=== PATIENT | male | born 1980 | race African-American/Black ===

== ENCOUNTER 2018-05-15 15:54 | Emergency (ER) | payer SELFPAY ==
--- NOTE | 2018-05-15 17:07 | ED ---
Psychiatric Complaint - HPI Summary HPI Summary: This pt is a 37 y/o male presenting to [facility] c/o depression and SI thoughts. Pt reports he just recently moved from [place] to [place] 4 days ago. He states he is in dialysis for end stage renal disease and this makes him depressed. Today he had dialysis. Pt notes he called a cab to go back home but was charged $11 and became angry. He notes he slammed the door. Pt reports SI thoughts. Denies SI plan, HI thoughts/plan. Denies SOB, chest pain, dizziness. Pt has hx of suicide attempt 20 years ago. PMHx: ESRD, depression. Denies drug, alcohol, tobacco use. - History Of Current Complaint Chief Complaint: EDMentalHealth Hx Obtained From: Patient Onset/Duration: Lasting Days, Still Present Timing: Days Severity Currently: Moderate Character: Depressed, Angry, Frustrated Aggravating Factor(s): Recent Stress Alleviating Factor(s): Nothing Related History: Positive For: Prior Psychiatric Issues Has Suicidal: Reports: Thoughts. Denies: With A Plan Has Homicidal: Denies: Thoughts, With A Plan Recent Stressor(s): today with cab - Allergies/Home Medications Allergies/Adverse Reactions: Allergies Allergy/AdvReac Type Severity Reaction Status Date / Time morphine Allergy Hallucinati Verified 05/15/18 16:21 ons PMH/Surg Hx/FS Hx/Imm Hx Endocrine/Hematology History: Denies: Hx Diabetes Cardiovascular History: Denies: Hx Hypertension History: Reports: Hx Chronic Renal Failure, Hx Dialysis, Other Problems/ Disorders - ESRD Psychiatric History: Reports: Hx Depression - Surgical History Surgery Procedure, Year, and Place: none Infectious Disease History: No Infectious Disease History: Denies: Traveled Outside the [place] in Last 30 Days - Family History Known Family History: Positive: Diabetes - brother - Social History Alcohol Use: None Substance Use Type: Reports: None Smoking Status (MU): Never Smoked Tobacco Review of Systems Negative: Fever, Chills ENT: Negative Negative: Chest Pain Negative: Shortness Of Breath Gastrointestinal: Negative Neurological: Other - NEG: dizziness Psychological: Other - SI thoughts, angry Positive: Depressed. Negative: Other - SI plan, HI thoughts/plan All Other Systems Reviewed And Are Negative: Yes Physical Exam - Summary Physical Exam Summary: VITAL SIGNS: Reviewed. GENERAL: Patient is a well-developed and nourished male. Patient is not in any acute respiratory distress. HEAD AND FACE: No signs of trauma. No ecchymosis, hematomas or skull depressions. No sinus tenderness. EYES: PERRLA, EOMI x 2, No injected conjunctiva, no nystagmus. EARS: Hearing grossly intact. Ear canals and tympanic membranes are within normal limits. MOUTH: Oropharynx within normal limits. NECK: Supple, trachea is midline, no adenopathy, no JVD, no carotid bruit, no c- spine tenderness, neck with full ROM. CHEST: Symmetric, no tenderness at palpation LUNGS: Clear to auscultation bilaterally. No wheezing or crackles. CVS: Regular rate and rhythm, S1 and S2 present, no murmurs or gallops appreciated. ABDOMEN: Soft, non-tender. No signs of distention. No rebound, no guarding, and no masses palpated. Bowel sounds are normal. EXTREMITIES: FROM in all major joints, no edema, no cyanosis or clubbing. NEURO: Alert and oriented x 3. No acute neurological deficits. Speech is normal and follows commands. SKIN: Dry and warm Triage Information Reviewed: Yes Vital Signs On Initial Exam: Initial Vitals Temp Pulse Resp BP Pulse Ox 98.2 F 85 16 146/72 98 05/15/18 16:17 05/15/18 16:17 05/15/18 16:17 05/15/18 16:17 05/15/18 16:17 Vital Signs Reviewed: Yes Diagnostics - Vital Signs Vital Signs Temp Pulse Resp BP Pulse Ox 05/15/18 16:17 98.2 F 85 16 146/72 98 - Laboratory Result Diagrams: 05/15/18 17:21 05/15/18 17:21 Lab Statement: Any lab studies that have been ordered have been reviewed, and results considered in the medical decision making process. Course/Dx - Course Assessment/Plan: Patient is a 37 y/o male with hx of ESRD and on dialysis, who had dialysis today, presents with depression and SI thoughts. Test results show hemoglobin of 8.2 and hematocrit of 25, creatinine of 10.6. Patient's creatinine is usually about 10. Patient does not have any SOB, chest pain or dizziness. Pt is medically cleared at 18:41. He is hemodynamically stable, alert and oriented x3. Pt will be signed out to Dr. Duran pending mental health evaluation. - Differential Dx/Clinical Impression Provider Diagnosis: Depression Discharge - Sign-Out/Discharge Documenting (check all that apply): Sign-Out Patient Signing out patient TO: Barney Duran - pending dispo, awaiting MHE - Discharge Plan Condition: Stable Referrals: [facility] [Outside] - Attestation Statements Document Initiated by Scribe: Yes Documenting Scribe: Sherie Renee Provider For Whom Scribe is Documenting (Include Credential): Zhou Gao MD Scribe Attestation: Sherie Mcgregor, scribed for Zhou Gao MD on 05/15/18 at 1904.
[2018-05-15 18:35] LABS: ABS Basophils 0.1 10^3/ul (0-0.2); ABS Eosinophils 0.3 10^3/ul (0-0.6); ABS Lymphocytes 1.2 10^3/ul (1.0-4.8); ABS Monocytes 0.4 10^3/ul (0-0.8); ABS Neutrophils 3.6 10^3/ul (1.5-7.7); ABS Nucleated RBC 0.1 10^3/ul; Eosinophil % 6.3 % (0-6); Hematocrit 25 % (42-52); Hemoglobin 8.2 g/dl (14.0-18.0); Lymphocyte % 21.3 % (25-47); Mean Corpuscular HGB Conc 33 g/dl (31-36); Mean Corpuscular Hemoglobin 30 pg (27-31); Mean Corpuscular Volume 92 fL (80-94); Mean Platelet Volume 9.2 um3 (7.4-10.4); Nucleated Red Blood Cells % 0.9; Platelet Count 231 10^3/ul (150-450); Red Blood Count 2.73 10^6/ul (4.00-5.40); Red Cell Distribution Width 18 % (10.5-15); White Blood Count 5.5 10^3/ul (3.5-10.8)
[2018-05-15 18:52] LABS: EGFR Non-African American 5.7 (>60)
--- NOTE | 2018-05-15 19:38 | ED ---
Progress - Progress Note Progress Note: The patient is a sign-out from Dr. Zhou Gao MD to Dr. Barney Duran MD at change of shift at 19:00 pending mental health evaluation. He is diagnosed with depression. Patient will be discharged home. He is agreeable with this plan. Course/Dx - Diagnoses Provider Diagnoses: Depression Discharge - Sign-Out/Discharge Documenting (check all that apply): Patient Departure - Patient will be discharged home., Receiving Sign-Out Receiving patient FROM: Zhou Gao - Patient is a sign-out from Dr. Gao at shift change pending MHE. - Discharge Plan Condition: Stable Disposition: HOME Patient Education Materials: Depression (ED) Referrals: [facility] [Outside] Additional Instructions: Per completion of a mental health evaluation, you are cleared for release and do not require inpatient psychiatric hospitalization at this time. Please go to nearest emergency room or call 911 if safety concerns arise or condition worsens. Important Phone Numbers: [facility] ph:[phone] Su[facility] Prevention [facility] Crisis Services ph:[phone] National Suicide Prevention Lifeline ph:[phone] ([phone]) [facility] ph:[phone] Alcoholics Anonymous ph: [facility] ph:[phone] [facility] ph:[phone] Follow up with [facility] on Friday . Return if symptoms worsen or necessary. - Billing Disposition and Condition Condition: STABLE Disposition: Home - Attestation Statements Document Initiated by Harshilibe: Yes Documenting Scribe: Justyna Salgado Provider For Whom Vidhi is Documenting (Include Credential): Dr. Barney Duran MD Scribe Attestation: Justyna Mcgregor scribed for Dr. Barney Duran MD on 05/16/18 at 0614. Scribe Documentation Reviewed: Yes Provider Attestation: The documentation as recorded by the Justyna yoder accurately reflects the service I personally performed and the decisions made by me, Dr. Barney Duran MD
[2018-05-15 22:48] VITALS: BP 140/46
== END 2018-05-15 23:13 | disposition home or self-care (01) ==
LOC: ED 15:54
DX: F32.9 Major depressive disorder, single episode, unspecified (principal); N18.6 End stage renal disease; Z87.891 Personal history of nicotine dependence
CPT/HCPCS: 36415; 80053; 80320; 80329; 84443; 85025; 99284; G0480

== ENCOUNTER 2018-06-15 12:36 | Observation (INO) | payer MEDICAID, OTHER ==
[2018-06-15 15:09] LABS: ABS Basophils 0 10^3/ul (0-0.2); ABS Eosinophils 0.4 10^3/ul (0-0.6); ABS Lymphocytes 1.1 10^3/ul (1.0-4.8); ABS Monocytes 0.3 10^3/ul (0-0.8); ABS Neutrophils 3.4 10^3/ul (1.5-7.7); ABS Nucleated RBC 0 10^3/ul; Eosinophil % 7.3 % (0-6); Hematocrit 27 % (42-52); Hemoglobin 8.6 g/dl (14.0-18.0); Lymphocyte % 20.8 % (25-47); Mean Corpuscular HGB Conc 33 g/dl (31-36); Mean Corpuscular Hemoglobin 30 pg (27-31); Mean Corpuscular Volume 93 fL (80-94); Mean Platelet Volume 8.5 fL (7.4-10.4); Nucleated Red Blood Cells % 0.2; Platelet Count 204 10^3/ul (150-450); Red Blood Count 2.86 10^6/ul (4.00-5.40); Red Cell Distribution Width 18 % (10.5-15); White Blood Count 5.2 10^3/ul (3.5-10.8)
[2018-06-15 15:40] LABS: Albumin 3.3 g/dL (3.2-5.2); Albumin/Globulin Ratio 1.2 (1-3); C Reactive Protein 14.48 mg/L (<8.01); Calcium 7.6 mg/dL (8.6-10.3); EGFR African American 5.4 (>60); EGFR Non-African American 4.5 (>60); Globulin 2.7 g/dL (2-4); Potassium 4.3 mmol/L (3.5-5.0); Total Bilirubin 0.3 mg/dL (0.2-1.0)
[2018-06-15] MEDS: NS 0.9% 1000 ML** 1,000 ML IV ONE ×2 (17:21→17:25)
--- NOTE | 2018-06-15 19:28 | ED ---
Abdominal Pain/Male - HPI Summary HPI Summary: Patient on dialysis complains of generalized upper abdominal pain 1 week, exertional SOB 2 days. Abdominal pain described as intermittent, worse with eating. Denies fever, sore throat, KRISHNA, neck stiffness, CP, N/V/D, change in urine, change in BM. Medical history is dialysis. Abdominal surgical history is none. - History of Current Complaint Chief Complaint: EDAbdPain Stated Complaint: ABD PAIN Time Seen by Provider: 06/15/18 14:59 Hx Obtained From: Patient Onset/Duration: Gradual Onset Timing: Intermittent, Lasting Days Severity Initially: Moderate Severity Currently: Severe Pain Intensity: 10 Pain Scale Used: 0-10 Numeric Location: Discrete At: RUQ, Discrete At: LUQ, Epigastric Radiates: No Character: Sharp, Cramping Aggravating Factor(s): Food Alleviating Factor(s): Nothing Associated Signs And Symptoms: Positive: Negative - Allergies/Home Medications Allergies/Adverse Reactions: Allergies Allergy/AdvReac Type Severity Reaction Status Date / Time morphine Allergy Hallucinati Verified 06/15/18 12:45 ons PMH/Surg Hx/FS Hx/Imm Hx Endocrine/Hematology History: Denies: Hx Diabetes Cardiovascular History: Denies: Hx Hypertension History: Reports: Hx Chronic Renal Failure, Hx Dialysis, Other Problems/ Disorders - ESRD Psychiatric History: Reports: Hx Depression Denies: Hx Eating Disorder, Hx of Violent Episodes Against Others - Surgical History Surgery Procedure, Year, and Place: none Infectious Disease History: No Infectious Disease History: Denies: Traveled Outside the US in Last 30 Days - Family History Known Family History: Positive: Diabetes - brother - Social History Alcohol Use: None Substance Use Type: Reports: None Smoking Status (MU): Never Smoked Tobacco Review of Systems Constitutional: Negative Eyes: Negative ENT: Negative Cardiovascular: Negative Positive: Shortness Of Breath Positive: Abdominal Pain Genitourinary: Negative Musculoskeletal: Negative Skin: Negative Neurological: Negative Psychological: Normal All Other Systems Reviewed And Are Negative: Yes Physical Exam - Summary Physical Exam Summary: Pain with palpation of right upper quadrant and epigastrium. Positive Kohler' s. Abdominal exam otherwise mild. Triage Information Reviewed: Yes Vital Signs On Initial Exam: Initial Vitals Temp Pulse Resp BP Pulse Ox 97.4 F 84 16 138/54 98 06/15/18 12:40 06/15/18 12:40 06/15/18 12:40 06/15/18 12:40 06/15/18 12:40 Vital Signs Reviewed: Yes Appearance: Positive: Well-Appearing Skin: Positive: Warm Head/Face: Positive: Normal Head/Face Inspection Eyes: Positive: Normal Neck: Positive: Supple Respiratory/Lung Sounds: Positive: Clear to Auscultation Cardiovascular: Positive: Normal Abdomen Description: Positive: Other: Musculoskeletal: Positive: Normal Neurological: Positive: Normal Psychiatric: Positive: Normal AVPU Assessment: Alert - [place] Coma Scale Best Eye Response: 4 - Spontaneous Best Motor Response: 6 - Obeys Commands Best Verbal Response: 5 - Oriented Coma Scale Total: 15 Diagnostics - Vital Signs Vital Signs Temp Pulse Resp BP Pulse Ox 06/15/18 12:40 97.4 F 84 16 138/54 98 - Laboratory Lab Results: Lab Results 06/15/18 06/15/18 06/15/18 Range/Units 14:56 14:56 14:56 WBC 5.2 (3.5-10.8) 10^3/ul RBC 2.86 L (4.00-5.40) 10^6/ul Hgb 8.6 L (14.0-18.0) g/dl Hct 27 L (42-52) % MCV 93 (80-94) fL MCH 30 (27-31) pg MCHC 33 (31-36) g/dl RDW 18 H (10.5-15) % Plt Count 204 (150-450) 10^3/ul MPV 8.5 (7.4-10.4) fL Neut % (Auto) 65.1 (38-83) % Lymph % (Auto) 20.8 L (25-47) % [place] % (Auto) 6.6 (0-7) % Eos % (Auto) 7.3 H (0-6) % Baso % (Auto) 0.2 (0-2) % Absolute Neuts (auto) 3.4 (1.5-7.7) 10^3/ul Absolute Lymphs (auto) 1.1 (1.0-4.8) 10^3/ul Absolute Monos (auto) 0.3 (0-0.8) 10^3/ul Absolute Eos (auto) 0.4 (0-0.6) 10^3/ul Absolute Basos (auto) 0 (0-0.2) 10^3/ul Absolute Nucleated RBC 0 10^3/ul Nucleated RBC % 0.2 Sodium 142 (135-145) mmol/L Potassium 4.3 (3.5-5.0) mmol/L Chloride 101 (101-111) mmol/L Carbon Dioxide 27 (22-32) mmol/L Anion Gap 14 H (2-11) mmol/L BUN 50 H (6-24) mg/dL Creatinine 12.58 H (0.67-1.17) mg/dL Est GFR ( Amer) 5.4 (>60) Est GFR (Non-Af Amer) 4.5 (>60) BUN/Creatinine Ratio 4.0 L (8-20) Glucose 148 H (70-100) mg/dL Lactic Acid 1.1 (0.5-2.0) mmol/L Calcium 7.6 L (8.6-10.3) mg/dL Total Bilirubin 0.30 (0.2-1.0) mg/dL AST 12 L (13-39) U/L ALT 21 (7-52) U/L Alkaline Phosphatase 59 (34-104) U/L Troponin I 0.00 (<0.04) ng/mL C-Reactive Protein 14.48 H (<8.01) mg/L B-Natriuretic Peptide (<=100) pg/mL Total Protein 6.0 L (6.4-8.9) g/dL Albumin 3.3 (3.2-5.2) g/dL Globulin 2.7 (2-4) g/dL Albumin/Globulin Ratio 1.2 (1-3) Lipase 15 (11.0-82.0) U/L 06/15/18 Range/Units 14:56 WBC (3.5-10.8) 10^3/ul RBC (4.00-5.40) 10^6/ul Hgb (14.0-18.0) g/dl Hct (42-52) % MCV (80-94) fL MCH (27-31) pg MCHC (31-36) g/dl RDW (10.5-15) % Plt Count (150-450) 10^3/ul MPV (7.4-10.4) fL Neut % (Auto) (38-83) % Lymph % (Auto) (25-47) % [place] % (Auto) (0-7) % Eos % (Auto) (0-6) % Baso % (Auto) (0-2) % Absolute Neuts (auto) (1.5-7.7) 10^3/ul Absolute Lymphs (auto) (1.0-4.8) 10^3/ul Absolute Monos (auto) (0-0.8) 10^3/ul Absolute Eos (auto) (0-0.6) 10^3/ul Absolute Basos (auto) (0-0.2) 10^3/ul Absolute Nucleated RBC 10^3/ul Nucleated RBC % Sodium (135-145) mmol/L Potassium (3.5-5.0) mmol/L Chloride (101-111) mmol/L Carbon Dioxide (22-32) mmol/L Anion Gap (2-11) mmol/L BUN (6-24) mg/dL Creatinine (0.67-1.17) mg/dL Est GFR ( Amer) (>60) Est GFR (Non-Af Amer) (>60) BUN/Creatinine Ratio (8-20) Glucose (70-100) mg/dL Lactic Acid (0.5-2.0) mmol/L Calcium (8.6-10.3) mg/dL Total Bilirubin (0.2-1.0) mg/dL AST (13-39) U/L ALT (7-52) U/L Alkaline Phosphatase (34-104) U/L Troponin I (<0.04) ng/mL C-Reactive Protein (<8.01) mg/L B-Natriuretic Peptide 3318 H (<=100) pg/mL Total Protein (6.4-8.9) g/dL Albumin (3.2-5.2) g/dL Globulin (2-4) g/dL Albumin/Globulin Ratio (1-3) Lipase (11.0-82.0) U/L Result Diagrams: 06/15/18 14:56 06/15/18 14:56 Lab Statement: Any lab studies that have been ordered have been reviewed, and results considered in the medical decision making process. Abdominal Pain Fem Course/Dx - Course Course Of Treatment: Patient on dialysis complains of generalized upper abdominal pain 1 week, exertional SOB 2 days. Abdominal pain described as intermittent, worse with eating. Denies fever, sore throat, KRISHNA, neck stiffness , CP, N/V/D, change in urine, change in BM. Medical history is dialysis. Abdominal surgical history is none. Physical exam:Pain with palpation of right upper quadrant and epigastrium. Positive Kohler's. Abdominal exam otherwise mild. Ultrasound took 4 hours to get read. Ultrasound tetanus cholecystitis cannot be ruled out. Gallbladder wall thickening to 5 mm. Normal white count. Elevated LFTs normal. Discussed patient with Dr. Brooke recommends admission to hospitalist, started on Zosyn. We will consult. Admission to hospital - Diagnoses Provider Diagnoses: Acute acalculous cholecystitis Discharge - Sign-Out/Discharge Documenting (check all that apply): Patient Departure - Discharge Plan Condition: Stable Disposition: ADMITTED TO [facility] - Billing Disposition and Condition Condition: STABLE Disposition: Admitted to [facility]
[2018-06-15] MEDS ORDERED: Piperacillin/Tazobac ADVAN(*) 3.375 GM in NS 0.9% 100 ML* 100 ML IVPB ONE ×2 (19:55→20:00)
[2018-06-15] MEDS ORDERED: Morphine VIAL* 4 MG/ML VIAL (1 ml vial) IV PRN (20:04)
[2018-06-15] MEDS ORDERED: Thiamine IV* 100 MG/ML 2 ML VIAL IM ONE (20:06)
[2018-06-15] MEDS ORDERED: Albuterol/Ipratropium NEB.SOL* Albuterol 2.5 MG/Ipratropium 0.5 MG 3 ML INH PRN (20:43)
[2018-06-15] MEDS ORDERED: Famotidine TAB* 20 MG PO ONE (20:52)
[2018-06-15] MEDS ORDERED: LORazepam INJ* 2 MG/ML 1 ML VIAL IV PUSH SCH (21:00)
[2018-06-15] MEDS ORDERED: Piperacillin/Tazobactam VIAL*) 3.375 GM/15 ML VIAL IVPB SCH (21:00)
[2018-06-15] MEDS ORDERED: NS 0.9% 1000 ML** 1,000 ML IV SCH (21:45)
[2018-06-15] MEDS ORDERED: cefTRIAXone VIAL(*) 1,000 MG in NS 0.9% 50 ML* 50 ML IVPB SCH (22:00)
[2018-06-15] MEDS: Benzonatate CAP* 100 MG PO SCH (22:16)
[2018-06-15] MEDS: Aspirin EC TAB* 81 MG TAB.EC PO SCH (22:17)
--- NOTE | 2018-06-15 22:21 | ADMNOTE ---
Subjective Date of Service: 06/15/18 Interval History: code status this is an admission h/p pt is a poor historian not even sure why he is on hd hpi this is a 37 yr old aa male with hx of esrd for the 5 yrs on presented to er with stomach pain for one week. pain described sharp type intermittant each episode would last 10-20 min intensity has been around 6-8/10. now his abd pain has progressed to chest pain with some sob. going to have bm makes the pain better but does not notice anything makes it worse. last meal was 10 am today. abd sono + acalculous cholycystitis but wbc was neg ---> surgery Dr Moya was called from er and suggested first started with abx will see pt in am phx esrd on hd with left arm av fistula on for the past 5 yrs ---> pt himself was not sure why he has been on hd ( reluctant to reveal his illicit drug/st drug use hx ) htn morbid obesity ? 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 fhx brother + dm Family History: Findings - brother + dm Social History: Findings - quit cig 3 yrs quit etoh 5 yrs ago still uses marijuana Past Medical History: Findings - as above Review of Systems - Measurements Intake and Output: Intake and Output Last 24 Hours 06/13/18 06/14/18 06/15/18 06/16/18 07:59 06:59 06:59 06:59 Weight 244 lb 0.827 oz - Review of Systems General Comments: pertinent as per hpi Objective Active Medications: Albuterol/Ipratropium (Duoneb (Albuterol 2.5 Mg/Ipratropium 0.5 Mg)) 1 neb INH Q6H PRN PRN Reason: SOB/WHEEZING Aspirin (Aspirin Ec Tab*) 81 mg PO DAILY [place] Benzonatate (Tessalon Cap*) 100 mg PO TID [place] Metronidazole/Sodium Chloride (Flagyl 500 Mg Ivpb*) 500 mg in 100 mls @ 100 mls /hr IVPB Q8H [place] Morphine Sulfate (Morphine Vial*) 1 mg IV Q4H PRN PRN Reason: PAIN Ondansetron HCl (Zofran Inj*) 4 mg IV Q6H PRN PRN Reason: NAUSEA Piperacillin Sod/Tazobactam Sod (Zosyn(*)) 2.25 gm IVPB Q12H [facility] Vital Signs - 8 hr 06/15/18 06/15/18 06/15/18 17:50 21:24 22:08 Temperature 98.5 F 98.3 F 98.2 F Pulse Rate 76 89 88 Respiratory 20 16 18 Rate Blood Pressure 140/60 125/83 135/66 (mmHg) O2 Sat by Pulse 98 99 98 Oximetry Oxygen Devices in Use Now: Nasal Cannula Appearance: nad Eyes: No Scleral Icterus, PERRLA Ears/Nose/Mouth/Throat: NL Teeth, Lips, Gums, Clear Oropharnyx, Mucous Membranes Moist Neck: NL Appearance and Movements; NL JVP, Trachea Midline, No Thyroid Enlargement, Masses Respiratory: Symmetrical Chest Expansion and Respiratory Effort, Clear to Auscultation Cardiovascular: NL Sounds; No Murmurs; No JVD, RRR Abdominal: - - + bs + ruq tenderness > luq tenderness Extremities: No Edema, - - able to raise ue and le against gravity Skin: No Rash or Ulcers Neurological: Alert and Oriented x 3, NL Sensation, NL Muscle Strength and Tone Result Diagrams: 06/16/18 03:13 06/16/18 03:13 Additional Lab and Data: Lab Results 06/15/18 06/15/18 06/15/18 Range/Units 14:56 14:56 14:56 WBC 5.2 (3.5-10.8) 10^3/ul RBC 2.86 L (4.00-5.40) 10^6/ul Hgb 8.6 L (14.0-18.0) g/dl Hct 27 L (42-52) % MCV 93 (80-94) fL MCH 30 (27-31) pg MCHC 33 (31-36) g/dl RDW 18 H (10.5-15) % Plt Count 204 (150-450) 10^3/ul MPV 8.5 (7.4-10.4) fL Neut % (Auto) 65.1 (38-83) % Lymph % (Auto) 20.8 L (25-47) % [place] % (Auto) 6.6 (0-7) % Eos % (Auto) 7.3 H (0-6) % Baso % (Auto) 0.2 (0-2) % Absolute Neuts (auto) 3.4 (1.5-7.7) 10^3/ul Absolute Lymphs (auto) 1.1 (1.0-4.8) 10^3/ul Absolute Monos (auto) 0.3 (0-0.8) 10^3/ul Absolute Eos (auto) 0.4 (0-0.6) 10^3/ul Absolute Basos (auto) 0 (0-0.2) 10^3/ul Absolute Nucleated RBC 0 10^3/ul Nucleated RBC % 0.2 Sodium 142 (135-145) mmol/L Potassium 4.3 (3.5-5.0) mmol/L Chloride 101 (101-111) mmol/L Carbon Dioxide 27 (22-32) mmol/L Anion Gap 14 H (2-11) mmol/L BUN 50 H (6-24) mg/dL Creatinine 12.58 H (0.67-1.17) mg/dL Est GFR ( Amer) 5.4 (>60) Est GFR (Non-Af Amer) 4.5 (>60) BUN/Creatinine Ratio 4.0 L (8-20) Glucose 148 H (70-100) mg/dL Lactic Acid 1.1 (0.5-2.0) mmol/L Calcium 7.6 L (8.6-10.3) mg/dL Total Bilirubin 0.30 (0.2-1.0) mg/dL AST 12 L (13-39) U/L ALT 21 (7-52) U/L Alkaline Phosphatase 59 (34-104) U/L Troponin I 0.00 (<0.04) ng/mL C-Reactive Protein 14.48 H (<8.01) mg/L B-Natriuretic Peptide (<=100) pg/mL Total Protein 6.0 L (6.4-8.9) g/dL Albumin 3.3 (3.2-5.2) g/dL Globulin 2.7 (2-4) g/dL Albumin/Globulin Ratio 1.2 (1-3) Lipase 15 (11.0-82.0) U/L 11/05/18 Range/Units 14:56 WBC (3.5-10.8) 10^3/ul RBC (4.00-5.40) 10^6/ul Hgb (14.0-18.0) g/dl Hct (42-52) % MCV (80-94) fL MCH (27-31) pg MCHC (31-36) g/dl RDW (10.5-15) % Plt Count (150-450) 10^3/ul MPV (7.4-10.4) fL Neut % (Auto) (38-83) % Lymph % (Auto) (25-47) % [place] % (Auto) (0-7) % Eos % (Auto) (0-6) % Baso % (Auto) (0-2) % Absolute Neuts (auto) (1.5-7.7) 10^3/ul Absolute Lymphs (auto) (1.0-4.8) 10^3/ul Absolute Monos (auto) (0-0.8) 10^3/ul Absolute Eos (auto) (0-0.6) 10^3/ul Absolute Basos (auto) (0-0.2) 10^3/ul Absolute Nucleated RBC 10^3/ul Nucleated RBC % Sodium (135-145) mmol/L Potassium (3.5-5.0) mmol/L Chloride (101-111) mmol/L Carbon Dioxide (22-32) mmol/L Anion Gap (2-11) mmol/L BUN (6-24) mg/dL Creatinine (0.67-1.17) mg/dL Est GFR ( Amer) (>60) Est GFR (Non-Af Amer) (>60) BUN/Creatinine Ratio (8-20) Glucose (70-100) mg/dL Lactic Acid (0.5-2.0) mmol/L Calcium (8.6-10.3) mg/dL Total Bilirubin (0.2-1.0) mg/dL AST (13-39) U/L ALT (7-52) U/L Alkaline Phosphatase (34-104) U/L Troponin I (<0.04) ng/mL C-Reactive Protein (<8.01) mg/L B-Natriuretic Peptide 3318 H (<=100) pg/mL Total Protein (6.4-8.9) g/dL Albumin (3.2-5.2) g/dL Globulin (2-4) g/dL Albumin/Globulin Ratio (1-3) Lipase (11.0-82.0) U/L EKG Data: ns no acute st t changes Assess/Plan/Problems-Billing Assessment: this is a 37 yr old aa male with hx of esrd on hd for 5 yrs presented to er first with abd pain later mixed with chest pain. abd sono showed achaculous cholycystitis intial wbc was neg got zosyn and flagyl while waiting for surgery eval intial trop and ekg were neg stress ordered for am due to the fact he is high risk with esrd - Patient Problems (1) ESRD (end stage renal disease) Current Visit: Yes Status: Acute Code(s): N18.6 - END STAGE RENAL DISEASE SNOMED Code(s): 69170662 Comment: will call renal for hd today (2) HTN (hypertension) Current Visit: Yes Status: Acute Code(s): I10 - ESSENTIAL (PRIMARY) HYPERTENSION SNOMED Code(s): 59752494 Comment: sbp wnl continue outpt meds (3) Morbid obesity Current Visit: Yes Status: Acute Code(s): E66.01 - MORBID (SEVERE) OBESITY DUE TO EXCESS CALORIES SNOMED Code(s): 151007188 Comment: supportive care (4) Marijuana dependence Current Visit: Yes Status: Acute Code(s): F12.20 - CANNABIS DEPENDENCE, UNCOMPLICATED SNOMED Code(s): 67994928 Comment: supportive care (5) Abdominal pain Current Visit: Yes Status: Acute Code(s): R10.9 - UNSPECIFIED ABDOMINAL PAIN SNOMED Code(s): 10577453 Comment: ultram prn for pain 25 mg bid prn based upon his esrd status surgery will see him in am acachulous cholycystitis due to generalized gall bladder wall thickening despite no wbc/fever on abx zosyn and flaygl while waiting for surgery eval strict npo (6) Chest pain Current Visit: Yes Status: Acute Code(s): R07.9 - CHEST PAIN, UNSPECIFIED SNOMED Code(s): 82977487 Comment: tele with rodger stress test (7) Leaky heart valve Current Visit: Yes Status: Acute Code(s): I38 - ENDOCARDITIS, VALVE UNSPECIFIED SNOMED Code(s): 28500538 Comment: echo in am
[2018-06-15] MEDS ORDERED: Zosyn per Pharmacy* NOTE FOLLOW UP PRN (22:47)
[2018-06-15] MEDS ORDERED: Zosyn 3.375 gm X 1 dose, then dose per Pharmacy IVPB ONE ×2 (23:00)
[2018-06-15] MEDS: metroNIDAZOLE IV 500 MG/100ML* 500 MG/100 ML BAG IVPB SCH (23:17)
[2018-06-16] MEDS ORDERED: traMADol TAB* 50 MG PO ONE ×2 (01:00→10:25)
[2018-06-16] MEDS: Ondansetron INJ* 2 MG/ML VIAL IV PRN ×2 (01:07→07:30)
[2018-06-16] MEDS: ZOSYN 3.375 GM Q12H per EXTENDED INFUSION IVPB SCH ×4 (03:12→16:03)
[2018-06-16 03:32] LABS: ABS Basophils 0.1 10^3/ul (0-0.2); ABS Eosinophils 0.4 10^3/ul (0-0.6); ABS Lymphocytes 1.2 10^3/ul (1.0-4.8); ABS Monocytes 0.3 10^3/ul (0-0.8); ABS Neutrophils 2.4 10^3/ul (1.5-7.7); ABS Nucleated RBC 0 10^3/ul; Eosinophil % 9.7 % (0-6); Hematocrit 25 % (42-52); Hemoglobin 8.1 g/dl (14.0-18.0); Lymphocyte % 26.4 % (25-47); Mean Corpuscular HGB Conc 32 g/dl (31-36); Mean Corpuscular Hemoglobin 30 pg (27-31); Mean Corpuscular Volume 93 fL (80-94); Mean Platelet Volume 8.7 fL (7.4-10.4); Nucleated Red Blood Cells % 0.1; Platelet Count 208 10^3/ul (150-450); Red Blood Count 2.72 10^6/ul (4.00-5.40); Red Cell Distribution Width 19 % (10.5-15); White Blood Count 4.4 10^3/ul (3.5-10.8)
[2018-06-16 03:48] LABS: Albumin 3.2 g/dL (3.2-5.2); Albumin/Globulin Ratio 1.3 (1-3); BUN/Creatinine Ratio 3.9 (8-20); Calcium 7.8 mg/dL (8.6-10.3); EGFR African American 4.9 (>60); Globulin 2.5 g/dL (2-4); HDL Cholesterol 24.6 mg/dL; Potassium 4.5 mmol/L (3.5-5.0); Total Bilirubin 0.5 mg/dL (0.2-1.0); Total Protein 5.7 g/dL (6.4-8.9)
[2018-06-16 04:21] LABS: TSH (Thyroid Stimulating Horm) 2.07 mcIU/mL (0.34-5.60)
[2018-06-16] MEDS: Benzonatate CAP* 100 MG PO SCH ×3 (07:30→20:31)
[2018-06-16] MEDS: Aspirin EC TAB* 81 MG TAB.EC PO SCH (07:30)
[2018-06-16] MEDS: metroNIDAZOLE IV 500 MG/100ML* 500 MG/100 ML BAG IVPB SCH ×2 (08:29→14:23)
[2018-06-16] MEDS ORDERED: traMADol TAB* 50 MG PO PRN ×3 (12:40→16:57)
--- NOTE | 2018-06-16 15:21 | PN ---
Subjective Date of Service: 06/16/18 Interval History: . Pt reports he continues to have pain in his right upper abdomen stating its the same as yesterday. He reports that it started approx 1 week ago but he didn't think much about it but has become increasing worse over the last week. worse after eating. Denies fever or chills. No N/V/D. Pt is upset that he is NPO and states he feels hungry. He denies CP/SOB Family History: Findings - brother + dm Social History: Findings - quit cig 3 yrs quit etoh 5 yrs ago still uses marijuana Past Medical History: Findings - as above Objective Active Medications: Albuterol/Ipratropium (Duoneb (Albuterol 2.5 Mg/Ipratropium 0.5 Mg)) 1 neb INH Q6H PRN PRN Reason: SOB/WHEEZING Aspirin (Aspirin Ec Tab*) 81 mg PO DAILY [facility] Last Admin: 06/16/18 07:30 Dose: 81 mg Benzonatate (Tessalon Cap*) 100 mg PO TID [facility] Last Admin: 06/16/18 14:22 Dose: 100 mg Metronidazole/Sodium Chloride (Flagyl 500 Mg Ivpb*) 500 mg in 100 mls @ 100 mls /hr IVPB Q8H [facility] Last Admin: 06/16/18 14:23 Dose: 100 mls/hr Piperacillin Sod/Tazobactam (Sod 3.375 gm/ Sodium Chloride) 100 mls @ 25 mls/ hr IVPB Q12H [facility] Last Admin: 06/16/18 03:12 Dose: 25 mls/hr Ondansetron HCl (Zofran Inj*) 4 mg IV Q6H PRN PRN Reason: NAUSEA Last Admin: 06/16/18 07:30 Dose: 4 mg Pharmacy Consult (Zosyn Per Pharmacy*) 1 note FOLLOW UP . PRN PRN Reason: PER PROTOCOL Tramadol HCl (Ultram*) 25 mg PO Q6H PRN PRN Reason: PAIN Vital Signs - 8 hr 06/16/18 06/16/18 06/16/18 07:43 08:12 11:14 Temperature 97.8 F Pulse Rate 78 Respiratory 18 16 22 Rate Blood Pressure 102/40 (mmHg) O2 Sat by Pulse 98 Oximetry Oxygen Devices in Use Now: Nasal Cannula Appearance: A+O x3 37 yo chronically ill appearing male in NAD Eyes: No Scleral Icterus, PERRLA Ears/Nose/Mouth/Throat: Mucous Membranes Moist Respiratory: Symmetrical Chest Expansion and Respiratory Effort, Clear to Auscultation Cardiovascular: NL Sounds; No Murmurs; No JVD, RRR, - Abdominal: - - obese, distended, soft - tender with mild guarding to RUQ. NL BS. Extremities: No Clubbing, Cyanosis Neurological: Alert and Oriented x 3, NL Sensation, NL Gait, NL Muscle Strength and Tone Lines/Tubes/Other Access: Clean, Dry and Intact Peripheral IV Nutrition: - - NPO Result Diagrams: 06/16/18 03:13 06/16/18 03:13 Additional Lab and Data: Lab Results 06/15/18 06/15/18 06/15/18 Range/Units 14:56 14:56 14:56 WBC 5.2 (3.5-10.8) 10^3/ul RBC 2.86 L (4.00-5.40) 10^6/ul Hgb 8.6 L (14.0-18.0) g/dl Hct 27 L (42-52) % MCV 93 (80-94) fL MCH 30 (27-31) pg MCHC 33 (31-36) g/dl RDW 18 H (10.5-15) % Plt Count 204 (150-450) 10^3/ul MPV 8.5 (7.4-10.4) fL Neut % (Auto) 65.1 (38-83) % Lymph % (Auto) 20.8 L (25-47) % [place] % (Auto) 6.6 (0-7) % Eos % (Auto) 7.3 H (0-6) % Baso % (Auto) 0.2 (0-2) % Absolute Neuts (auto) 3.4 (1.5-7.7) 10^3/ul Absolute Lymphs (auto) 1.1 (1.0-4.8) 10^3/ul Absolute Monos (auto) 0.3 (0-0.8) 10^3/ul Absolute Eos (auto) 0.4 (0-0.6) 10^3/ul Absolute Basos (auto) 0 (0-0.2) 10^3/ul Absolute Nucleated RBC 0 10^3/ul Nucleated RBC % 0.2 Sodium 142 (135-145) mmol/L Potassium 4.3 (3.5-5.0) mmol/L Chloride 101 (101-111) mmol/L Carbon Dioxide 27 (22-32) mmol/L Anion Gap 14 H (2-11) mmol/L BUN 50 H (6-24) mg/dL Creatinine 12.58 H (0.67-1.17) mg/dL Est GFR ( Amer) 5.4 (>60) Est GFR (Non-Af Amer) 4.5 (>60) BUN/Creatinine Ratio 4.0 L (8-20) Glucose 148 H (70-100) mg/dL Lactic Acid 1.1 (0.5-2.0) mmol/L Calcium 7.6 L (8.6-10.3) mg/dL Total Bilirubin 0.30 (0.2-1.0) mg/dL AST 12 L (13-39) U/L ALT 21 (7-52) U/L Alkaline Phosphatase 59 (34-104) U/L Troponin I 0.00 (<0.04) ng/mL C-Reactive Protein 14.48 H (<8.01) mg/L B-Natriuretic Peptide (<=100) pg/mL Total Protein 6.0 L (6.4-8.9) g/dL Albumin 3.3 (3.2-5.2) g/dL Globulin 2.7 (2-4) g/dL Albumin/Globulin Ratio 1.2 (1-3) Lipase 15 (11.0-82.0) U/L 06/15/18 Range/Units 14:56 WBC (3.5-10.8) 10^3/ul RBC (4.00-5.40) 10^6/ul Hgb (14.0-18.0) g/dl Hct (42-52) % MCV (80-94) fL MCH (27-31) pg MCHC (31-36) g/dl RDW (10.5-15) % Plt Count (150-450) 10^3/ul MPV (7.4-10.4) fL Neut % (Auto) (38-83) % Lymph % (Auto) (25-47) % [place] % (Auto) (0-7) % Eos % (Auto) (0-6) % Baso % (Auto) (0-2) % Absolute Neuts (auto) (1.5-7.7) 10^3/ul Absolute Lymphs (auto) (1.0-4.8) 10^3/ul Absolute Monos (auto) (0-0.8) 10^3/ul Absolute Eos (auto) (0-0.6) 10^3/ul Absolute Basos (auto) (0-0.2) 10^3/ul Absolute Nucleated RBC 10^3/ul Nucleated RBC % Sodium (135-145) mmol/L Potassium (3.5-5.0) mmol/L Chloride (101-111) mmol/L Carbon Dioxide (22-32) mmol/L Anion Gap (2-11) mmol/L BUN (6-24) mg/dL Creatinine (0.67-1.17) mg/dL Est GFR ( Amer) (>60) Est GFR (Non-Af Amer) (>60) BUN/Creatinine Ratio (8-20) Glucose (70-100) mg/dL Lactic Acid (0.5-2.0) mmol/L Calcium (8.6-10.3) mg/dL Total Bilirubin (0.2-1.0) mg/dL AST (13-39) U/L ALT (7-52) U/L Alkaline Phosphatase (34-104) U/L Troponin I (<0.04) ng/mL C-Reactive Protein (<8.01) mg/L B-Natriuretic Peptide 3318 H (<=100) pg/mL Total Protein (6.4-8.9) g/dL Albumin (3.2-5.2) g/dL Globulin (2-4) g/dL Albumin/Globulin Ratio (1-3) Lipase (11.0-82.0) U/L EKG Data: ns no acute st t changes Assess/Plan/Problems-Billing Assessment: 37 yr old male with hx of esrd on hd for 5 yrs, anemia, hyperparathyroid s/p parathyroidectomy presented to ER first with abd pain later mixed with chest pain. abd sono showed achaculous cholycystitis - intial wbc was neg, waiting for surgery eval, intial trop and ekg were neg stress ordered due to the fact he is high risk with esrd - Patient Problems (1) Abdominal pain Comment: Possible acalculous cholycystitis due to generalized gall bladder wall thickening despite no wbc/fever on abx zosyn and flaygl - DC flagyl Surgery consult pending - discussed over the phone plan for HIDA scan in am. Consider CT abdomen if negative. NPO (2) Chest pain Comment: Resolved Pt reports chest discomfort frequently when he is more fluid overloaded troponins negative stress test report pending (3) V-tach Comment: - 14 beat run of VT overnight - asymptomatic - no further runs - K+ wnl - add on magnesium level (4) ESRD (end stage renal disease) Comment: Plan for HD tomorrow (5) HTN (hypertension) Comment: sbp wnl continue outpt meds (6) Leaky heart valve Comment: echo pending obtain previous echo from [facility] (7) Marijuana dependence Comment: supportive care (8) Depression Comment: - pt presented to the ER initially with depression and SI and was going to be DC'd to home with f/u [facility] - Pt recently moved from [place] to [place] and is unhappy with living arrangements. - social work consult (9) DVT prophylaxis Comment: patient ambulating frequently (10) Patient is full code Status and Disposition: inpatient with abdominal pain. surgery to consult
[2018-06-16 16:17] LABS: Magnesium 2.5 mg/dL (1.9-2.7)
--- NOTE | 2018-06-16 19:54 | CONS ---
CC: Primary Care Doctor; [facility]; Dr. Mariano Saeed. * SURGICAL CONSULTATION REPORT: DATE OF CONSULT: 06/16/18 HISTORY OF PRESENT ILLNESS: Mr. Govea is a 37-year-old gentleman, who presented to the emergency room yesterday with complaints of upper abdominal pain, mostly on the right side. Workup in the emergency room including ultrasound of the gallbladder showed a suggestion of acalculous cholecystitis. Our service was called and inquired about the abdominal pain and recommended additional workup if need be and possible antibiotics and admission to the hospitalist service. This was performed and I come to see the patient at this time. The patient describes an on and off abdominal pain for the past week. Denies any nausea or vomiting along with this. Did have some shortness of breath. The patient does have end-stage renal disease, on dialysis. The patient denied any previous similar symptoms as bad as this, but also describes that the pain has somewhat improved after a bowel movement earlier today. The patient is hungry and has been maintained on n.p.o. status pending surgical evaluation. PAST MEDICAL HISTORY: End-stage renal disease, hypertension. PAST SURGICAL HISTORY: Total thyroidectomy and AV fistula. No abdominal surgeries. SOCIAL HISTORY: Former smoker. Former alcohol use. The patient lives independently. He came from [place] in the beginning of May, transferred to this location where he is closer to his brother. REVIEW OF SYSTEMS: He does complain of shortness of breath, especially prior to dialysis. No appetite. He has had 1 episode of nausea today. He describes rare elements of constipation and feels that this may have been constipation type pain. He has a history of valvular disease, it is unclear. He describes abdominal pain. He describes the constipation as described. He does not urinate. PHYSICAL EXAM: He is afebrile. Vital signs stable. Blood pressure 124/55. Alert and oriented x3. He is sitting in the chair. He is comfortable. Head, Ears, Eyes, Nose and Throat: Normocephalic, atraumatic. Sclerae are anicteric. Some proptosis. Lungs: Clear to auscultation. Good inspiratory effort. Abdomen is soft, obese, tender on deep palpation in the epigastrium, in the umbilicus and at the right upper quadrant. No masses or hernias noted. No rebound tenderness. No guarding. Rectal Exam: Not performed. Extremities with a fistula functioning in the left upper extremity. DIAGNOSTIC STUDIES/LAB DATA: Labs reviewed. Normal white count. LFTs reviewed and for the most part normal. Normal lipase as well. Ultrasound report reviewed as well as the images, shows mild thickening of the gallbladder of 2.3 mm with a question of fluid around this site, atrophic kidneys, common bile duct normal caliber. IMPRESSION AND PLAN: A 37-year-old gentleman with end-stage renal disease with abdominal pain intermittent that has improved with a large bowel movement. I do not believe the patient is suffering with acalculous cholecystitis given the imaging and the physical exam and labs. Generally, we would look towards elevated white blood count and more significant exam along with more severe findings on ultrasound. CAT scan sometimes could help delineate this; however, I have recommended to the hospitalist service a HIDA scan since the patient has been started on antibiotics and I do not wish to pull off the antibiotics without a more definitive study. For this reason, we will look towards a HIDA scan. If it rules out acalculous cholecystitis by having the finding of an unobstructed cystic duct, I think the patient should have his antibiotics discontinued and look towards discharge home. The patient may consider strongly a bowel regimen. He will get dialyzed tomorrow and hopefully this will help some of his symptoms as well. We will continue to follow throughout waiting for the HIDA scan to be completed. [id number]/CPS #: [id number] CHRISS
[2018-06-16] MEDS ORDERED: guaiFENesin/CODIEN 100MG-10MG* 5 ML UDC PO ONE (23:45)
[2018-06-17] MEDS: ZOSYN 3.375 GM Q12H per EXTENDED INFUSION IVPB SCH ×4 (03:14→15:28)
[2018-06-17] MEDS: Benzonatate CAP* 100 MG PO SCH ×3 (08:41→20:49)
[2018-06-17] MEDS: Aspirin EC TAB* 81 MG TAB.EC PO SCH (08:41)
--- NOTE | 2018-06-17 12:35 | PN ---
Progress Note - Progress Note Date of Service: 06/17/18 SOAP: Subjective: Pt seen and examined. Feels well and wants to go home after HD today. Objective: Temp Pulse Resp BP Pulse Ox 97.9 F 76 16 121/43 100 06/17/18 11:09 06/17/18 11:09 06/17/18 11:09 06/17/18 11:09 06/17/18 11:09 a and o x3, nad abdo:" soft/ obese/ NT HIDA: normal filling of cystic duct Assessment: abdominal pain -resolved , unclear etiology but not related to acalc cholecystitis Plan: d/c abx advance diet HD d/c as per hosp service
--- NOTE | 2018-06-17 17:41 | PN ---
Subjective Date of Service: 06/17/18 Interval History: Patient seen and examined, states his abdominal pain has improved with regular bowel movements, denies fever or chills, denies n/v. frustrated with NPO status this AM, explained that he needs to have HIDA scan first and be clear by surgery. Patient agreeable. Family History: Findings - brother + dm Social History: Findings - quit cig 3 yrs quit etoh 5 yrs ago still uses marijuana Past Medical History: Findings - as above Objective Active Medications: Albuterol/Ipratropium (Duoneb (Albuterol 2.5 Mg/Ipratropium 0.5 Mg)) 1 neb INH Q6H PRN PRN Reason: SOB/WHEEZING Aspirin (Aspirin Ec Tab*) 81 mg PO DAILY [facility] Last Admin: 06/17/18 08:41 Dose: Not Given Benzonatate (Tessalon Cap*) 100 mg PO TID [facility] Last Admin: 06/17/18 12:29 Dose: 100 mg Epoetin Gustavo (Epogen*) 10,000 units IV ONCE ONE Stop: 06/17/18 18:01 Heparin Sodium (Porcine) (Heparin Dialysis Only(*)) 5,000 units DIALYSIS ONCE ONE Stop: 06/17/18 18:01 Ondansetron HCl (Zofran Inj*) 4 mg IV Q6H PRN PRN Reason: NAUSEA Last Admin: 06/16/18 07:30 Dose: 4 mg Tramadol HCl (Ultram*) 25 mg PO Q8H PRN PRN Reason: PAIN Vital Signs - 8 hr 06/17/18 06/17/18 11:09 16:09 Temperature 97.9 F 98.1 F Pulse Rate 76 85 Respiratory 16 16 Rate Blood Pressure 121/43 130/46 (mmHg) O2 Sat by Pulse 100 97 Oximetry Oxygen Devices in Use Now: None Appearance: Alert, NAD Ears/Nose/Mouth/Throat: Clear Oropharnyx, Mucous Membranes Moist Neck: NL Appearance and Movements; NL JVP, Trachea Midline Respiratory: Symmetrical Chest Expansion and Respiratory Effort, - - crackles bibasilar Cardiovascular: NL Sounds; No Murmurs; No JVD, RRR Extremities: No Clubbing, Cyanosis, - - mild generalized edema Skin: No Rash or Ulcers Neurological: Alert and Oriented x 3 Nutrition: - - NPO Result Diagrams: 06/16/18 03:13 06/16/18 03:13 Additional Lab and Data: Lab Results 06/15/18 06/15/18 06/15/18 Range/Units 14:56 14:56 14:56 WBC 5.2 (3.5-10.8) 10^3/ul RBC 2.86 L (4.00-5.40) 10^6/ul Hgb 8.6 L (14.0-18.0) g/dl Hct 27 L (42-52) % MCV 93 (80-94) fL MCH 30 (27-31) pg MCHC 33 (31-36) g/dl RDW 18 H (10.5-15) % Plt Count 204 (150-450) 10^3/ul MPV 8.5 (7.4-10.4) fL Neut % (Auto) 65.1 (38-83) % Lymph % (Auto) 20.8 L (25-47) % [place] % (Auto) 6.6 (0-7) % Eos % (Auto) 7.3 H (0-6) % Baso % (Auto) 0.2 (0-2) % Absolute Neuts (auto) 3.4 (1.5-7.7) 10^3/ul Absolute Lymphs (auto) 1.1 (1.0-4.8) 10^3/ul Absolute Monos (auto) 0.3 (0-0.8) 10^3/ul Absolute Eos (auto) 0.4 (0-0.6) 10^3/ul Absolute Basos (auto) 0 (0-0.2) 10^3/ul Absolute Nucleated RBC 0 10^3/ul Nucleated RBC % 0.2 Sodium 142 (135-145) mmol/L Potassium 4.3 (3.5-5.0) mmol/L Chloride 101 (101-111) mmol/L Carbon Dioxide 27 (22-32) mmol/L Anion Gap 14 H (2-11) mmol/L BUN 50 H (6-24) mg/dL Creatinine 12.58 H (0.67-1.17) mg/dL Est GFR ( Amer) 5.4 (>60) Est GFR (Non-Af Amer) 4.5 (>60) BUN/Creatinine Ratio 4.0 L (8-20) Glucose 148 H (70-100) mg/dL Lactic Acid 1.1 (0.5-2.0) mmol/L Calcium 7.6 L (8.6-10.3) mg/dL Total Bilirubin 0.30 (0.2-1.0) mg/dL AST 12 L (13-39) U/L ALT 21 (7-52) U/L Alkaline Phosphatase 59 (34-104) U/L Troponin I 0.00 (<0.04) ng/mL C-Reactive Protein 14.48 H (<8.01) mg/L B-Natriuretic Peptide (<=100) pg/mL Total Protein 6.0 L (6.4-8.9) g/dL Albumin 3.3 (3.2-5.2) g/dL Globulin 2.7 (2-4) g/dL Albumin/Globulin Ratio 1.2 (1-3) Lipase 15 (11.0-82.0) U/L 06/15/18 Range/Units 14:56 WBC (3.5-10.8) 10^3/ul RBC (4.00-5.40) 10^6/ul Hgb (14.0-18.0) g/dl Hct (42-52) % MCV (80-94) fL MCH (27-31) pg MCHC (31-36) g/dl RDW (10.5-15) % Plt Count (150-450) 10^3/ul MPV (7.4-10.4) fL Neut % (Auto) (38-83) % Lymph % (Auto) (25-47) % [place] % (Auto) (0-7) % Eos % (Auto) (0-6) % Baso % (Auto) (0-2) % Absolute Neuts (auto) (1.5-7.7) 10^3/ul Absolute Lymphs (auto) (1.0-4.8) 10^3/ul Absolute Monos (auto) (0-0.8) 10^3/ul Absolute Eos (auto) (0-0.6) 10^3/ul Absolute Basos (auto) (0-0.2) 10^3/ul Absolute Nucleated RBC 10^3/ul Nucleated RBC % Sodium (135-145) mmol/L Potassium (3.5-5.0) mmol/L Chloride (101-111) mmol/L Carbon Dioxide (22-32) mmol/L Anion Gap (2-11) mmol/L BUN (6-24) mg/dL Creatinine (0.67-1.17) mg/dL Est GFR ( Amer) (>60) Est GFR (Non-Af Amer) (>60) BUN/Creatinine Ratio (8-20) Glucose (70-100) mg/dL Lactic Acid (0.5-2.0) mmol/L Calcium (8.6-10.3) mg/dL Total Bilirubin (0.2-1.0) mg/dL AST (13-39) U/L ALT (7-52) U/L Alkaline Phosphatase (34-104) U/L Troponin I (<0.04) ng/mL C-Reactive Protein (<8.01) mg/L B-Natriuretic Peptide 3318 H (<=100) pg/mL Total Protein (6.4-8.9) g/dL Albumin (3.2-5.2) g/dL Globulin (2-4) g/dL Albumin/Globulin Ratio (1-3) Lipase (11.0-82.0) U/L Diagnostic Imaging: Patient Name: MARQUIS FINNEGAN Medical Record#: [id number] Ordering Physician: Karina GAONA-Karma Acct.#: [id number] : 1980 Age: 37 Sex: M Location: [address] [place] [address]/TELEMETRY Exam Date: 06/17/18 0700 ADM Status: ADM IN Order Information: NM HEPATOBIL VISUAL SCAN-HIDA Accession Number: [id number] CPT: 03337 INDICATION: Right upper quadrant pain. Comparison: Comparison is made with a prior right upper quadrant ultrasound from June 15, 2018. Technique: The patient was given an intravenous injection of 6.4 mCi of technetium 99m Choletec intravenously and multiple images of the right upper quadrant were obtained. FINDINGS: There is also prompt visualization of the extrahepatic bile ducts and gallbladder. There is normal visualization of the small bowel. IMPRESSION: NEGATIVE EXAM NORMAL VISUALIZATION OF THE GALLBLADDER. <Electronically signed by Kei Quinteros MD in [place]> 06/17/18 113 Dictated By: Kei Quinteros MD Dictated Date/Time: 06/17/18 1139 Transcribed Date/Time: 06/17/18 1136 Copy to: EKG Data: ns no acute st t changes Assess/Plan/Problems-Billing Assessment: 37 yr old male with hx of esrd on hd for 5 yrs, anemia, hyperparathyroid s/p parathyroidectomy presented to ER first with abd pain later mixed with chest pain. abd US showed acaculous cholycystitis - intial wbc was neg. - Patient Problems (1) Abdominal pain Code(s): R10.9 - UNSPECIFIED ABDOMINAL PAIN SNOMED Code(s): 48631815 Comment: - surgical consult appreciated, HIDA scan recommended and completed today, see above - Per surgery, DC antibiotics today for negative HIDA, abdomen is not acute - Advance diet today (2) Chest pain Code(s): R07.9 - CHEST PAIN, UNSPECIFIED SNOMED Code(s): 57125384 Comment: - Likely 2/2 to ESRD/fluid overload - Atypical, trops negative - ECHO with "? vegetation" on report, and self reported history of "leaky valve " however, patient has no WBC count, no fever and pain has resolved? - Will discuss with cardiology in AM and see if this warrants ANABEL given arrhythmia yesterday (3) ESRD (end stage renal disease) Code(s): N18.6 - END STAGE RENAL DISEASE SNOMED Code(s): 16912448 Comment: - HD today (4) HTN (hypertension) Code(s): I10 - ESSENTIAL (PRIMARY) HYPERTENSION SNOMED Code(s): 38524052 Comment: - Stable on home meds (5) Marijuana dependence Code(s): F12.20 - CANNABIS DEPENDENCE, UNCOMPLICATED SNOMED Code(s): 78879450 Comment: - Stable, supportive care Status and Disposition: Inpatient, dispo pending
[2018-06-17] MEDS ORDERED: Heparin DIALYSIS ONLY(*) 1,000 UNITS/ML VIAL DIALYSIS ONE (18:00)
[2018-06-17] MEDS ORDERED: Epoetin Alfa (NF) 10,000 UNITS/ML VIAL - ten thousand IV ONE (18:00)
[2018-06-18 06:50] LABS: ABS Basophils 0.1 10^3/ul (0-0.2); ABS Eosinophils 0.4 10^3/ul (0-0.6); ABS Lymphocytes 1.1 10^3/ul (1.0-4.8); ABS Monocytes 0.5 10^3/ul (0-0.8); ABS Neutrophils 2.9 10^3/ul (1.5-7.7); ABS Nucleated RBC 0 10^3/ul; Hematocrit 26 % (42-52); Hemoglobin 8.7 g/dl (14.0-18.0); Lymphocyte % 21.8 % (25-47); Mean Corpuscular HGB Conc 34 g/dl (31-36); Mean Corpuscular Hemoglobin 30 pg (27-31); Mean Corpuscular Volume 91 fL (80-94); Mean Platelet Volume 8.5 fL (7.4-10.4); Nucleated Red Blood Cells % 0.6; Platelet Count 173 10^3/ul (150-450); Red Blood Count 2.87 10^6/ul (4.00-5.40); Red Cell Distribution Width 18 % (10.5-15); White Blood Count 4.9 10^3/ul (3.5-10.8)
[2018-06-18 07:01] LABS: Calcium 8.1 mg/dL (8.6-10.3); EGFR Non-African American 4.1 (>60); Potassium 4.5 mmol/L (3.5-5.0)
[2018-06-18] MEDS: Benzonatate CAP* 100 MG PO SCH ×3 (08:15→20:47)
[2018-06-18] MEDS: Aspirin EC TAB* 81 MG TAB.EC PO SCH (08:15)
--- NOTE | 2018-06-18 14:21 | PN ---
Subjective Date of Service: 06/18/18 Interval History: Pt seen and examined. Meds and labs reviewed. CC: Pt complained of CP this AM 5/10. ROS: Denied KRISHNA/dizziness, F/C, N/V, CP, SOB, increased cough, sputum production , abd pain, diarrhea, constipation, dysuria, myalgias, arthralgias, throat pain , and new skin lesions. The rest of the 14 point ROS are unremarkable. PHYSICAL EXAM: GEN APPEARANCE: Awake, not in acute distress, obese HEENT: NC/AT, PERRLA, moist oral mucosa, (-) throat erythema NECK: Soft, supple, (-) cervical LAD, (-)JVD HEART: S1S2 WNL, RRR, No MRG CHEST: CTA, BL, GAE, No W/R/R ABD: Soft, ND/NT, NABS 4x Q EXT: No C/C/E SKIN: Warm to touch PSYCH: No active psychosis, hallucinations, depression, SI/HI Family History: Findings - brother + dm Social History: Findings - quit cig 3 yrs quit etoh 5 yrs ago still uses marijuana Past Medical History: Findings - as above Objective Active Medications: Albuterol/Ipratropium (Duoneb (Albuterol 2.5 Mg/Ipratropium 0.5 Mg)) 1 neb INH Q6H PRN PRN Reason: SOB/WHEEZING Aspirin (Aspirin Ec Tab*) 81 mg PO DAILY [facility] Last Admin: 06/18/18 08:15 Dose: 81 mg Benzonatate (Tessalon Cap*) 100 mg PO TID [facility] Last Admin: 06/18/18 13:40 Dose: 100 mg Ondansetron HCl (Zofran Inj*) 4 mg IV Q6H PRN PRN Reason: NAUSEA Last Admin: 06/16/18 07:30 Dose: 4 mg Tramadol HCl (Ultram*) 25 mg PO Q8H PRN PRN Reason: PAIN Vital Signs - 8 hr 06/18/18 06/18/18 06/18/18 07:29 08:05 08:49 Temperature 97.9 F 97.9 F Pulse Rate 79 77 Respiratory 19 16 16 Rate Blood Pressure 129/51 122/52 (mmHg) O2 Sat by Pulse 99 100 Oximetry 06/18/18 11:18 Temperature 99.0 F Pulse Rate 78 Respiratory 18 Rate Blood Pressure 115/41 (mmHg) O2 Sat by Pulse 100 Oximetry Oxygen Devices in Use Now: None Result Diagrams: 06/18/18 06:28 06/18/18 06:28 Additional Lab and Data: Lab Results 06/15/18 06/15/18 06/15/18 Range/Units 14:56 14:56 14:56 WBC 5.2 (3.5-10.8) 10^3/ul RBC 2.86 L (4.00-5.40) 10^6/ul Hgb 8.6 L (14.0-18.0) g/dl Hct 27 L (42-52) % MCV 93 (80-94) fL MCH 30 (27-31) pg MCHC 33 (31-36) g/dl RDW 18 H (10.5-15) % Plt Count 204 (150-450) 10^3/ul MPV 8.5 (7.4-10.4) fL Neut % (Auto) 65.1 (38-83) % Lymph % (Auto) 20.8 L (25-47) % Mccreary % (Auto) 6.6 (0-7) % Eos % (Auto) 7.3 H (0-6) % Baso % (Auto) 0.2 (0-2) % Absolute Neuts (auto) 3.4 (1.5-7.7) 10^3/ul Absolute Lymphs (auto) 1.1 (1.0-4.8) 10^3/ul Absolute Monos (auto) 0.3 (0-0.8) 10^3/ul Absolute Eos (auto) 0.4 (0-0.6) 10^3/ul Absolute Basos (auto) 0 (0-0.2) 10^3/ul Absolute Nucleated RBC 0 10^3/ul Nucleated RBC % 0.2 Sodium 142 (135-145) mmol/L Potassium 4.3 (3.5-5.0) mmol/L Chloride 101 (101-111) mmol/L Carbon Dioxide 27 (22-32) mmol/L Anion Gap 14 H (2-11) mmol/L BUN 50 H (6-24) mg/dL Creatinine 12.58 H (0.67-1.17) mg/dL Est GFR ( Amer) 5.4 (>60) Est GFR (Non-Af Amer) 4.5 (>60) BUN/Creatinine Ratio 4.0 L (8-20) Glucose 148 H (70-100) mg/dL Lactic Acid 1.1 (0.5-2.0) mmol/L Calcium 7.6 L (8.6-10.3) mg/dL Total Bilirubin 0.30 (0.2-1.0) mg/dL AST 12 L (13-39) U/L ALT 21 (7-52) U/L Alkaline Phosphatase 59 (34-104) U/L Troponin I 0.00 (<0.04) ng/mL C-Reactive Protein 14.48 H (<8.01) mg/L B-Natriuretic Peptide (<=100) pg/mL Total Protein 6.0 L (6.4-8.9) g/dL Albumin 3.3 (3.2-5.2) g/dL Globulin 2.7 (2-4) g/dL Albumin/Globulin Ratio 1.2 (1-3) Lipase 15 (11.0-82.0) U/L 06/15/18 Range/Units 14:56 WBC (3.5-10.8) 10^3/ul RBC (4.00-5.40) 10^6/ul Hgb (14.0-18.0) g/dl Hct (42-52) % MCV (80-94) fL MCH (27-31) pg MCHC (31-36) g/dl RDW (10.5-15) % Plt Count (150-450) 10^3/ul MPV (7.4-10.4) fL Neut % (Auto) (38-83) % Lymph % (Auto) (25-47) % Mccreary % (Auto) (0-7) % Eos % (Auto) (0-6) % Baso % (Auto) (0-2) % Absolute Neuts (auto) (1.5-7.7) 10^3/ul Absolute Lymphs (auto) (1.0-4.8) 10^3/ul Absolute Monos (auto) (0-0.8) 10^3/ul Absolute Eos (auto) (0-0.6) 10^3/ul Absolute Basos (auto) (0-0.2) 10^3/ul Absolute Nucleated RBC 10^3/ul Nucleated RBC % Sodium (135-145) mmol/L Potassium (3.5-5.0) mmol/L Chloride (101-111) mmol/L Carbon Dioxide (22-32) mmol/L Anion Gap (2-11) mmol/L BUN (6-24) mg/dL Creatinine (0.67-1.17) mg/dL Est GFR ( Amer) (>60) Est GFR (Non-Af Amer) (>60) BUN/Creatinine Ratio (8-20) Glucose (70-100) mg/dL Lactic Acid (0.5-2.0) mmol/L Calcium (8.6-10.3) mg/dL Total Bilirubin (0.2-1.0) mg/dL AST (13-39) U/L ALT (7-52) U/L Alkaline Phosphatase (34-104) U/L Troponin I (<0.04) ng/mL C-Reactive Protein (<8.01) mg/L B-Natriuretic Peptide 3318 H (<=100) pg/mL Total Protein (6.4-8.9) g/dL Albumin (3.2-5.2) g/dL Globulin (2-4) g/dL Albumin/Globulin Ratio (1-3) Lipase (11.0-82.0) U/L Diagnostic Imaging: Patient Name: MARQUIS FINNEGAN Medical Record#: [id number] [facility]ing Phys[facility] [id number] : 1980 Age: 37 Sex: M Location: [address] [place] [address]/[place]LEMET[place] Exam Date: 06/17/18 0700 ADM Status: ADM IN Order Information: NM HEPATOBIL VISUAL SCAN-HIDA Accession Number: [id number] CPT: 12125 INDICATION: Right upper quadrant pain. Comparison: Comparison is made with a prior right upper quadrant ultrasound from June 15, 2018. Technique: The patient was given an intravenous injection of 6.4 mCi of technetium 99m Choletec intravenously and multiple images of the right upper quadrant were obtained. FINDINGS: There is also prompt visualization of the extrahepatic bile ducts and gallbladder. There is normal visualization of the small bowel. IMPRESSION: NEGATIVE EXAM NORMAL VISUALIZATION OF THE GALLBLADDER. <Electronically signed by Kei Quinteros MD in OV> 06/17/18 1139 Dictated By: Kei Quinteros MD Dictated Date/Time: 06/17/18 1139 Transcribed Date/Time: 06/17/18 1136 Copy to: EKG Data: ns no acute st t changes Assess/Plan/Problems-Billing Assessment: 37 yr old male with hx of esrd on hd for 5 yrs, anemia, hyperparathyroid s/p parathyroidectomy presented to ER first with abd pain later mixed with chest pain. abd US showed acaculous cholycystitis - intial wbc was neg. - Patient Problems (1) Abdominal pain Current Visit: Yes Status: Acute Code(s): R10.9 - UNSPECIFIED ABDOMINAL PAIN SNOMED Code(s): 07198541 Comment: -HIDA scan (-) -Continue low sodium diet (2) Chest pain Current Visit: Yes Status: Acute Code(s): R07.9 - CHEST PAIN, UNSPECIFIED SNOMED Code(s): 48930473 Comment: -Likely 2/2 to ESRD/fluid overload -Atypical, trops negative -ECHO with "? vegetation" on report, and self reported history of "leaky valve" however, patient has no WBC count, no fever and pain has resolved? -Now off antibiotics, however, given concern for untreated BE, requested labs from [facility]---unfortunately only H&P and other radiologic imaging available-- -asked RN to obtain D/C summary, progress notes of stay to determine pts sister s claim that she was called about pt having bacterial endocarditis. H&P states , BE on 2016---unclear if he had a new diagnosis of BE this year and unclear whether it had been treated if he did -Will re-trend troponins and possible bronchitis on CXR -D/W Dr. Santos---will await his input if ANABEL is necessary as we await further details from his records at [facility] (3) ESRD (end stage renal disease) Current Visit: Yes Status: Acute Code(s): N18.6 - END STAGE RENAL DISEASE SNOMED Code(s): 51854570 Comment: -HD yesterday -Scheduled MW&F for HD (4) HTN (hypertension) Current Visit: Yes Status: Acute Code(s): I10 - ESSENTIAL (PRIMARY) HYPERTENSION SNOMED Code(s): 90411488 Comment: - Stable on home meds (5) Marijuana dependence Current Visit: Yes Status: Acute Code(s): F12.20 - CANNABIS DEPENDENCE, UNCOMPLICATED SNOMED Code(s): 32594627 Comment: - Stable, supportive care Status and Disposition: -For PT eval -As above
[2018-06-18 21:23] LABS: EGFR African American 4.3 (>60); EGFR Non-African American 3.6 (>60); Magnesium 2.5 mg/dL (1.9-2.7); Potassium 4.2 mmol/L (3.5-5.0)
--- NOTE | 2018-06-18 22:03 | CONS ---
CARDIOLOGY CONSULTATION: DATE OF CONSULT: 06/18/18 REFERRING PHYSICIAN: Nam Tillman MD REASON FOR CARDIOLOGY CONSULTATION: Chest pain with severe aortic insufficiency and concern for endocarditis. I was kindly asked to see this gentleman with a history of end-stage renal disease and severe aortic insufficiency, admitted to the hospital with abdominal pain that appears attributable to constipation and he states he feels much better since his constipation has been addressed. He really describes only vague chest discomfort and it sounds like he has some shortness of breath with walking up hills which does seem to be progressive more recently. He has been diagnosed with severe aortic insufficiency in the past including at least since 05/10/17 and has a diagnosis of atypical chest pain. The patient states that his internal medicine physician previously had told him while he has severe valve leakage, he did not require surgery. PAST MEDICAL HISTORY: Includes end-stage renal disease, on hemodialysis; severe aortic insufficiency at least since 2016 if not prior that has been followed; anemia; hyperparathyroidism; hypertension. PAST SURGICAL HISTORY: Includes AV fistula and total thyroidectomy. OUTPATIENT MEDICATIONS: Listed as unknown. CURRENT MEDICATIONS: 1. Atrovent. 2. Albuterol. 3. Enteric coated aspirin 81 mg once a day. 4. Ultram p.r.n. 5. Zofran p.r.n. ALLERGIES TO MEDICATIONS: MORPHINE which the patient states caused him to have mental status changes and specifically states that he took all his clothes off while under the influence of morphine and it sounds like from his description that he was delirious. He denies shrimp or seafood allergies. FAMILY HISTORY: His mother of cardiac disease and cancer, and the patient had subsequent anger issues over her passage. Also, his mother had a history of stroke. His father and brother have a history of diabetes. SOCIAL HISTORY: He does not smoke cigarettes, abuse alcohol, does not use illicit drugs. He has graduated 11th grade of high school. 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 He is single and lives at a house at the [employer]. He previously resided in [place] but has recently moved to [place] and it sounds that his brother lives in this town. He does try to do some walking for exercise. REVIEW OF SYSTEMS: The patient denies a personal history of stroke, TIA, cancer , vomiting up blood, coughing up blood, bright red blood per rectum, bleeding stomach ulcers, renal calculi and it turns out that he does not have cholelithiasis and acalculous cholecystitis has been ruled out. He denies asthma , emphysema, pneumonia, tuberculosis, sleep apnea, home oxygen use, diabetes. He does have hypertension. He denies prior PR, congestive heart failure, cardiac surgeries. He does have a history of heart murmur. He denies palpitations. He has a history of anger issues and sees a therapist for that. He denies lupus, psoriasis, seizures, Parkinson disease, myasthenia gravis, liver disorders. He does have renal failure and has not been on dialysis for approximately 7 years he estimates. He denies peripheral edema or heartburn symptoms. All other review of systems have been negative x14 except as described above. PHYSICAL EXAM: Height 5 feet 9 inches, weight 248 pounds. Temperature 97.9 degrees Fahrenheit, blood pressure 122/52, pulse 77, O2 saturation 100%. On general exam, he is a pleasant gentleman, in no acute distress. HEENT shows the cranium is normocephalic and atraumatic. He has dry mucosal membranes. Neck veins are not distended. There are no carotid bruits. Visible skin warm and perfused. Affect appropriate. He appears oriented. No significant kyphoscoliosis on back exam. Lungs are clear to auscultation. No wheezes, no rales. Cardiac Exam: S1, S2. Regular rate. Soft diastolic murmur heard with some radiation towards his left neck. No rub, no gallop. PMI is nondisplaced. Abdomen is soft and nondistended, appears benign. Extremities: Without significant edema. Pulses appear grossly intact. DIAGNOSTIC STUDIES/LAB DATA: The patient completed a 12-lead EKG on 06/18/18 at 8:45 a.m. which shows sinus rhythm with diffuse T-wave changes anterolaterally and inferiorly, may be related to LVH. The patient walked on an exercise treadmill, 06/16/18. He exercised for 1 minute and 20 seconds and was limited by shortness of breath and fatigue, but no new EKG changes or chest pain noted, but he was unable to exceed his target heart rate. Echocardiogram completed 06/15/18 at [facility] shows mildly dilated left ventricular size at 5.5 cm with normal left ventricular ejection fraction of 50% to 55% with severe left atrial dilatation, severe aortic insufficiency, moderate tricuspid regurgitation, severe pulmonary hypertension, moderate mitral regurgitation mild to moderate pulmonic insufficiency. There is a mass commented on on the aortic valve which appears most consistent with Lambl's excrescence with perhaps some lax fibrous tissue (which I have reviewed myself). IMPRESSION: Mr. Govea is a 37-year-old gentleman with a history of severe aortic insufficiency known since at least April 2017, which has been watched by his prior internal medicine physician. The patient confirms that he has now moved to [place]. The patient was admitted with abdominal pain, which appears related to constipation and that is now resolved. It does not appear that he has any active cardiac issues, especially as his last echocardiogram review shows only Lambl's excrescence noted on his echocardiogram. Neither clinically nor by echocardiogram does he have definitive evidence of endocarditis, and I do not believe his atypical chest pain symptoms are a result of his severe aortic insufficiency as AR generally does not usually cause chest pain. RECOMMENDATIONS: From a cardiac standpoint, the patient appears fairly stable and I feel like he can be discharged to home. Again, as the patient has moved to [place] from [place], [place], I am happy to follow him locally and I have given the patient my business card. I would like to see him in 2 to 3 months. I would recommend he return to emergency room if he becomes abruptly short of breath. We will need to continue to closely monitor his severe aortic insufficiency which I can make arrangements for in the future. Also at that time, when the patient follows up with myself , we can consider further ischemic evaluation with a cardiac chemical nuclear stress scan given the equivocal exercise ECG done recently and cardiac risk factors of hypertension and family history of heart disease, so would consider cardiac chemical nuclear stress as an outpatient which I can reassess at his follow up visit. Other managament as per Dr. Tillman of service with whom I have discussed the patient's case. The patient is also encouraged to establish care with a local primary care physician. Dear Dr. Tillman, many thanks for this kind cardiac consultation opportunity. Please do not hesitate to contact me if you have any questions or concerns regarding the patient's cardiovascular consultative care. [id number]/[facility] #: [id number] CHRISS
[2018-06-19 05:53] LABS: Hematocrit 26 % (42-52); Hemoglobin 8.4 g/dl (14.0-18.0); Mean Corpuscular HGB Conc 33 g/dl (31-36); Mean Corpuscular Hemoglobin 30 pg (27-31); Mean Corpuscular Volume 91 fL (80-94); Mean Platelet Volume 8.2 fL (7.4-10.4); Platelet Count 168 10^3/ul (150-450); Red Blood Count 2.81 10^6/ul (4.00-5.40); Red Cell Distribution Width 18 % (10.5-15); White Blood Count 4.8 10^3/ul (3.5-10.8)
[2018-06-19 06:14] LABS: Albumin 3.2 g/dL (3.2-5.2); Albumin/Globulin Ratio 1.2 (1-3); Calcium 7.5 mg/dL (8.6-10.3); EGFR Non-African American 3.3 (>60); Globulin 2.7 g/dL (2-4); Magnesium 2.5 mg/dL (1.9-2.7); Potassium 4.2 mmol/L (3.5-5.0); Total Bilirubin 0.3 mg/dL (0.2-1.0); Total Protein 5.9 g/dL (6.4-8.9)
[2018-06-19] MEDS: Benzonatate CAP* 100 MG PO SCH ×3 (08:25→20:50)
[2018-06-19] MEDS: Aspirin EC TAB* 81 MG TAB.EC PO SCH (08:25)
[2018-06-19] MEDS ORDERED: Calcium Gluconate INJ* 3 GM in NS 0.9% 250 ML* 250 ML IV ONE (09:29)
[2018-06-19 09:38] LABS: C Reactive Protein 45.26 mg/L (<8.01)
[2018-06-19] MEDS ORDERED: NS 0.9% 250 ML* 250 ML ONE (10:40)
--- NOTE | 2018-06-19 15:28 | CONS ---
CONSULTATION REPORT: DATE OF CONSULT: 06/19/18. REQUESTING PHYSICIAN: Dr. Tillman. CONSULTING SERVICE: Infectious Diseases. REASON FOR CONSULT: Question of endocarditis. IMPRESSION: 1. Transthoracic echocardiogram from 06/16/18 shows aortic regurgitation, which is severe, mildly thickened aortic valve leaflets. No aortic stenosis. 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 The question is raised of infective endocarditis. He has had no fever or chills, sweats, anorexia or weight loss to suggest a stomach illness. CRP was 15 on admission. Taken together, he has low pre-test probability for infective endocarditis. The lesion seen by Dr. Ruiz was most consistent with a Lambl's excrescence. Taken together, his post-test probability for infective endocarditis remains low and I do not think he has it. 2. Morbid obesity. 3. Endstage renal disease, on hemodialysis via left upper extremity fistula, which has been complicated in the past by infection. 4. Infective endocarditis, 2016. 5. History of nephrectomy. RECOMMENDATIONS: Continue all of his antibiotics. He has a set of blood cultures sent yesterday. We will follow and we will trend his C-reactive protein. If fevers, chills, sweats, or other systemic symptoms develop, we will reassess question of infective endocarditis. HISTORY OF PRESENT ILLNESS: This is a 37-year-old man with endstage renal disease, on hemodialysis, admitted with abdominal pain which has resolved after treatment for constipation. The workup had included an ultrasound of his gallbladder which showed some wall thickening that was evaluated and found to be unremarkable. He had no leukocytosis when he was admitted and his C- reactive protein was 14. He has had no fevers here. He stated his appetite has been good. He has had no fevers, chills, or sweats over the past few weeks. He was treated for infective endocarditis in 2016 and that is confirmed by some other records from [facility]. He had recently moved here from [place]. He follows with Dr. Saeed now for hemodialysis. His left arm fistula has been infected in the past, but working fine now and without any pain or swelling in that site that he has noticed. He has no other prosthetic material present. PAST MEDICAL HISTORY: 1. Endstage renal disease, now on hemodialysis. 2. Morbid obesity. 3. Infective endocarditis in 2016. 4. Severe aortic insufficiency. 5. Hypertension. 6. Status post thyroidectomy. MEDICATIONS: 1. Albuterol. 2. Aspirin. 3. Zofran. 4. Tramadol. ALLERGIES: MORPHINE. SOCIAL HISTORY: He lives in [place], moved here from [place]. He is a nonsmoker. FAMILY HISTORY: No recurrent infections or tuberculosis. REVIEW OF SYSTEMS: All negative except as noted above to 14-point of review of systems. PHYSICAL EXAM: Vital Signs: Temperature of 36, heart rate 70, respiratory rate 14, blood pressure 115/42, oxygen saturation 100% on room air. In general , he is awake, not in distress. Neurologic: He is oriented x3, follows all commands. HEENT: There is no conjunctival hemorrhage. Oropharynx without lesions. Neck is supple without mass. Heart has regular rate and rhythm with a 3/6 systolic murmur. Lungs: Clear to auscultation bilaterally. Abdomen: Soft , nontender, nondistended. Bowel sounds present. Skin: There is no rash or splinter hemorrhage. Musculoskeletal: There is no spine tenderness to palpation. There is a left upper extremity fistula with a bruit. LABORATORY DATA: White blood cell count 4.8, hemoglobin 8, platelets 168, creatinine 16, potassium 4. Please see impressions and recommendations outlined above, which I have discussed with Dr. Tillman. Thanks for asking me to see Mr. Wraren in consultation. [id number]/[facility] #: [id number] MTDD
[2018-06-19] MEDS ORDERED: Heparin DIALYSIS ONLY(*) 1,000 UNITS/ML VIAL DIALYSIS ONE (18:00)
[2018-06-19] MEDS ORDERED: Epoetin Alfa (NF) 10,000 UNITS/ML VIAL - ten thousand IV ONE (18:00)
--- NOTE | 2018-06-19 18:11 | PN ---
Subjective Date of Service: 06/19/18 Interval History: Pt seen and examined. Meds and labs reviewed. CC: N/A ROS: Denied KRISHNA/dizziness, F/C, N/V, CP, SOB, increased cough, sputum production , abd pain, diarrhea, constipation, dysuria, myalgias, arthralgias, throat pain , and new skin lesions. The rest of the 14 point ROS are unremarkable. PHYSICAL EXAM: GEN APPEARANCE: Awake, not in acute distress, obese HEENT: NC/AT, PERRLA, moist oral mucosa, (-) throat erythema NECK: Soft, supple, (-) cervical LAD, (-)JVD HEART: S1S2 WNL, RRR, No MRG CHEST: CTA, BL, GAE, No W/R/R ABD: Soft, ND/NT, NABS 4x Q EXT: No C/C/E SKIN: Warm to touch PSYCH: No active psychosis, hallucinations, depression, SI/HI Family History: Findings - brother + dm Social History: Findings - quit cig 3 yrs quit etoh 5 yrs ago still uses marijuana Past Medical History: Findings - as above Objective Active Medications: Albuterol/Ipratropium (Duoneb (Albuterol 2.5 Mg/Ipratropium 0.5 Mg)) 1 neb INH Q6H PRN PRN Reason: SOB/WHEEZING Aspirin (Aspirin Ec Tab*) 81 mg PO DAILY [facility] Last Admin: 06/19/18 08:25 Dose: 81 mg Benzonatate (Tessalon Cap*) 100 mg PO TID [facility] Last Admin: 06/19/18 15:46 Dose: 100 mg Calcium Acetate (Phoslo Cap*) 667 mg PO AC [facility] Ondansetron HCl (Zofran Inj*) 4 mg IV Q6H PRN PRN Reason: NAUSEA Last Admin: 06/16/18 07:30 Dose: 4 mg Tramadol HCl (Ultram*) 25 mg PO Q8H PRN PRN Reason: PAIN Vital Signs - 8 hr 06/19/18 06/19/18 11:27 15:18 Temperature 97.4 F 97 F Pulse Rate 77 79 Respiratory 16 Rate Blood Pressure 132/42 143/56 (mmHg) O2 Sat by Pulse 100 100 Oximetry Oxygen Devices in Use Now: None Result Diagrams: 06/19/18 05:40 06/19/18 05:40 Additional Lab and Data: Lab Results 06/15/18 06/15/18 06/15/18 Range/Units 14:56 14:56 14:56 WBC 5.2 (3.5-10.8) 10^3/ul RBC 2.86 L (4.00-5.40) 10^6/ul Hgb 8.6 L (14.0-18.0) g/dl Hct 27 L (42-52) % MCV 93 (80-94) fL MCH 30 (27-31) pg MCHC 33 (31-36) g/dl RDW 18 H (10.5-15) % Plt Count 204 (150-450) 10^3/ul MPV 8.5 (7.4-10.4) fL Neut % (Auto) 65.1 (38-83) % Lymph % (Auto) 20.8 L (25-47) % [place] % (Auto) 6.6 (0-7) % Eos % (Auto) 7.3 H (0-6) % Baso % (Auto) 0.2 (0-2) % Absolute Neuts (auto) 3.4 (1.5-7.7) 10^3/ul Absolute Lymphs (auto) 1.1 (1.0-4.8) 10^3/ul Absolute Monos (auto) 0.3 (0-0.8) 10^3/ul Absolute Eos (auto) 0.4 (0-0.6) 10^3/ul Absolute Basos (auto) 0 (0-0.2) 10^3/ul Absolute Nucleated RBC 0 10^3/ul Nucleated RBC % 0.2 Sodium 142 (135-145) mmol/L Potassium 4.3 (3.5-5.0) mmol/L Chloride 101 (101-111) mmol/L Carbon Dioxide 27 (22-32) mmol/L Anion Gap 14 H (2-11) mmol/L BUN 50 H (6-24) mg/dL Creatinine 12.58 H (0.67-1.17) mg/dL Est GFR ( Amer) 5.4 (>60) Est GFR (Non-Af Amer) 4.5 (>60) BUN/Creatinine Ratio 4.0 L (8-20) Glucose 148 H (70-100) mg/dL Lactic Acid 1.1 (0.5-2.0) mmol/L Calcium 7.6 L (8.6-10.3) mg/dL Total Bilirubin 0.30 (0.2-1.0) mg/dL AST 12 L (13-39) U/L ALT 21 (7-52) U/L Alkaline Phosphatase 59 (34-104) U/L Troponin I 0.00 (<0.04) ng/mL C-Reactive Protein 14.48 H (<8.01) mg/L B-Natriuretic Peptide (<=100) pg/mL Total Protein 6.0 L (6.4-8.9) g/dL Albumin 3.3 (3.2-5.2) g/dL Globulin 2.7 (2-4) g/dL Albumin/Globulin Ratio 1.2 (1-3) Lipase 15 (11.0-82.0) U/L 06/15/18 Range/Units 14:56 WBC (3.5-10.8) 10^3/ul RBC (4.00-5.40) 10^6/ul Hgb (14.0-18.0) g/dl Hct (42-52) % MCV (80-94) fL MCH (27-31) pg MCHC (31-36) g/dl RDW (10.5-15) % Plt Count (150-450) 10^3/ul MPV (7.4-10.4) fL Neut % (Auto) (38-83) % Lymph % (Auto) (25-47) % [place] % (Auto) (0-7) % Eos % (Auto) (0-6) % Baso % (Auto) (0-2) % Absolute Neuts (auto) (1.5-7.7) 10^3/ul Absolute Lymphs (auto) (1.0-4.8) 10^3/ul Absolute Monos (auto) (0-0.8) 10^3/ul Absolute Eos (auto) (0-0.6) 10^3/ul Absolute Basos (auto) (0-0.2) 10^3/ul Absolute Nucleated RBC 10^3/ul Nucleated RBC % Sodium (135-145) mmol/L Potassium (3.5-5.0) mmol/L Chloride (101-111) mmol/L Carbon Dioxide (22-32) mmol/L Anion Gap (2-11) mmol/L BUN (6-24) mg/dL Creatinine (0.67-1.17) mg/dL Est GFR ( Amer) (>60) Est GFR (Non-Af Amer) (>60) BUN/Creatinine Ratio (8-20) Glucose (70-100) mg/dL Lactic Acid (0.5-2.0) mmol/L Calcium (8.6-10.3) mg/dL Total Bilirubin (0.2-1.0) mg/dL AST (13-39) U/L ALT (7-52) U/L Alkaline Phosphatase (34-104) U/L Troponin I (<0.04) ng/mL C-Reactive Protein (<8.01) mg/L B-Natriuretic Peptide 3318 H (<=100) pg/mL Total Protein (6.4-8.9) g/dL Albumin (3.2-5.2) g/dL Globulin (2-4) g/dL Albumin/Globulin Ratio (1-3) Lipase (11.0-82.0) U/L Diagnostic Imaging: Patient Name: MARQUIS FINNEGAN Medical Record#: [id number] Ordering Physician: Karina THAOP-Karma Acct.#: [id number] : 1980 Age: 37 Sex: M Location: [address] [place] [address]/TELEMETRY Exam Date: 06/17/18 0700 ADM Status: ADM IN Order Information: [facility] Accession Number: [id number] CPT: 85149 INDICATION: Right upper quadrant pain. Comparison: Comparison is made with a prior right upper quadrant ultrasound from June 15, 2018. Technique: The patient was given an intravenous injection of 6.4 mCi of technetium 99m Choletec intravenously and multiple images of the right upper quadrant were obtained. FINDINGS: There is also prompt visualization of the extrahepatic bile ducts and gallbladder. There is normal visualization of the small bowel. IMPRESSION: NEGATIVE EXAM NORMAL VISUALIZATION OF THE GALLBLADDER. <Electronically signed by Kei Quinteros MD in OV> 06/17/18 113 Dictated By: Kei Quinteros MD Dictated Date/Time: 06/17/18 113 Transcribed Date/Time: 06/17/18 113 Copy to: EKG Data: ns no acute st t changes Assess/Plan/Problems-Billing Assessment: 37 yr old male with hx of esrd on hd for 5 yrs, anemia, hyperparathyroid s/p parathyroidectomy presented to ER first with abd pain later mixed with chest pain. abd US showed acaculous cholycystitis - intial wbc was neg. - Patient Problems (1) Abdominal pain Current Visit: Yes Status: Acute Code(s): R10.9 - UNSPECIFIED ABDOMINAL PAIN SNOMED Code(s): 39796572 Comment: -Resolved; likely due to constipation -HIDA scan (-) -Continue low sodium diet (2) Chest pain Current Visit: Yes Status: Acute Code(s): R07.9 - CHEST PAIN, UNSPECIFIED SNOMED Code(s): 00003661 Comment: -Likely non-cardiac per Dr. 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 Ruiz and Danielle (3) ESRD (end stage renal disease) Current Visit: Yes Status: Acute Code(s): N18.6 - END STAGE RENAL DISEASE SNOMED Code(s): 60557001 Comment: -HD tpday -Scheduled MW&F for HD (4) HTN (hypertension) Current Visit: Yes Status: Acute Code(s): I10 - ESSENTIAL (PRIMARY) HYPERTENSION SNOMED Code(s): 39584833 Comment: - Stable on home meds (5) Marijuana dependence Current Visit: Yes Status: Acute Code(s): F12.20 - CANNABIS DEPENDENCE, UNCOMPLICATED SNOMED Code(s): 22285440 Comment: - Stable, supportive care Status and Disposition: -Unfortunately pt declined to be D/Cd late post dialysis and will defer -For D/C in AM
[2018-06-19] MEDS: Calcium Acetate CAP* 667 MG PO SCH (20:58)
--- NOTE | 2018-06-20 03:29 | DS ---
CC: Dr. Laureen Singh; Dr. Barney Duran; Dr. Ricardo Moya; Dr. Santos; Dr. Ruiz DISCHARGE SUMMARY: DATE OF ADMISSION: DATE OF DISCHARGE: DISCHARGE DIAGNOSES: 1. Abdominal pain likely secondary to constipation, resolved. 2. Chest pain, unlikely cardiac in origin. 3. Severe aortic regurgitation with evidence of severe pulmonary hypertension and moderate pulmonic regurgitation on 2D echocardiogram with an ejection fraction of 50% to 55%. Echocardiogram done on 06/16/18. 4. Lambl excrescence. DISCHARGE MEDICATIONS: Are as follows: 1. Aspirin 81 mg p.o. daily. 2. Benzonatate 100 mg p.o. t.i.d. 3. Tramadol 25 mg p.o. q.8 p.r.n. 15 tabs dispensed with 0 refills. 4. Tylenol 650 mg p.o. q.6 hours p.r.n. 5. Calcium acetate 667 mg p.o. t.i.d. with meals. 6. Cholecalciferol 1000 units p.o. daily. 7. Colace to start when Senna Plus has ran out 200 mg p.o. daily. 8. Polyethylene glycol 17 g p.o. q.48 hours p.r.n. 9. Senna Plus p.o. daily 10 tabs dispensed with 0 refills. HISTORY OF PRESENT ILLNESS AND HOSPITAL COURSE: The patient is a 37-year-old -[place] gentleman, who is a poor historian who has a history of ESRD, on hemodialysis; severe aortic insufficiency since 2017 as well as hyperparathyroidism likely secondary to chronic kidney disease who presented to the ER with abdominal pain that he mentions has been going on for 1 week. He described it as a sharp type, intermittent pain, which lasted about 10 to 20 minutes in intensity around 6- 8/10 on the pain scale. On admission, he had a gallbladder ultrasound done which suggests a small right pleural effusion with mild nonspecific diffuse gallbladder wall thickening with a possibility of acalculous cholecystitis and severe atrophic right kidney. Given the possibility of acalculous cholecystitis, he was placed on antibiotics and Surgery was consulted who then recommended a HIDA scan which did not reveal any abnormality in the visualization of the gallbladder and hence negative. Furthermore upon evaluation, the cause of his abdominal pain was likely due to constipation when he was given some laxatives and he was able to move his bowels , his abdominal pain resolved. He did complain of some intermittent chest pain that was thought to be noncardiac. He was ruled out for ACS during this hospitalization stay with troponins x7 being all negative. He also had a 2D echocardiogram done as described above which revealed severe aortic regurgitation as well as presence of a mobile mass on the aortic valve and comparison of reports was made by Dr. Ruiz prior to his discharge who mentioned that this is likely Lambl excrescence. He was also referred to Dr. Santos who agreed with the above plan. Cultures were drawn in the interim to completely rule out bacterial endocarditis. However, he has not had any fevers , chills during this hospitalization stay. Of note, his sister, who I spoke to on the phone, mentions that she was previously called a few months back that the patient has "bacterial endocarditis;" however, documentation from [facility] during his last hospitalization stay that was sent to us twice did not contain any progress notes nor discharge summary. Given above evaluation, this was discussed with both Dr. Santos and Dr. Ruiz who mentioned once more that the patient does not have bacterial endocarditis and likely due to Lambl excrescence and hence he will not be discharged on antibiotics. He does have a history of hyperparathyroidism which I suspect is a secondary hyperparathyroidism given his renal failure and given his low calcium as well which were corrected prior to his discharge. He will be placed on PhosLo, which contains calcium which should lower his phosphorus level in addition to his dialysis as a source of calcium supplementation. He was also given vitamin D3 and intact PTH and vitamin D levels were drawn and we will defer on followup as an outpatient with his PCP and/or his simulation engineer, Dr. Saeed, and will defer. The patient was advised to follow up with his PCP within 3 days post discharge and was advised to follow up with Dr. Ruiz in 1 to 2 months and to call [phone] to make/confirm an appointment. He was advised to take MiraLAX only if he has not had any bowel movements in 2 days and he was advised to start his Colace 200 mg p.o. daily only after finishing his Senna Plus Colace medication. He was further advised that if his symptoms resume or develop new ones or if he feels unwell for any reason, to call his PCP. If his PCP cannot entertain him due to scheduling issues alone, he was asked to call [facility] if the issue is considered non-emergent. He was advised to call my office regarding any questions, concerns, or further clarifications regarding his discharge plans and/or prescriptions and to take his medications as prescribed. REVIEW OF SYSTEMS: The patient currently denied any recent headaches, dizziness, fevers, chills, nausea, vomiting, chest pain, shortness of breath, increased cough nor sputum production, abdominal pain, diarrhea, constipation, pain and/or increased frequency on urination, myalgias, arthralgias, throat pain or new skin lesions. The rest of the 14-point review of systems is otherwise unremarkable. PHYSICAL EXAMINATION: Reveals the most recent vital signs of records with blood pressure of 132/42, 97.4 degrees Fahrenheit, 77 beats per minute heart rate, 16 per minute respiratory rate. General Appearance: The patient is awake , alert, and oriented x3, not in acute distress. HEENT: Normocephalic, atraumatic. PERRLA. Extraocular muscles intact. Negative for icterus. Moist oral mucosa. Negative throat erythema. Neck is soft, supple with no cervical lymphadenopathy. No JVD. Heart: S1, S2 within normal limits. Regular rate and rhythm. No murmurs, rubs or gallops. Chest: Clear to auscultation bilaterally, good air entry. No wheezes, rales or rhonchi. Abdomen is soft, nondistended, nontender. Normoactive bowel sounds 4x quadrant. Extremities: No cyanosis, clubbing or edema. Psychiatric: No active psychosis, depression, suicidal nor homicidal ideations. Skin is warm to touch. Of note, the patient is scheduled for his scheduled dialysis for today and will discharge the patient as long as patient is hemodynamically stable postdialysis and will defer for dialysis team to inform me otherwise. ADDENDUM: The pt unfortunately did not want to get discharged on 06/19/18 since he mentioned his dialysis schedule on that date was too late and did not feel safe to go home late afternoon or early evening given it gets dark early and due to weather. He stayed O/N with no issues. Physical examination is the same as above. No change in plans discussed above TIME SPENT: The total time spent evaluating the patient, reviewing pertinent data and appropriate documentation is 50 minutes. [id number]/[facility] #: [id number] [facility] HOSPITALJose Raul
[2018-06-20 05:25] LABS: ABS Basophils 0.1 10^3/ul (0-0.2); ABS Eosinophils 0.4 10^3/ul (0-0.6); ABS Monocytes 0.3 10^3/ul (0-0.8); ABS Neutrophils 2.9 10^3/ul (1.5-7.7); ABS Nucleated RBC 0 10^3/ul; Eosinophil % 8.6 % (0-6); Hematocrit 26 % (42-52); Hemoglobin 8.5 g/dl (14.0-18.0); Lymphocyte % 21.2 % (25-47); Mean Corpuscular HGB Conc 33 g/dl (31-36); Mean Corpuscular Hemoglobin 30 pg (27-31); Mean Corpuscular Volume 91 fL (80-94); Mean Platelet Volume 8.5 fL (7.4-10.4); Nucleated Red Blood Cells % 0.5; Platelet Count 178 10^3/ul (150-450); Red Blood Count 2.83 10^6/ul (4.00-5.40); Red Cell Distribution Width 18 % (10.5-15); White Blood Count 4.6 10^3/ul (3.5-10.8)
[2018-06-20 05:42] LABS: Albumin 3.1 g/dL (3.2-5.2); Albumin/Globulin Ratio 1.1 (1-3); BUN/Creatinine Ratio 3.4 (8-20); Calcium 8.2 mg/dL (8.6-10.3); EGFR African American 6.2 (>60); EGFR Non-African American 5.1 (>60); Globulin 2.7 g/dL (2-4); Magnesium 2.1 mg/dL (1.9-2.7); Phosphorus 6.2 mg/dL (2.5-5.0); Potassium 4.1 mmol/L (3.5-5.0); Total Bilirubin 0.3 mg/dL (0.2-1.0); Total Protein 5.8 g/dL (6.4-8.9)
[2018-06-20] MEDS: Aspirin EC TAB* 81 MG TAB.EC PO SCH (07:38)
[2018-06-20] MEDS: Benzonatate CAP* 100 MG PO SCH (07:38)
[2018-06-20] MEDS: Calcium Acetate CAP* 667 MG PO SCH ×2 (07:39→11:58)
[2018-06-20 11:18] VITALS: BP 118/40
== END 2018-06-20 12:45 | disposition home or self-care (01) | DRG 391 ==
LOC: ED 12:36 → INTOOBSV 19:55 → MEDTELE 19:55
PROVIDERS: ADMIT Internal Medicine; ATTEND Student in an Organized Health Care Education/Training Program
DX: K59.00 Constipation, unspecified (principal); N18.6 End stage renal disease; I12.0 Hypertensive chronic kidney disease with stage 5 chronic kidney disease or end stage renal disease; N17.9 Acute kidney failure, unspecified; I38 Endocarditis, valve unspecified; I47.2 Ventricular tachycardia; R07.89 Other chest pain; I35.1 Nonrheumatic aortic (valve) insufficiency; I27.20 Pulmonary hypertension, unspecified; I37.1 Nonrheumatic pulmonary valve insufficiency; E21.3 Hyperparathyroidism, unspecified; E66.01 Morbid (severe) obesity due to excess calories; F12.20 Cannabis dependence, uncomplicated; Z87.891 Personal history of nicotine dependence; Z68.36 Body mass index [BMI] 36.0-36.9, adult; Z99.2 Dependence on renal dialysis
CPT/HCPCS: 36415; 71046; 76705; 78226; 80048; 80053; 80061; 82306; 82330; 83605; 83690; 83735; 83880; 83970; 84100; 84443; 84484; 85025; 85027; 85610; 86140; 87040; 87641; 90935; 93005; 93306; 99284; A9270-GY; A9537; G0257; G0378; J0610; J0885; J1644; J2405; J2543; J3490

== ENCOUNTER 2018-06-28 14:36 | Emergency (ER) | payer OTHER ==
[2018-06-28 16:01] LABS: Hematocrit 30 % (42-52); Hemoglobin 9.4 g/dl (14.0-18.0); Mean Corpuscular HGB Conc 32 g/dl (31-36); Mean Corpuscular Hemoglobin 30 pg (27-31); Mean Corpuscular Volume 94 fL (80-94); Red Blood Count 3.17 10^6/ul (4.00-5.40); Red Cell Distribution Width 19 % (10.5-15)
[2018-06-28 16:17] LABS: White Blood Count 6.2 10^3/ul (3.5-10.8)
[2018-06-28 16:20] LABS: ABS Basophils 0 10^3/ul (0-0.2); ABS Neutrophils 3.8 10^3/ul (1.5-7.7); ABS Neutrophils 4.3 10^3/ul (1.5-7.7); Mean Platelet Volume 9.4 fL (7.4-10.4); Monocytes % 6 % (0-7)
[2018-06-28 16:22] LABS: Platelet Count Platelets clumped. 10^3/ul (150-450)
[2018-06-28 17:41] LABS: INR 1.13 (0.77-1.02)
--- NOTE | 2018-06-28 17:43 | ED ---
HPI Chest Pain - HPI Summary HPI Summary: Patient is a 37-year-old male with history of end-stage renal disease on dialysis, severe aortic regurgitation with right atrial enlargement, and some new onset congestive heart failure. He was seen in the ED 2 weeks ago and had a 5 day admission. Full cardiac workup was obtained which showed severe aortic regurgitation and stenosis. Stress test was unable to be completed due to patient's shortness of breath. He's been denying any fevers, sweats, chills. He is currently on dialysis every Friday and Friday. His last dialysis was yesterday (Friday), but states his next dialysis is not until Friday. He is a patient of Dr. Saeed and now a new patient of Dr. Ruiz's. Patient is a poor historian. He is endorsing midsternal chest pain without radiation. Denies any weakness. Denies any visual changes, disturbances or headaches. - History of Current Complaint Chief Complaint: EDChestPainROMI Time Seen by Provider: 06/28/18 14:38 Hx Obtained From: Patient Onset/Duration: Started Days Ago Timing: Constant Initial Severity: Moderate Current Severity: Moderate Pain Intensity: 2 Pain Scale Used: 0-10 Numeric Chest Pain Location: Mid Sternal Chest Pain Radiates: No Character: Dull/Aching Aggravating Factor(s): Exertion Alleviating Factor(s): Rest Associated Signs and Symptoms: Positive: Shortness of Breath - Risk Factors Pulmonary Embolism Risk Factors: Negative TAD Risk Factors: Negative AMI/ACS Risk Factors: Diabetes, Obesity, Family History, Hypertension, CHF - Additional Pertinent History Primary Care Physician: [id number] - Allergy/Home Medications Allergies/Adverse Reactions: Allergies Allergy/AdvReac Type Severity Reaction Status Date / Time morphine Allergy Hallucinati Verified 06/15/18 12:45 ons PMH/Surg Hx/FS Hx/Imm Hx Previously Healthy: Yes Endocrine/Hematology History: Denies: Hx Diabetes Cardiovascular History: Reports: Hx Angina - Walking up hills Denies: Hx Hypertension Respiratory History: Denies: Hx Asthma, Hx Chronic Obstructive Pulmonary Disease (COPD) History: Reports: Hx Chronic Renal Failure, Hx Dialysis, Other Problems/ Disorders - ESRD Sensory History: Denies: Hx Contacts or Glasses, Hx Hearing Aid Opthamlomology History: Denies: Hx Contacts or Glasses Psychiatric History: Reports: Hx Depression Denies: Hx Eating Disorder, Hx of Violent Episodes Against Others - Surgical History Surgery Procedure, Year, and Place: none - Immunization History Hx Pertussis Vaccination: No Immunizations Up to Date: Yes Infectious Disease History: No Infectious Disease History: Denies: Traveled Outside the [place] in Last 30 Days - Family History Known Family History: Positive: Diabetes - brother - Social History Occupation: Unemployed Lives: Alone Alcohol Use: None Hx Substance Use: No Substance Use Type: Reports: None Hx Tobacco Use: No Smoking Status (MU): Never Smoked Tobacco Review of Systems Constitutional: Negative Negative: Fever, Chills, Fatigue, Skin Diaphoresis Negative: Epistaxis, Dental Pain Positive: Chest Pain Positive: Shortness Of Breath. Negative: Cough Negative: Abdominal Pain, Vomiting, Diarrhea, Nausea Genitourinary: Negative Positive: no symptoms reported, see HPI Negative: Arthralgia, Myalgia Skin: Negative Neurological: Negative All Other Systems Reviewed And Are Negative: Yes Physical Exam Triage Information Reviewed: Yes Vital Signs On Initial Exam: Initial Vitals Pulse BP Pulse Ox 93 152/66 97 06/28/18 14:41 06/28/18 14:41 06/28/18 14:41 Vital Signs Reviewed: Yes Appearance: Positive: Well-Appearing, No Pain Distress, Obese Skin: Positive: Other - dry scaly Head/Face: Positive: Normal Head/Face Inspection Eyes: Positive: EOMI, THAD, Conjunctiva Clear Neck: Positive: Nontender, No Lymphadenopathy Respiratory/Lung Sounds: Positive: Clear to Auscultation, Breath Sounds Present Cardiovascular: Positive: Pulses are Symmetrical in both Upper and Lower Extremities, Leg Edema Left - +1, Leg Edema Right - +1 Musculoskeletal: Positive: Strength/ROM Intact Neurological: Positive: Speech Normal Psychiatric: Positive: Affect/Mood Appropriate AVPU Assessment: Alert Diagnostics - Vital Signs Vital Signs Temp Pulse Resp BP Pulse Ox 06/28/18 16:00 91 06/28/18 15:50 91 15 136/74 86 06/28/18 15:00 32 06/28/18 14:42 98.4 F 92 20 152/66 99 06/28/18 14:41 93 152/66 97 - Laboratory Lab Results: Lab Results 06/28/18 06/28/18 06/28/18 Range/Units 15:35 15:35 17:26 WBC 6.2 (3.5-10.8) 10^3/ul RBC 3.17 L (4.00-5.40) 10^6/ul Hgb 9.4 L (14.0-18.0) g/dl Hct 30 L (42-52) % MCV 94 (80-94) fL MCH 30 (27-31) pg MCHC 32 (31-36) g/dl RDW 19 H (10.5-15) % Plt Count Platelets clumped. H (150-450) 10^3/ul MPV 9.4 (7.4-10.4) fL Neut % (Auto) Not Reportable Lymph % (Auto) Not Reportable [place] % (Auto) Not Reportable Eos % (Auto) Not Reportable Baso % (Auto) Not Reportable Absolute Neuts (auto) 3.8 (1.5-7.7) 10^3/ul Absolute Lymphs (auto) Not Reportable Absolute Monos (auto) Not Reportable Absolute Eos (auto) Not Reportable Absolute Basos (auto) Not Reportable Absolute Nucleated RBC Not Reportable Immature Gran % 1 (0-9) % Neutrophils % 69 (38-83) % Band Neutrophils % 1 (0-8) % Lymphocytes % 20 L (25-47) % Monocytes % 6 (0-7) % Eosinophils % 4 (0-6) % Basophils % 0 (0-2) % Nucleated RBC % Not Reportable Abs Neuts (Manual) 4.3 (1.5-7.7) 10^3/ul Abs Lymphs (Manual) 1.2 (1.0-4.8) 10^3/ul Abs Monocytes (Manual) 0.4 (0-0.8) 10^3/ul Absolute Eos (Manual) 0.2 (0-0.6) 10^3/ul Abs Basophils (Manual) 0 (0-0.2) 10^3/ul Clumped Platelets Present Normal RBC Morphology Not Reportable Polychromasia 1+ INR (Anticoag Therapy) 1.13 H (0.77-1.02) Sodium 143 (135-145) mmol/L Potassium 4.9 (3.5-5.0) mmol/L Chloride 103 (101-111) mmol/L Carbon Dioxide 28 (22-32) mmol/L Anion Gap 12 H (2-11) mmol/L BUN 34 H (6-24) mg/dL Creatinine 9.78 H (0.67-1.17) mg/dL Est GFR ( Amer) 7.2 (>60) Est GFR (Non-Af Amer) 6.0 (>60) BUN/Creatinine Ratio 3.5 L (8-20) Glucose 84 (70-100) mg/dL Calcium 9.2 (8.6-10.3) mg/dL Magnesium 2.5 (1.9-2.7) mg/dL Total Bilirubin 0.50 (0.2-1.0) mg/dL AST 24 (13-39) U/L ALT 56 H (7-52) U/L Alkaline Phosphatase 60 (34-104) U/L CK-MB (CK-2) 2.1 (0.6-6.3) ng/mL Troponin I 0.00 (<0.04) ng/mL Total Protein 6.7 (6.4-8.9) g/dL Albumin 3.6 (3.2-5.2) g/dL Globulin 3.1 (2-4) g/dL Albumin/Globulin Ratio 1.2 (1-3) Result Diagrams: 06/28/18 15:35 06/28/18 15:35 Lab Statement: Any lab studies that have been ordered have been reviewed, and results considered in the medical decision making process. Chest Pain Course/Dx - Course Course Of Treatment: During the course treatment, the patient is evaluated for midsternal chest pain an acute onset shortness of breath after finishing dialysis yesterday. He is currently on dialysis Friday, and Friday , but states his next dialysis is not to Friday. He has no diagnosis of V. tach, however during his stay there is a short run (10) v tach. Patient was asymptomatic during this time. EKG shows normal sinus rhythm, probable left atrial enlargement. Rate of 87. Discussed case with Dr. Castillo. Patient was a difficult stick and we were unable to obtain several of the required blood work until 1.5 hours into his stay where we used ultrasound with success. IV was placed and at that time a BNP was able to be obtained. BNP currently at 4989, which is worsening from his stay in the hospital at 3318. Discussed case with Dr. Saeed who suggested consult from Dr. Mancuso. Dr. Mancuso Discussed case with Dr. Alvarez who agrees to see patient and consult. Dr. Alvarez agrees he may need to be dialized sooner, however patient remains comfortable and at this time no obvious reason for an admission. Dr. Mancuso to see patient in the ED as well. Consult with Dr. Alvarez and Bernarda and myself all in agreement this patient is stable for discharge home with dialysis to call patient tomorrow for earlier appt. - Chest Pain Differential Diagnosis/HQI/PQRI: Chest Wall, Pulmonary Edema, Other: - aortic regurgitation, SOB - Diagnoses Provider Diagnoses: Chest pain, Shortness of breath - Provider Notifications Discussed Care Of Patient With: Jaime Alvarez Discharge - Sign-Out/Discharge Documenting (check all that apply): Patient Departure - Discharge Plan Condition: Stable Disposition: HOME Referrals: No Primary Care Phys,NOPCP [Primary Care Provider] - Additional Instructions: Call dialysis center tomorrow morning Return for any worsening symptoms - Billing Disposition and Condition Condition: STABLE Disposition: Home
[2018-06-28 19:09] VITALS: BP 150/75
--- NOTE | 2018-06-28 23:17 | PN ---
PROGRESS NOTE: DATE OF SERVICE: 06/28/18 REASON FOR FOLLOWUP: The patient seen in the ER for evaluation of volume overload. SUBJECTIVE: The patient reported some shortness of breath and chest pain that came on with exertion. Reports that he was walking when he started having chest pain. The patient was recently hospitalized for similar complaints of chest pain and was extensively worked up by the medical team. She had an echocardiogram which showed severe aortic regurgitation with evidence of severe pulmonary hypertension and moderate pulmonic regurgitation with an ejection fraction of 50% to 55%. Also there was a question of endocarditis with a mobile mass noted during his prior hospital stay and per review of notes, this was evaluated and ruled out in conjunction with Infectious Disease, Cardiology and the hospitalist team. OBJECTIVE: Vitals were noted to be stable today at the time of evaluation. Blood pressure 136/74, saturation 99% on room air, heart rate noted to be 84, temperature 98.4. HEENT: NCAT. Heart: S1, S2 present. Regular at the time of exam. Lungs: Decreased breath sounds bilaterally with minimal crackles at the bases. Abdomen : Soft, nontender. Extremities: Noted to have 1+ edema. Neuro: Alert and oriented x3. The patient is saturating comfortably, 99% on room air. LABORATORY DATA: Labs from today have been reviewed, showed potassium of 4.9. Also, initial troponin was negative. BNP was elevated at more than 4989, magnesium was noted to be 2.5. ASSESSMENT/PLAN: End-stage renal disease. The patient currently on dialysis Friday, and Friday, and the patient was dialyzed yesterday. The patient was recently hospitalized for chest pain and shortness of breath and was worked up by the medical team as described above. The hospitalist team is evaluating the patient to see if he needs inpatient hospital stay versus discharge. With respect to his dialysis, the patient does not require emergent dialysis overnight as he is noted to have stable vitals, also saturations noted to be 99% on room air. In light of this, we will inform the dialysis unit tomorrow. I do believe that the patient will likely not be able to go without dialysis until Friday per the holiday schedule. We will discuss with the dialysis unit about dialyzing the patient prior to that and possibly in the morning. Further plan with respect to cardiac evaluation and admission per the ER and medical team. [id number]/[facility] #: [id number] [facility]
== END 2018-06-28 19:08 | disposition home or self-care (01) ==
LOC: ED 14:36
DX: R07.9 Chest pain, unspecified (principal); R06.02 Shortness of breath; I12.0 Hypertensive chronic kidney disease with stage 5 chronic kidney disease or end stage renal disease; E11.22 Type 2 diabetes mellitus with diabetic chronic kidney disease; N18.6 End stage renal disease; Z99.2 Dependence on renal dialysis; E66.9 Obesity, unspecified; Z82.49 Family history of ischemic heart disease and other diseases of the circulatory system; Z88.5 Allergy status to narcotic agent
CPT/HCPCS: 36415; 71046; 80053; 82553; 83605; 83735; 83880; 84484; 85025; 85610; 93005; 99283

== ENCOUNTER 2018-06-29 19:34 | Observation (INO) | payer OTHER ==
[2018-06-29] MEDS ORDERED: Acetaminophen TAB* 325 MG PO ONE (21:02)
[2018-06-29] MEDS ORDERED: fentaNYL* 50 MCG/ML 2 ML VIAL (100 MCG VIAL) IV SLOW PU ONE (21:04)
[2018-06-29] MEDS ORDERED: Vancomycin(*) 1,000 MG in NS 0.9% 250 ML* 250 ML IVPB ONE (21:05)
[2018-06-29] MEDS ORDERED: Piperacillin/Tazobac ADVAN(*) 3.375 GM in NS 0.9% 100 ML* 100 ML IVPB ONE (21:05)
--- NOTE | 2018-06-29 21:09 | ED ---
Complex/Multi-Sys Presentation - HPI Summary HPI Summary: A 37 y/o male presents to the ED with many complaints, but his most concerning is his RLE edema on 06/29/2018. He reports that he came to the ED after his "heart jumped" during dialysis on 06/27/2018, but was discharged home. He claims that his visit to the ED on 06/27/2018 was for this "heart jump" and SOB. The patient currently endorses SOB, coughing up phlegm, CP, RLE pain and edema. He denies fever and chills. The patient is a former smoker and reports quitting 20 years ago. - History Of Current Complaint Chief Complaint: EDGeneral Time Seen by Provider: 06/29/18 20:50 Hx Obtained From: Patient Onset/Duration: Sudden Onset, Lasting Hours, Still Present Timing: Constant Severity Currently: Moderate Severity Initially: Moderate Location: Pain At: - RLE Associated Signs And Symptoms: Positive: SOB, Cough - Allergies/Home Medications Allergies/Adverse Reactions: Allergies Allergy/AdvReac Type Severity Reaction Status Date / Time morphine Allergy Hallucinati Verified 06/15/18 12:45 ons PMH/Surg Hx/FS Hx/Imm Hx Endocrine/Hematology History: Denies: Hx Diabetes Cardiovascular History: Reports: Hx Angina - Walking up [place] Denies: Hx Hypertension Respiratory History: Denies: Hx Asthma, Hx Chronic Obstructive Pulmonary Disease (COPD) History: Reports: Hx Chronic Renal Failure, Hx Dialysis, Other Problems/ Disorders - ESRD Sensory History: Denies: Hx Contacts or Glasses, Hx Hearing Aid Opthamlomology History: Denies: Hx Contacts or Glasses Psychiatric History: Reports: Hx Depression Denies: Hx Eating Disorder, Hx of Violent Episodes Against Others - Surgical History Surgery Procedure, Year, and Place: none Infectious Disease History: No Infectious Disease History: Denies: Traveled Outside the [place] in Last 30 Days - Family History Known Family History: Positive: Diabetes - brother - Social History Alcohol Use: None Hx Substance Use: No Substance Use Type: Reports: None Hx Tobacco Use: No Smoking Status (MU): Never Smoked Tobacco Review of Systems Negative: Fever, Chills Positive: Chest Pain Positive: Shortness Of Breath, Cough - coughing up phlegm Positive: Myalgia - RLE, Edema - RLE All Other Systems Reviewed And Are Negative: Yes Physical Exam - Summary Physical Exam Summary: VITAL SIGNS: Reviewed. GENERAL: Patient is a well-developed and nourished MALE who is lying comfortable in the stretcher. Patient is not in any acute respiratory distress. HEAD AND FACE: No signs of trauma. No ecchymosis, hematomas or skull depressions. No sinus tenderness. EYES: PERRLA, EOMI x 2, No injected conjunctiva, no nystagmus. EARS: Hearing grossly intact. Ear canals and tympanic membranes are within normal limits. MOUTH: Oropharynx within normal limits. NECK: Supple, trachea is midline, no adenopathy, JVD up to 6 cm, no carotid bruit, no c-spine tenderness, neck with full ROM. CHEST: Symmetric, no tenderness at palpation LUNGS: Mild expiratory wheezes. CVS: 3/6 systolic murmur over aortic area. ABDOMEN: Soft, non-tender. No signs of distention. No rebound no guarding, and no masses palpated. Bowel sounds are normal. EXTREMITIES: Bilateral lower extremity edema right more than left. RLE tender and warm. Dialysis shunt over left forearm good thrill. NEURO: Alert and oriented x 3. No acute neurological deficits. Speech is normal and follows commands. SKIN: Bilateral chronic skin changes in legs Triage Information Reviewed: Yes Vital Signs On Initial Exam: Initial Vitals Temp Pulse Resp BP Pulse Ox 101.4 F 97 18 151/52 97 06/29/18 19:39 06/29/18 19:39 06/29/18 19:39 06/29/18 19:39 06/29/18 19:39 Vital Signs Reviewed: Yes Procedures - Ultrasound No standard instances Ultrasound: normal - for IV insertion, used 20 gague, started in basilic vein. Diagnostics - Vital Signs Vital Signs Temp Pulse Resp BP Pulse Ox 06/29/18 19:39 101.4 F 97 18 151/52 97 - Laboratory Result Diagrams: 06/29/18 21:35 06/29/18 21:35 Lab Statement: Any lab studies that have been ordered have been reviewed, and results considered in the medical decision making process. - Radiology CXR Radiology Interpretation Completed By: ED Physician - Cardiomegaly. No acute infiltrate. Pending official report. - Ultrasound No standard instances Ultrasound Interpretation Completed By: Radiologist - US bilateral duplex lower extremity veins: no evidence of deep vein thrombosis in left or right lower extremity. ED physician has reviewed this imaging report. - EKG 21:32 Cardiac Rate: NL - 90 bpm EKG Rhythm: Sinus Rhythm Summary of EKG Findings: LVH Re-Evaluation - Re-Evaluation First Eval Re-Evaluation Time: 21:40 Change: Unchanged Comment: Started IV in basilic vein. Second Eval Re-Evaluation Time: 22:05 Change: Unchanged Comment: Pt did consent for HIV testing. Pt states he has not had sex for years. Complex Multi-Symp Course/Dx Course Of Treatment: A 37 y/o male presents to the ED with many complaints, but his most concerning is his RLE edema on 06/29/2018. He reports that he came to the ED after his "heart jumped" during dialysis on 06/27/2018, but was discharged home. He claims that his visit to the ED on 06/27/2018 was for this "heart jump" and SOB. The patient currently endorses SOB, coughing up phlegm, CP , RLE pain and edema. He denies fever and chills. The patient is a former smoker and reports quitting 20 years ago. His PE was remarkable with JVD up to 6cm, Mild expiratory wheezes, 3/6 systolic murmur over aortic area, Dialysis shunt left forearm good thrill, Bilateral LE edema right more than left, Right leg tender and warm, Bilateral chronic skin changes in legs. Pt was not given IV fluid as per sepsis protocol because he is a dialysis patient. His EKG revealed NSR at 90 bpm with LVH. His CXR revealed:Cardiomegaly. No acute infiltrate. I started an IV in his basilic vein. In the course the pt was given tylenol PO and fentanyl IV. Pt did consent for HIV testing. Pt states he has not had sex for years. His US bilateral duplex lower extremity veins impression was: no evidence of deep vein thrombosis in left or right lower extremity. In the course the pt was given tylenol PO and fentanyl IV. Dx: cellulits, end stage renal disease. The hospitalist, Dr. Singh, accepted the patient for admission. - Diagnoses Provider Diagnoses: Cellulitis, End stage renal disease - Physician Notifications Discussed Care Of Patient With: Laureen Singh Time Discussed With Above Provider: 00:15 Instructed by Provider To: Other - Dr. Singh was paged at 00:10. At 00:[address] Singh the patient's condition and she accepted for admission. Discharge - Sign-Out/Discharge Documenting (check all that apply): Patient Departure - Admit - Discharge Plan Condition: Fair Disposition: ADMITTED TO [facility] Referrals: No Primary Care Phys,NOPCP [Primary Care Provider] - - Attestation Statements Document Initiated by Scribe: Yes Documenting Scribe: Edgar Root Provider For Whom Scribe is Documenting (Include Credential): Paramjit Barnhart MD Scribe Attestation: I, Edgar Root, scribed for Paramjit Barnhrat MD on 06/30/18 at 0059.
[2018-06-29 21:51] LABS: ABS Basophils 0 10^3/ul (0-0.2); ABS Eosinophils 0.2 10^3/ul (0-0.6); ABS Lymphocytes 1.2 10^3/ul (1.0-4.8); ABS Monocytes 0.6 10^3/ul (0-0.8); ABS Neutrophils 5.7 10^3/ul (1.5-7.7); ABS Nucleated RBC 0 10^3/ul; Eosinophil % 2.7 % (0-6); Hematocrit 26 % (42-52); Hemoglobin 8.4 g/dl (14.0-18.0); Lymphocyte % 15.8 % (25-47); Mean Corpuscular HGB Conc 32 g/dl (31-36); Mean Corpuscular Hemoglobin 30 pg (27-31); Mean Corpuscular Volume 93 fL (80-94); Mean Platelet Volume 8.5 fL (7.4-10.4); Nucleated Red Blood Cells % 0.4; Platelet Count 166 10^3/ul (150-450); Red Blood Count 2.82 10^6/ul (4.00-5.40); Red Cell Distribution Width 19 % (10.5-15); White Blood Count 7.7 10^3/ul (3.5-10.8)
[2018-06-29 22:01] LABS: INR 1.16 (0.77-1.02)
[2018-06-29 22:03] LABS: EGFR Non-African American 4.1 (>60)
[2018-06-30] MEDS ORDERED: Al Hydrox/Mg Hydrox/Simet LIQ* 30 ML UDC PO PRN (00:21)
--- NOTE | 2018-06-30 00:28 | ADMNOTE ---
Subjective Date of Service: 06/30/18 Interval History: code status this is admission h/p pt is a poor historian hpi this is a 37 yr old aa male with hx of esrd for the 5 yrs on presented to er with c/o of two days hx of rle warmth/swelling/pain. pt also had intermittant chest pain with sob prior to admission and called his hd nurse and was instructed to come to er for eval ---> he had very leaky mitral valve seen on echo/ unable to complete his stress test last admission---> initial wbc wnl as well as lactic acid ---> got zosyn/vanco from er ---> his mrsa nare was neg last admission which was 2 weeks ago le doppler were neg of clots phx esrd on hd with left arm av fistula on for the past 5 yrs ---> pt himself was not sure why he has been on hd ( reluctant to reveal his illicit drug/st drug use hx ) htn morbid obesity ? 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 brother + dm Review of Systems - Measurements Intake and Output: Intake and Output Last 24 Hours 06/27/18 06/28/18 06/29/18 06/30/18 06:59 06:59 06:59 06:59 Weight 244 lb 11.41 oz - Review of Systems General Comments: pertinent as per hpi Objective Active Medications: Al Hydrox/Mg Hydrox/Simethicone (Maalox Plus*) 30 ml PO Q6H PRN PRN Reason: INDIGESTION Heparin Sodium (Porcine) (Heparin Vial(*)) 5,000 units SUBCUT Q8HR [facility] Vital Signs - 8 hr 06/29/18 06/29/18 06/29/18 19:39 22:03 22:43 Temperature 101.4 F Pulse Rate 97 70 Respiratory 18 16 18 Rate Blood Pressure 151/52 155/60 (mmHg) O2 Sat by Pulse 97 95 Oximetry Oxygen Devices in Use Now: None Appearance: nad Eyes: No Scleral Icterus, PERRLA Ears/Nose/Mouth/Throat: NL Teeth, Lips, Gums, Clear Oropharnyx, Mucous Membranes Moist Neck: NL Appearance and Movements; NL JVP, Trachea Midline, No Thyroid Enlargement, Masses Respiratory: Symmetrical Chest Expansion and Respiratory Effort, Clear to Auscultation Cardiovascular: RRR, - - + dem heard on the left sternal border Abdominal: NL Sounds; No Tenderness; No Distention Extremities: - - able to raise rle about 10-15 degree but lle 30 degree Skin: - - mild warmth/erythema on the r leg compared to left leg Neurological: Alert and Oriented x 3, NL Sensation, NL Muscle Strength and Tone - ns no acute st t change Result Diagrams: 06/30/18 03:07 06/30/18 03:07 Assess/Plan/Problems-Billing Assessment: this is 37 yr old aa male with esrd on hd for the past 5 yrs ago poor historian presented to er with rle pain/swelling intial wbc/lactic wnl but he spike to 38.5 le sono neg of dvt pt keeps c/o intermittant cp/sob failed to complete stress test last time - Patient Problems (1) ESRD (end stage renal disease) Current Visit: No Status: Acute Code(s): N18.6 - END STAGE RENAL DISEASE SNOMED Code(s): 00742749 Comment: hd today (2) Chest pain Current Visit: Yes Status: Acute Code(s): R07.9 - CHEST PAIN, UNSPECIFIED SNOMED Code(s): 43930084 Comment: unable to complete his stress test last time will try nuclear stress test this time tele with rodger (3) Depression Current Visit: Yes Status: Acute Code(s): F32.9 - MAJOR DEPRESSIVE DISORDER , SINGLE EPISODE, UNSPECIFIED SNOMED Code(s): 95768220 Comment: stable continue current mgt (4) HTN (hypertension) Current Visit: No Status: Acute Code(s): I10 - ESSENTIAL (PRIMARY) HYPERTENSION SNOMED Code(s): 39628279 Comment: - Stable on home meds (5) Cellulitis of right leg Current Visit: Yes Status: Acute Code(s): L03.115 - CELLULITIS OF RIGHT LOWER LIMB SNOMED Code(s): 920878227 Comment: clindamycin ivpb as tolerated
[2018-06-30] MEDS ORDERED: Albuterol 2.5 MG/3 ML NEB.SOL* (0.083%) INH PRN (01:07)
[2018-06-30] MEDS: traMADol TAB* 50 MG PO PRN ×3 (01:48→22:09)
[2018-06-30] MEDS: GuaiFENesin DM* 5 ML UDC PO PRN ×3 (01:56→13:56)
[2018-06-30 03:13] LABS: ABS Basophils 0.1 10^3/ul (0-0.2); ABS Eosinophils 0.4 10^3/ul (0-0.6); ABS Lymphocytes 1.2 10^3/ul (1.0-4.8); ABS Monocytes 0.5 10^3/ul (0-0.8); ABS Neutrophils 5.8 10^3/ul (1.5-7.7); ABS Nucleated RBC 0 10^3/ul; Eosinophil % 4.5 % (0-6); Hematocrit 26 % (42-52); Hemoglobin 8.4 g/dl (14.0-18.0); Lymphocyte % 15.3 % (25-47); Mean Corpuscular HGB Conc 32 g/dl (31-36); Mean Corpuscular Hemoglobin 30 pg (27-31); Mean Corpuscular Volume 92 fL (80-94); Mean Platelet Volume 8.1 fL (7.4-10.4); Nucleated Red Blood Cells % 0.1; Platelet Count 162 10^3/ul (150-450); Red Blood Count 2.82 10^6/ul (4.00-5.40); Red Cell Distribution Width 19 % (10.5-15); White Blood Count 7.9 10^3/ul (3.5-10.8)
[2018-06-30 03:24] LABS: INR 1.22 (0.77-1.02)
[2018-06-30 03:29] LABS: EGFR Non-African American 3.9 (>60)
[2018-06-30] MEDS: Heparin VIAL(*) 5000 UNITS/ML VIAL (FIVE THOUSAND) SUBCUT SCH ×3 (05:25→22:11)
[2018-06-30] MEDS: Acetaminophen TAB* 325 MG PO SCH ×3 (05:26→19:20)
[2018-06-30] MEDS: Clindamycin 600 MG IVPREMIX(* 600 MG/50 ML SDV IV SCH ×3 (05:27→22:10)
--- NOTE | 2018-06-30 07:58 | PN ---
Subjective Date of Service: 06/30/18 Interval History: Pt is feeling poorly this AM. He continues to cough. It is dry and he is not bringing up any sputum. He thinks the swelling in the R LE is improved some. He has not noticed if there is less erythema or warmth. He states since his last d/ c he has continued to have intermittent chest discomfort. He is ok with proceeding with the stress test. Objective Active Medications: Acetaminophen (Tylenol Tab*) 650 mg PO Q6HR [facility] Last Admin: 06/30/18 05:26 Dose: 650 mg Al Hydrox/Mg Hydrox/Simethicone (Maalox Plus*) 30 ml PO Q6H PRN PRN Reason: INDIGESTION Albuterol (Ventolin 2.5 Mg/3 Ml Neb.Lucia*) 2.5 mg INH Q6H PRN PRN Reason: SOB/WHEEZING Aspirin (Aspirin Ec Tab*) 81 mg PO DAILY [facility] Benzonatate (Tessalon Cap*) 100 mg PO TID [facility] Calcium Acetate (Phoslo Cap*) 667 mg PO AC [facility] Calcium Acetate (Phoslo Cap*) 667 mg PO TID WITH MEALS [facility] Cholecalciferol (Vitamin D Tab*) 1,000 units PO DAILY [facility] Guaifenesin/Dextromethorphan (Robitussin Dm*) 5 ml PO Q6H PRN PRN Reason: COUGH Last Admin: 06/30/18 01:56 Dose: 5 ml Heparin Sodium (Porcine) (Heparin Vial(*)) 5,000 units SUBCUT Q8HR [facility] Last Admin: 06/30/18 05:25 Dose: 5,000 units Clindamycin HCl/Dextrose (Cleocin 600 Mg Ivpremix(*) Sdv) 600 mg in 50 mls @ 100 mls/hr IV Q8H [facility] Last Admin: 06/30/18 05:27 Dose: 100 mls/hr Tramadol HCl (Ultram*) 25 mg PO Q8H PRN PRN Reason: PAIN Last Admin: 06/30/18 01:48 Dose: 25 mg Vital Signs - 8 hr 06/30/18 06/30/18 06/30/18 00:28 00:41 01:13 Temperature 97.8 F Pulse Rate 75 87 93 Respiratory 16 18 24 Rate Blood Pressure 145/74 143/66 167/63 (mmHg) O2 Sat by Pulse 100 100 92 Oximetry 06/30/18 06/30/18 06/30/18 01:36 01:40 01:48 Temperature 97.8 F 99 F Pulse Rate 93 85 Respiratory 24 16 20 Rate Blood Pressure 167/63 142/70 (mmHg) O2 Sat by Pulse 92 95 Oximetry 06/30/18 06/30/18 03:58 05:35 Temperature 98.1 F Pulse Rate 88 Respiratory 24 22 Rate Blood Pressure 156/63 (mmHg) O2 Sat by Pulse 98 Oximetry Oxygen Devices in Use Now: None Appearance: Young obese male lying in bed, NAD Eyes: No Scleral Icterus Ears/Nose/Mouth/Throat: Mucous Membranes Moist Respiratory: Symmetrical Chest Expansion and Respiratory Effort, Clear to Auscultation, - - deep breath triggers dry cough Cardiovascular: RRR, - - III/ diastolic murmur, 1-2 + pitting edema of B/L LE (R>L) Abdominal: NL Sounds; No Tenderness; No Distention Extremities: No Clubbing, Cyanosis Skin: No Nodules or Sclerosis, - - dry scaly skin on the B/L lower legs Neurological: Alert and Oriented x 3 Result Diagrams: 06/30/18 03:07 06/30/18 03:07 Assess/Plan/Problems-Billing Mr Govea is a 37 yo M with a h/o ESRD on HD, severe aortic regurgitation, hyperparathyroidism and HTN who presented to the ER with c/o R LE swelling, redness, warmth and pain and was admitted for treatment of a R LE cellulitis. - Patient Problems (1) Cellulitis of right leg Current Visit: Yes Status: Acute Code(s): L03.115 - CELLULITIS OF RIGHT LOWER LIMB SNOMED Code(s): 543504335 Comment: No significant color difference in the leg though the R LE is warmer to touch and more swollen than the L. Will continue clindamycin for now. Will add on CRP to labs obtained this AM. (2) Chest pain Current Visit: Yes Status: Acute Code(s): R07.9 - CHEST PAIN, UNSPECIFIED SNOMED Code(s): 65822987 Comment: Plan is for chemical nuclear stress test this AM as he has continued to have intermittent CP and SOB. (3) HTN (hypertension) Current Visit: Yes Status: Acute Code(s): I10 - ESSENTIAL (PRIMARY) HYPERTENSION SNOMED Code(s): 10950258 Comment: BP is moderately elevated. Will start amlodipine 5mg po daily. (4) ESRD (end stage renal disease) Current Visit: Yes Status: Acute Code(s): N18.6 - END STAGE RENAL DISEASE SNOMED Code(s): 00831969 Comment: Continue HD ,, (5) DVT prophylaxis Current Visit: Yes Status: Acute Code(s): JQU6199 - SNOMED Code(s): 025471819 Comment: SQ heparin (6) Patient is full code Current Visit: Yes Status: Acute Code(s): Z78.9 - OTHER SPECIFIED HEALTH STATUS SNOMED Code(s): 772172263
[2018-06-30] MEDS: Cholecalciferol TAB* 1000 UNITS PO SCH (08:04)
[2018-06-30] MEDS: Benzonatate CAP* 100 MG PO SCH ×3 (08:04→22:09)
[2018-06-30] MEDS: Aspirin EC TAB* 81 MG TAB.EC PO SCH (08:04)
[2018-06-30] MEDS: Calcium Acetate CAP* 667 MG PO SCH ×6 (09:57→19:20)
[2018-06-30] MEDS: amLODIPine TAB* 5 MG PO SCH (10:04)
[2018-06-30] MEDS ORDERED: Regadenoson* 0.4 MG/5 ML SYRINGE ONE (10:08)
[2018-06-30] MEDS ORDERED: Aminophylline IV* 25 MG/ML 10 ML VIAL ONE (10:34)
[2018-06-30] MEDS ORDERED: Epoetin Alfa* 2,000 UNITS/ML VIAL IV ONE (17:30)
[2018-06-30] MEDS ORDERED: Heparin DIALYSIS ONLY(*) 1,000 UNITS/ML VIAL DIALYSIS ONE (18:30)
[2018-07-01] MEDS: Acetaminophen TAB* 325 MG PO SCH ×5 (00:13→23:11)
[2018-07-01] MEDS: Heparin VIAL(*) 5000 UNITS/ML VIAL (FIVE THOUSAND) SUBCUT SCH ×3 (05:31→21:38)
[2018-07-01] MEDS: Clindamycin 600 MG IVPREMIX(* 600 MG/50 ML SDV IV SCH ×3 (05:32→21:40)
[2018-07-01] MEDS: GuaiFENesin DM* 5 ML UDC PO PRN ×2 (05:42→18:53)
[2018-07-01] MEDS: Benzonatate CAP* 100 MG PO SCH ×3 (09:17→21:35)
[2018-07-01] MEDS: Calcium Acetate CAP* 667 MG PO SCH ×5 (09:17→17:34)
[2018-07-01 09:18] LABS: ABS Basophils 0 10^3/ul (0-0.2); ABS Eosinophils 0.4 10^3/ul (0-0.6); ABS Lymphocytes 1.3 10^3/ul (1.0-4.8); ABS Monocytes 0.4 10^3/ul (0-0.8); ABS Neutrophils 3.4 10^3/ul (1.5-7.7); ABS Nucleated RBC 0 10^3/ul; Eosinophil % 7.1 % (0-6); Hematocrit 27 % (42-52); Hemoglobin 8.7 g/dl (14.0-18.0); Mean Corpuscular HGB Conc 32 g/dl (31-36); Mean Corpuscular Hemoglobin 29 pg (27-31); Mean Corpuscular Volume 92 fL (80-94); Mean Platelet Volume 9.1 fL (7.4-10.4); Nucleated Red Blood Cells % 0.2; Platelet Count 169 10^3/ul (150-450); Red Blood Count 2.95 10^6/ul (4.00-5.40); Red Cell Distribution Width 19 % (10.5-15); White Blood Count 5.5 10^3/ul (3.5-10.8)
[2018-07-01 09:26] LABS: EGFR Non-African American 4.6 (>60)
[2018-07-01] MEDS ORDERED: Heparin DIALYSIS ONLY(*) 1,000 UNITS/ML VIAL DIALYSIS ONE (12:00)
[2018-07-01] MEDS: Cholecalciferol TAB* 1000 UNITS PO SCH (15:28)
[2018-07-01] MEDS: Aspirin EC TAB* 81 MG TAB.EC PO SCH (15:28)
[2018-07-01] MEDS: amLODIPine TAB* 5 MG PO SCH (15:28)
--- NOTE | 2018-07-01 16:00 | PN ---
Subjective Date of Service: 07/01/18 Interval History: Pt is feeling ok today. He continues to have some pain in his R leg. He tolerated his dialysis treatment today. He did have a loose stool today. Objective Active Medications: Acetaminophen (Tylenol Tab*) 650 mg PO Q6HR [facility] Last Admin: 07/01/18 12:43 Dose: 650 mg Al Hydrox/Mg Hydrox/Simethicone (Maalox Plus*) 30 ml PO Q6H PRN PRN Reason: INDIGESTION Albuterol (Ventolin 2.5 Mg/3 Ml Neb.Lucia*) 2.5 mg INH Q6H PRN PRN Reason: SOB/WHEEZING Amlodipine Besylate (Norvasc Tab*) 5 mg PO DAILY [facility] Last Admin: 07/01/18 15:28 Dose: 5 mg Aspirin (Aspirin Ec Tab*) 81 mg PO DAILY [facility] Last Admin: 07/01/18 15:28 Dose: 81 mg Benzonatate (Tessalon Cap*) 100 mg PO TID [facility] Last Admin: 07/01/18 14:02 Dose: Not Given Calcium Acetate (Phoslo Cap*) 2,001 mg PO AC [facility] Cholecalciferol (Vitamin D Tab*) 1,000 units PO DAILY [facility] Last Admin: 07/01/18 15:28 Dose: 1,000 units Guaifenesin/Dextromethorphan (Robitussin Dm*) 5 ml PO Q6H PRN PRN Reason: COUGH Last Admin: 07/01/18 05:42 Dose: 5 ml Heparin Sodium (Porcine) (Heparin Vial(*)) 5,000 units SUBCUT Q8HR [facility] Last Admin: 07/01/18 15:29 Dose: Not Given Clindamycin HCl/Dextrose (Cleocin 600 Mg Ivpremix(*) Sdv) 600 mg in 50 mls @ 100 mls/hr IV Q8H [facility] Last Admin: 07/01/18 15:28 Dose: 100 mls/hr Tramadol HCl (Ultram*) 25 mg PO Q8H PRN PRN Reason: PAIN Last Admin: 06/30/18 22:09 Dose: 25 mg Vital Signs - 8 hr 07/01/18 08:00 Respiratory 14 Rate O2 Sat by Pulse 100 Oximetry Oxygen Devices in Use Now: None Appearance: Middle aged male sitting in a chair, NAD Eyes: No Scleral Icterus Ears/Nose/Mouth/Throat: Mucous Membranes Moist Respiratory: Symmetrical Chest Expansion and Respiratory Effort, Clear to Auscultation Cardiovascular: NL Sounds; No Murmurs; No JVD, RRR, - - 1+ LE edema Abdominal: NL Sounds; No Tenderness; No Distention Extremities: No Clubbing, Cyanosis Skin: No Nodules or Sclerosis, - - no erythema of R leg, minimal warmth to R LE Neurological: Alert and Oriented x 3 Result Diagrams: 07/01/18 08:24 07/01/18 08:24 Microbiology and Other Data: Microbiology 06/29/18 21:55 Aerobic Blood Culture - Preliminary Blood Venous Anaerobic Blood Culture - Preliminary No Growth Day 1 06/29/18 21:35 Aerobic Blood Culture - Preliminary Blood Venous No Growth Day 1 Anaerobic Blood Culture - Preliminary Blood MRSA/MSSA (PCR) - Final Mrsa Negative S.aureus Negative Assess/Plan/Problems-Billing Mr Govea is a 37 yo M with a h/o ESRD on HD, severe aortic regurgitation, hyperparathyroidism and HTN who presented to the ER with c/o R LE swelling, redness, warmth and pain and was admitted for treatment of a R LE cellulitis. - Patient Problems (1) Cellulitis of right leg Current Visit: Yes Status: Acute Code(s): L03.115 - CELLULITIS OF RIGHT LOWER LIMB SNOMED Code(s): 175749952 Comment: R LE cellulitis continues to improve. He would have been ready for d /c home today but 1 of 4 blood culture bottles came up positive for gram positive cocci. Will await final culture results and continue IV Abx. Likely home tomorrow as I suspect the positive blood culture is a contaminant. (2) Chest pain Current Visit: Yes Status: Acute Code(s): R07.9 - CHEST PAIN, UNSPECIFIED SNOMED Code(s): 35898504 Comment: Stress test showed a possible small area of ischemia at the apex. Will ask that the patient follow up with cardiology as an outpatient. (3) HTN (hypertension) Current Visit: Yes Status: Acute Code(s): I10 - ESSENTIAL (PRIMARY) HYPERTENSION SNOMED Code(s): 06038593 Comment: BP is slightly improved. Continue current medication regimen. (4) ESRD (end stage renal disease) Current Visit: Yes Status: Acute Code(s): N18.6 - END STAGE RENAL DISEASE SNOMED Code(s): 37219170 Comment: Continue HD ,, (5) DVT prophylaxis Current Visit: Yes Status: Acute Code(s): OTG5836 - SNOMED Code(s): 071326071 Comment: SQ heparin (6) Patient is full code Current Visit: Yes Status: Acute Code(s): Z78.9 - OTHER SPECIFIED HEALTH STATUS SNOMED Code(s): 715106423
[2018-07-02] MEDS: GuaiFENesin DM* 5 ML UDC PO PRN ×2 (02:29→08:44)
[2018-07-02] MEDS: Clindamycin 600 MG IVPREMIX(* 600 MG/50 ML SDV IV SCH ×2 (05:35→13:19)
[2018-07-02] MEDS: Acetaminophen TAB* 325 MG PO SCH ×2 (05:38→12:43)
[2018-07-02] MEDS: Heparin VIAL(*) 5000 UNITS/ML VIAL (FIVE THOUSAND) SUBCUT SCH (05:41)
[2018-07-02] MEDS: Cholecalciferol TAB* 1000 UNITS PO SCH (08:43)
[2018-07-02] MEDS: Calcium Acetate CAP* 667 MG PO SCH ×2 (08:43→12:43)
[2018-07-02] MEDS: amLODIPine TAB* 5 MG PO SCH (08:43)
[2018-07-02] MEDS: Aspirin EC TAB* 81 MG TAB.EC PO SCH (08:44)
[2018-07-02] MEDS: Benzonatate CAP* 100 MG PO SCH ×2 (08:44→18:15)
[2018-07-02] MEDS ORDERED: Heparin VIAL(*) 5000 UNITS/ML VIAL (FIVE THOUSAND) SUBCUT SCH (09:00)
[2018-07-02 12:12] VITALS: BP 124/35
--- NOTE | 2018-07-02 20:43 | DS ---
CC: Laureen Singh MD; Paramjit Barnhart MD* DISCHARGE SUMMARY: DATE OF ADMISSION: 06/30/18 DATE OF DISCHARGE: 07/02/18 DISCHARGE DIAGNOSES: 1. Right lower extremity cellulitis, improved. 2. Chest pain, acute coronary syndrome ruled out, resolved. 3. History of hypertension. 4. History of end-stage renal disease, on hemodialysis on Tuesdays, , and Saturdays. DISCHARGE MEDICATIONS: 1. Tylenol 650 mg p.o. q.6 p.r.n. 2. Aspirin 81 mg p.o. daily. 3. Benzonatate 100 mg p.o. t.i.d. 4. Calcium acetate 667 mg p.o. q.a.c. 5. Cholecalciferol 1000 units p.o. daily. 6. Tramadol 25 mg p.o. q.8 p.r.n. 7. Amlodipine 2.5 mg p.o. daily. 8. Clindamycin 300 mg p.o. q.6 for 8 more days. 9. Floranex 2 tabs p.o. daily for 14 days. HISTORY OF PRESENT ILLNESS/HOSPITAL COURSE: The patient is a 37-year-old - [place] gentleman with history of ESRD, on hemodialysis and history of previous illicit drug use and morbid obesity, who was admitted on 06/30/18 due to increasing swelling, warmth, and pain on the right lower extremity where he was diagnosed with cellulitis. He has been treated with IV clindamycin and cultures have been drawn and unfortunately, the results of the blood culture appears to be contaminated with Bacillus species non-anthracis and Staphylococcus warneri. Otherwise, the patient has defervesced, has been afebrile since his admission and is currently hemodynamically stable with improving right lower extremity cellulitis. He will be discharged home improved. He had been advised to follow up and/or call his PCP within 3 days post DC, and he was advised that if his symptoms resume or develop new ones or feel unwell for any reason, to call his PCP first and if his PCP cannot entertain him due to scheduling issues alone, to call [facility] if his issue is considered nonemergent. He was advised to call my office regarding any questions , concerns or further clarifications regarding his discharge plans and/or prescriptions and to take his medications as prescribed. REVIEW OF SYSTEMS: The patient currently denies any recent headaches, dizziness , fevers, chills, nausea, vomiting, chest pain, shortness of breath, increased cough and/or sputum production, abdominal pain, diarrhea, constipation, pain and /or increased frequency on urination, myalgias, arthralgias, throat pain or new skin lesions. The rest of the 14-point review of systems are otherwise unremarkable. PHYSICAL EXAMINATION: Shows the most recent vital signs of records with blood pressure of 124/35 from previous of 132/54 and 113/86, 98.2 degrees Fahrenheit temperature, 81 beats per minute heart rate, 20 per minute respiratory rate. General appearance: The patient is awake, alert, and oriented x3, not in acute distress. HEENT: Normocephalic, atraumatic. PERRLA, extraocular muscles intact, negative for icterus. Moist oral mucosa. Negative throat erythema. Neck is soft, supple with no cervical lymphadenopathy. No JVD. Heart: S1, S2 within normal limits. Regular rate and rhythm. No murmurs, rubs or gallops. Chest: Clear to auscultation bilaterally. Good air entry. No wheezes, rales or rhonchi. Abdomen: Soft, nondistended, nontender. Normoactive bowel sounds x4 quadrants. Extremities: No cyanosis or clubbing with 1+ bilateral lower extremity edema, difficult to assess given the patient's obesity. Psychiatric: No active psychosis, depression. No suicidal or homicidal ideation. Skin is warm to touch. TIME SPENT: The total time spent evaluating the patient, reviewing pertinent data and appropriate documentation is 40 minutes. [id number]/[facility] #: [id number] CHRISS
== END 2018-07-02 14:15 | disposition home or self-care (01) ==
LOC: ED 19:34 → MED 06-30 00:19
PROVIDERS: ADMIT Internal Medicine; ATTEND Student in an Organized Health Care Education/Training Program
DX: L03.115 Cellulitis of right lower limb (principal); R07.9 Chest pain, unspecified; I10 Essential (primary) hypertension; N18.6 End stage renal disease; Z99.2 Dependence on renal dialysis; Z79.82 Long term (current) use of aspirin; R06.02 Shortness of breath; R05 Cough
CPT/HCPCS: 36415; 71045; 78452; 80048; 80053; 80074; 82565; 83605; 83880; 84484; 84520; 85025; 85610; 85730; 86140; 86703; 87040; 87077; 87150; 87186; 87205; 93005; 93017; 93970; 96365; 96366; 96372; 96375; 96376; 99285; A9270-GY; A9502; G0378; J0280; J0885; J1644; J2543; J2785; J3010; J3370

== ENCOUNTER 2018-07-08 19:44 | Emergency (ER) | payer OTHER ==
[2018-07-08] MEDS ORDERED: Nicotine Inhaler* 10 MG AMP INH PRN (20:55)
[2018-07-08] MEDS ORDERED: guaiFENesin LIQ* 100 MG/5 ML UDC PO ONE (21:11)
[2018-07-08 22:03] LABS: ABS Basophils 0 10^3/ul (0-0.2); ABS Eosinophils 0.6 10^3/ul (0-0.6); ABS Lymphocytes 1.7 10^3/ul (1.0-4.8); ABS Monocytes 0.5 10^3/ul (0-0.8); ABS Neutrophils 2.2 10^3/ul (1.5-7.7); ABS Nucleated RBC 0 10^3/ul; Eosinophil % 11.5 %; Hematocrit 29 % (42-52); Hemoglobin 9.2 g/dl (14.0-18.0); Lymphocyte % 34.1 %; Mean Corpuscular HGB Conc 32 g/dl (31-36); Mean Corpuscular Hemoglobin 29 pg (27-31); Mean Corpuscular Volume 93 fL (80-94); Mean Platelet Volume 8.9 fL (7.4-10.4); Nucleated Red Blood Cells % 0.4; Platelet Count 227 10^3/ul (150-450); Red Blood Count 3.14 10^6/ul (4.00-5.40); Red Cell Distribution Width 19 % (10.5-15)
[2018-07-08 22:10] LABS: EGFR Non-African American 4.7 (>60)
[2018-07-08] MEDS ORDERED: Mouth Piece, Nicotine* 1 EACH CARTRIDGE INH ONE (23:00)
--- NOTE | 2018-07-09 02:47 | ED ---
Medical Screening - HPI Summary HPI Summary: Patient complains of thoughts of SI with no plan x 2 dayus. Patient states he is not happy where he is living currently and feels like he is frequently sick as a result of the dirt and bugs there. Patient states he is not eating as he cannot cook in the room. Complains of cough. Patient states he had diagnosed with cellulitis of right lower extremity couple weeks ago, but has not taking antibiotics, but states symptoms have resolved. Patient has history of renal failure on dialysis Friday//Friday. History of SI attempt 20 years ago. Denies recreational drug use, EtOH, nicotine. History of hypertension, depression, ESRD. - History of Current Complaint Chief Complaint: EDMentalHealth Stated Complaint: MHE/SI Time Seen by Provider: 07/08/18 20:54 Onset/Duration: Started Days Ago Severity: mild PMH/Surg Hx/FS Hx/Imm Hx Endocrine/Hematology History: Denies: Hx Diabetes Cardiovascular History: Reports: Hx Angina - Walking up hills Denies: Hx Hypertension Respiratory History: Denies: Hx Asthma, Hx Chronic Obstructive Pulmonary Disease (COPD) History: Reports: Hx Chronic Renal Failure, Hx Dialysis, Other Problems/ Disorders - ESRD Sensory History: Denies: Hx Contacts or Glasses, Hx Hearing Aid Opthamlomology History: Denies: Hx Contacts or Glasses Psychiatric History: Reports: Hx Depression Denies: Hx Eating Disorder, Hx of Violent Episodes Against Others - Surgical History Surgery Procedure, Year, and Place: none - Immunization History Immunizations Up to Date: Yes Infectious Disease History: No Infectious Disease History: Denies: Traveled Outside the [place] in Last 30 Days - Family History Known Family History: Positive: Diabetes - brother - Social History Alcohol Use: None Hx Substance Use: No Substance Use Type: Reports: None Hx Tobacco Use: No Smoking Status (MU): Never Smoked Tobacco Review of Systems Constitutional: Negative Eyes: Negative ENT: Negative Cardiovascular: Negative Positive: Cough Gastrointestinal: Negative Genitourinary: Negative Musculoskeletal: Negative Skin: Negative Neurological: Negative Psychological: Normal All Other Systems Reviewed And Are Negative: Yes Physical Exam - Summary Physical Exam Summary: Patient calm, speaking and responding appropriately. Does not appear depressed or sad. Patient seems more annoyed with his living conditions than anything else. Triage Information Reviewed: Yes Vital Signs On Initial Exam: Initial Vitals Temp Pulse Resp BP Pulse Ox 98.3 F 96 18 158/66 93 07/08/18 19:46 07/08/18 19:46 07/08/18 19:46 07/08/18 19:46 07/08/18 19:46 Vital Signs Reviewed: Yes Appearance: Positive: Well-Appearing Skin: Positive: Warm Head/Face: Positive: Normal Head/Face Inspection Eyes: Positive: Normal ENT: Positive: Normal ENT inspection Neck: Positive: Supple Respiratory/Lung Sounds: Positive: Clear to Auscultation Cardiovascular: Positive: Normal Abdomen Description: Positive: Nontender Musculoskeletal: Positive: Normal Neurological: Positive: Normal Psychiatric: Positive: Normal AVPU Assessment: Alert - Hurley Coma Scale Best Eye Response: 4 - Spontaneous Best Motor Response: 6 - Obeys Commands Best Verbal Response: 5 - Oriented Coma Scale Total: 15 Diagnostics - Vital Signs Vital Signs Temp Pulse Resp BP Pulse Ox 07/08/18 23:33 97.6 F 94 20 137/56 99 07/08/18 19:46 98.3 F 96 18 158/66 93 - Laboratory Lab Results: Lab Results 07/08/18 07/08/18 Range/Units 21:39 21:39 WBC 5.0 (3.5-10.8) 10^3/ul RBC 3.14 L (4.00-5.40) 10^6/ul Hgb 9.2 L (14.0-18.0) g/dl Hct 29 L (42-52) % MCV 93 (80-94) fL MCH 29 (27-31) pg MCHC 32 (31-36) g/dl RDW 19 H (10.5-15) % Plt Count 227 (150-450) 10^3/ul MPV 8.9 (7.4-10.4) fL Neut % (Auto) 44.7 % Lymph % (Auto) 34.1 % [place] % (Auto) 9.5 % Eos % (Auto) 11.5 % Baso % (Auto) 0.2 % Absolute Neuts (auto) 2.2 (1.5-7.7) 10^3/ul Absolute Lymphs (auto) 1.7 (1.0-4.8) 10^3/ul Absolute Monos (auto) 0.5 (0-0.8) 10^3/ul Absolute Eos (auto) 0.6 (0-0.6) 10^3/ul Absolute Basos (auto) 0 (0-0.2) 10^3/ul Absolute Nucleated RBC 0 10^3/ul Nucleated RBC % 0.4 Sodium 142 (135-145) mmol/L Potassium 4.5 (3.5-5.0) mmol/L Chloride 99 L (101-111) mmol/L Carbon Dioxide 28 (22-32) mmol/L Anion Gap 15 H (2-11) mmol/L BUN 42 H (6-24) mg/dL Creatinine 12.17 H (0.67-1.17) mg/dL Est GFR ( Amer) 5.6 (>60) Est GFR (Non-Af Amer) 4.7 (>60) BUN/Creatinine Ratio 3.5 L (8-20) Glucose 93 (70-100) mg/dL Calcium 9.2 (8.6-10.3) mg/dL Total Bilirubin 0.60 (0.2-1.0) mg/dL AST 35 (13-39) U/L ALT 40 (7-52) U/L Alkaline Phosphatase 61 (34-104) U/L Total Protein 6.7 (6.4-8.9) g/dL Albumin 3.7 (3.2-5.2) g/dL Globulin 3.0 (2-4) g/dL Albumin/Globulin Ratio 1.2 (1-3) TSH 3.10 (0.34-5.60) mcIU/mL Salicylates < 2.50 (<30) mg/dL Acetaminophen < 15 mcg/mL Serum Alcohol < 10 (<10) mg/dL Result Diagrams: 07/08/18 21:39 07/08/18 21:39 Lab Statement: Any lab studies that have been ordered have been reviewed, and results considered in the medical decision making process. Course/Dx - Course Course Of Treatment: Patient complains of thoughts of SI with no plan x 2 dayus. Patient states he is not happy where he is living currently and feels like he is frequently sick as a result of the dirt and bugs there. Patient states he is not eating as he cannot cook in the room. Complains of cough. Patient states he had diagnosed with cellulitis of right lower extremity couple weeks ago, but has not taking antibiotics, but states symptoms have resolved. Patient has history of renal failure on dialysis Friday//Friday. History of SI attempt 20 years ago. Denies recreational drug use, EtOH, nicotine. History of hypertension, depression, ESRD. Patient states he went to dialysis yesterday. Physical exam:Patient calm, speaking and responding appropriately. Does not appear depressed or sad. Patient seems more annoyed with his living conditions than anything else. Physical exam unremarkable. Vital signs within normal limits and stable. Labs are patient baseline. Chest x-ray negative. - Diagnoses Provider Diagnoses: Anxiety Discharge - Sign-Out/Discharge Documenting (check all that apply): Sign-Out Patient Signing out patient TO: Barney Duran - Discharge Plan Condition: Stable Disposition: HOME Patient Education Materials: Anxiety (ED) Referrals: No Primary Care Phys,NOPCP [Primary Care Provider] - Additional Instructions: Per completion of a mental health evaluation, you are cleared for release and do not require inpatient psychiatric hospitalization at this time. Please go to nearest emergency room or call 911 if safety concerns arise or condition worsens. IMPORTANT PHONE NUMBERS: [facility] Behavioral Services Unit: [facility] Emergency Room Flex Unit: Suicide Prevention and Crisis Services: The Chat: Text (free and confidential online crisis service sponsored by [facility] Suicide Prevention, available Friday-Friday 6pm 9pm) National Suicide Prevention Lifeline: (652) 221-KIZU (4435) National Crisis Text Line: Text KVNG to 747128 [facility] Mental Health Clinic: [facility] Outreach for Older Adults: [facility] Mental Health Association: [facility]: Department of Bench Hand: [place] [employer] [place]: [facility] Community Action: [place] Housing Authority: [facility] Services: [facility] Housing Services: [facility] Police: [facility] Sheriff: [place] [employer] Department: OUTPATIENT SERVICES You have been referred to [facility]. It is our recommendation that you call [facility] to confirm your appointment as previously scheduled for July 15, 2018 with Kee as you indicated during your evaluation. If you require further assistance connecting to outpatient providers, please contact our Mental Health Unit at [phone]. No changes or adjustments were made to your medication regimen during this evaluation. Continue medications as prescribed by your outpatient providers. [facility] [address], [place] [address] - Billing Disposition and Condition Condition: STABLE Disposition: Home
--- NOTE | 2018-07-09 07:31 | ED ---
Progress - Progress Note Progress Note: This patient was recieved from Dr. Duran on shift change as a mental health hold. Pt was seen by Dr. Garrett and deemed stable to be discharged home with a dx of anxiety. Pt will f/u with dialysis and outpatient mental health. - Consult/PCP Time Called: 03:00 Course/Dx - Course Course Of Treatment: This patient was recieved from Dr. Duran on shift change as a mental health hold. Pt was seen by Dr. Garrett and deemed stable to be discharged home with a dx of anxiety. Pt will f/u with dialysis and outpatient mental health - Diagnoses Provider Diagnoses: Anxiety Discharge - Sign-Out/Discharge Documenting (check all that apply): Patient Departure, Receiving Sign-Out Receiving patient FROM: Barney Duran - Discharge Plan Condition: Stable Disposition: HOME Patient Education Materials: Anxiety (ED) Referrals: No Primary Care Phys,NOPCP [Primary Care Provider] - Additional Instructions: Per completion of a mental health evaluation, you are cleared for release and do not require inpatient psychiatric hospitalization at this time. Please go to nearest emergency room or call 911 if safety concerns arise or condition worsens. IMPORTANT PHONE NUMBERS: [facility] Behavioral Services Unit: [facility] Emergency Room Flex Unit: Suicide Prevention and Crisis Services: The Chat: Text (free and confidential online crisis service sponsored by [facility] Suicide Prevention, available Friday-Friday 6pm 9pm) National Suicide Prevention Lifeline: (673) 314-VGCE (8075) National Crisis Text Line: Text KVNG to 422248 [facility] Mental Health Clinic: [facility] Outreach for Older Adults: [facility] Mental Health Association: [facility]: Department of Film Archivist: [place] [facility] [place]: [facility] Action: [facility] Authority: [facility] Services: [facility] Services: [facility] Police: [facility] Sheriff: [place] [employer] Department: OUTPATIENT SERVICES You have been referred to [facility]. It is our recommendation that you call [facility] to confirm your appointment as previously scheduled for July 15, 2018 with Kee as you indicated during your evaluation. If you require further assistance connecting to outpatient providers, please contact our Mental Health Unit at . No changes or adjustments were made to your medication regimen during this evaluation. Continue medications as prescribed by your outpatient providers. [facility] [address] [place], [place] [address] - Billing Disposition and Condition Condition: STABLE Disposition: Home - Attestation Statements Document Initiated by Vidhi: Yes Documenting Scribe: Wes Gray Provider For Whom Vidhi is Documenting (Include Credential): Deborah Cota MD Scribe Attestation: IWes , scribed for Deborah Cota MD on 07/15/18 at 1001. Scribe Documentation Reviewed: Yes Provider Attestation: The documentation as recorded by the Wes yoder accurately reflects the service I personally performed and the decisions made by , Deborah Cota MD Status of Scribe Document: Viewed
[2018-07-09 09:06] VITALS: BP 138/63
--- NOTE | 2018-07-10 17:28 | ED ---
Progress - Progress Note Progress Note: This patient was recieved from Dr. Duran on shift change as a mental health hold. Pt was seen by Dr. Garrett and deemed stable to be discharged home with a dx of anxiety. Pt will f/u with dialysis and outpatient mental health. UPDATE: Final radiology report indicates cardiomegaly however this is not an acute finding and will not change the patient's course of care. No further action at this time. - Consult/PCP Time Called: 03:00 Course/Dx - Course Course Of Treatment: This patient was recieved from Dr. Duran on shift change as a mental health hold. Pt was seen by Dr. Garrett and deemed stable to be discharged home with a dx of anxiety. Pt will f/u with dialysis and outpatient mental health - Diagnoses Provider Diagnoses: Anxiety Discharge - Sign-Out/Discharge Documenting (check all that apply): Post-Discharge Follow Up - Discharge Plan Condition: Stable Disposition: HOME Patient Education Materials: Anxiety (ED) Referrals: No Primary Care Phys,NOPCP [Primary Care Provider] - Additional Instructions: Per completion of a mental health evaluation, you are cleared for release and do not require inpatient psychiatric hospitalization at this time. Please go to nearest emergency room or call 911 if safety concerns arise or condition worsens. IMPORTANT PHONE NUMBERS: [facility] Behavioral Services Unit: [facility] Emergency Room Flex Unit: Suicide Prevention and Crisis Services: The Chat: Text (free and confidential online crisis service sponsored by [facility] Suicide Prevention, available Friday-Friday 6pm 9pm) National Suicide Prevention Lifeline: (245) 298-GPBO (4596) National Crisis Text Line: Text NOELO to 401921 [facility] Mental Health Clinic: [facility] Outreach for Older Adults: [facility] Mental Health Association: [facility]: Department of Mud Tank Operator: [place] [facility] [place]: [facility] Action: [facility] Authority: [facility] Services: [facility] Housing Services: [place] [employer] Police: [facility] Sheriff: [place] [employer] Department: OUTPATIENT SERVICES You have been referred to [facility]. It is our recommendation that you call [facility] to confirm your appointment as previously scheduled for July 15, 2018 with Kee as you indicated during your evaluation. If you require further assistance connecting to outpatient providers, please contact our Mental Health Unit at [phone]. No changes or adjustments were made to your medication regimen during this evaluation. Continue medications as prescribed by your outpatient providers. [facility] [address] [place], [place] [address] - Billing Disposition and Condition Condition: STABLE Disposition: Home
== END 2018-07-09 09:44 | disposition home or self-care (01) ==
LOC: ED 19:44
DX: F41.9 Anxiety disorder, unspecified (principal); I51.7 Cardiomegaly; N18.6 End stage renal disease; Z99.2 Dependence on renal dialysis
CPT/HCPCS: 36415; 71046; 80053; 80320; 80329; 84443; 85025; 99284; A9270-GY; G0480

== ENCOUNTER 2018-07-29 15:40 | Emergency (ER) | payer SELFPAY ==
[2018-07-29] MEDS ORDERED: Albuterol/Ipratropium NEB.SOL* Albuterol 2.5 MG/Ipratropium 0.5 MG 3 ML INH ONE (15:54)
[2018-07-29] MEDS ORDERED: methylPREDNISolone 125 MG* 2 ML VIAL IV ONE (15:54)
[2018-07-29] MEDS ORDERED: Furosemide IV* 10 MG/ML 10 ML VIAL (100 MG) IV ONE (15:54)
--- NOTE | 2018-07-29 15:59 | ED ---
Shortness of Breath - HPI Summary HPI Summary: This pt is a 37 y/o male [place] [facility] [place] since yesterday. Pt reports he had hemodialysis yesterday for approximately 4 hours and requested to have an extra treatment because he felt "heavy." He notes that upon returning home yesterday after dialysis he had SOB and chest pain. Today he c/o persistent SOB and chest pain. Additionally pt has nonproductive cough and edema. Pt reports he "sometimes" urinates. Denies fever, chills, nausea, vomiting, headache. His haul cane brakeman is Dr. Saeed. - History of Current Complaint Chief Complaint: EDShortnessOfBreath Time Seen by Provider: 07/29/18 15:48 Hx Obtained From: Patient Onset/Duration: Lasting Hours, Still Present Current Severity: Moderate Dyspnea At: Rest Aggrevating Factors: Nothing Alleviating Factors: Nothing Associated Signs & Symptoms: Cough (Nonproductive), Wheezing, Chest Pain w/Cough , Edema - Allergy/Home Medications Allergies/Adverse Reactions: Allergies Allergy/AdvReac Type Severity Reaction Status Date / Time morphine Allergy Hallucinati Verified 07/08/18 19:50 ons PMH/Surg Hx/FS Hx/Imm Hx Endocrine/Hematology History: Denies: Hx Diabetes Cardiovascular History: Reports: Hx Angina - Walking [place] Denies: Hx Hypertension Respiratory History: Denies: Hx Asthma, Hx Chronic Obstructive Pulmonary Disease (COPD) History: Reports: Hx Chronic Renal Failure, Hx Dialysis, Other Problems/ Disorders - ESRD Sensory History: Denies: Hx Contacts or Glasses, Hx Hearing Aid Opthamlomology History: Denies: Hx Contacts or Glasses Psychiatric History: Reports: Hx Depression Denies: Hx Eating Disorder, Hx of Violent Episodes Against Others - Surgical History Surgery Procedure, Year, and Place: none Infectious Disease History: No Infectious Disease History: Denies: Traveled Outside the [place] in Last 30 Days - Family History Known Family History: Positive: Diabetes - brother - Social History Alcohol Use: None Hx Substance Use: No Substance Use Type: Reports: None Hx Tobacco Use: No Smoking Status (MU): Never Smoked Tobacco Review of Systems Negative: Fever, Chills Positive: Chest Pain Positive: Shortness Of Breath, Cough Negative: Vomiting, Nausea Negative: Headache All Other Systems Reviewed And Are Negative: Yes Physical Exam - Summary Physical Exam Summary: Appearance: Well appearing, no pain distress Skin: warm, dry, reflects adequate perfusion Head/face: normal Eyes: EOMI, THAD ENT: normal Neck: supple, nontender Respiratory: bilateral wheeze Cardiovascular: RRR, pulses symmetrical Abdomen: nontender, soft Musculoskeletal: strength/ROM intact. Fistula on the left arm. Pedal edema bilaterally. Neuro: normal, sensory motor intact, A&Ox3 Triage Information Reviewed: Yes Vital Signs On Initial Exam: Initial Vitals Temp Pulse Resp BP Pulse Ox 96.9 F 93 18 159/64 96 07/29/18 15:41 07/29/18 15:41 07/29/18 15:41 07/29/18 15:41 07/29/18 15:41 Vital Signs Reviewed: Yes Diagnostics - Vital Signs Vital Signs Temp Pulse Resp BP Pulse Ox 07/29/18 15:41 96.9 F 93 18 159/64 96 - Laboratory Result Diagrams: 07/29/18 16:06 07/29/18 16:06 Lab Statement: Any lab studies that have been ordered have been reviewed, and results considered in the medical decision making process. - Radiology Chest XR Radiology Interpretation Completed By: Radiologist Summary of Radiographic Findings: IMPRESSION: Chest x-ray findings are most consistent with cardiogenic pulmonary edema with a degree of cardiomegaly similar to the July 08, 2018 chest x-ray. Dr. Gatica has reviewed this report. - EKG 16:01 Cardiac Rate: NL EKG Rhythm: Sinus Rhythm Summary of EKG Findings: Nonspecific ST-T wave changes Re-Evaluation - Re-Evaluation First Eval Re-Evaluation Time: 18:27 Comment: I discussed with the pt that he needs to be transferred to another hospital for dialysis as Dr. Saeed is not answering his pages. Pt declines. He states he is having dialysis tomorrow and would like to be discharged home. Course/Dx - Course Assessment/Plan: Pt is a 37 y/o male, on hemodialysis (last session was yesterday), who presents with SOB and chest pain since yesterday. Pt requested to have an extra treatment yesterday because he felt "heavy." Additionally has cough and edema. Blood work, chest XR, EKG were obtained. Chest XR shows findings are most consistent with cardiogenic pulmonary edema with a degree of cardiomegaly similar to the July 08, 2018 chest x-ray. In the ED course the pt was given duoneb, lasix, solu-medrol. Dr. Saeed was paged multiple times for more than 1 hour and he did not answer. I discussed with the pt that he will need to be transferred for dialysis as Dr. Saeed is not answering. Pt declines at this time. He states he is having dialysis tomorrow and would like to be discharged home. Pt will be discharged home with follow up from Dr. Saeed. He is instructed to return to the ED for any worsening or new symptoms. - Diagnoses Differential Diagnosis/HQI/PQRI: Positive: CHF, Other - esrd on hd Provider Diagnoses: End-stage renal disease on hemodialysis, Dyspnea Discharge - Sign-Out/Discharge Documenting (check all that apply): Patient Departure - Discharge home - Discharge Plan Condition: Stable Disposition: HOME Patient Education Materials: Dyspnea (ED), End Stage Kidney Disease (ED) Referrals: Mariano Saeed MD [Medical Doctor] - Additional Instructions: Please follow up with Dr. Saeed. Go to dialysis tomorrow as scheduled. RETURN TO THE ED FOR ANY WORSENING OR NEW SYMPTOMS. - Billing Disposition and Condition Condition: STABLE Disposition: Home - Attestation Statements Document Initiated by Harshilibflorecita: Yes Documenting Scribe: Sherie Renee Provider For Whom Vidhi is Documenting (Include Credential): Ramos Gatica MD Scribe Attestation: Sherie Mcgregor, scribed for Ramos Gatica MD on 07/29/18 at 1834. Scribe Documentation Reviewed: Yes Provider Attestation: The documentation as recorded by the Sherie yoder accurately reflects the service I personally performed and the decisions made by me, Ramos Gatica MD Status of Scribe Document: Viewed
[2018-07-29 16:17] LABS: ABS Basophils 0.1 10^3/ul (0-0.2); ABS Eosinophils 0.9 10^3/ul (0-0.6); ABS Lymphocytes 1.5 10^3/ul (1.0-4.8); ABS Monocytes 0.4 10^3/ul (0-0.8); ABS Neutrophils 2.4 10^3/ul (1.5-7.7); ABS Nucleated RBC 0 10^3/ul; Eosinophil % 17.5 %; Hematocrit 31 % (42-52); Hemoglobin 9.9 g/dl (14.0-18.0); Lymphocyte % 27.7 %; Mean Corpuscular HGB Conc 32 g/dl (31-36); Mean Corpuscular Hemoglobin 29 pg (27-31); Mean Corpuscular Volume 92 fL (80-94); Mean Platelet Volume 8.4 fL (7.4-10.4); Nucleated Red Blood Cells % 0; Platelet Count 158 10^3/ul (150-450); Red Blood Count 3.38 10^6/ul (4.00-5.40); Red Cell Distribution Width 18 % (10.5-15); White Blood Count 5.3 10^3/ul (3.5-10.8)
[2018-07-29 16:29] LABS: Activated Partial Thrombo Time 34.8 seconds (26.0-36.3); INR 1.11 (0.77-1.02)
[2018-07-29 16:33] LABS: Albumin 3.7 g/dL (3.2-5.2); Albumin/Globulin Ratio 1.2 (1-3); BUN/Creatinine Ratio 3.7 (8-20); Calcium 9.2 mg/dL (8.6-10.3); EGFR Non-African American 5.7 (>60); Potassium 4.5 mmol/L (3.5-5.0); Total Bilirubin 0.5 mg/dL (0.2-1.0); Total Protein 6.7 g/dL (6.4-8.9)
[2018-07-29 18:45] VITALS: BP 159/67
== END 2018-07-29 18:45 | disposition home or self-care (01) ==
LOC: ED 15:40
DX: N18.6 End stage renal disease (principal); R06.00 Dyspnea, unspecified; Z99.2 Dependence on renal dialysis; R05 Cough; R07.9 Chest pain, unspecified; R60.0 Localized edema; R06.02 Shortness of breath
CPT/HCPCS: 36415; 71045; 80053; 83605; 83880; 84484; 85025; 85610; 85730; 93005; 96374; 96375; 99283; A9270-GY; J1940; J2930

== ENCOUNTER 2018-08-05 03:28 | Emergency (ER) | payer MEDICAID, OTHER ==
[2018-08-05] MEDS ORDERED: Metoclopramide IV* 5 MG/ML 2 ML VIAL IV SLOW PU ONE (03:50)
[2018-08-05] MEDS ORDERED: Morphine VIAL* 4 MG/ML VIAL (1 ml vial) IV ONE (03:50)
[2018-08-05] MEDS ORDERED: Pantoprazole IV* 40 MG IV ONE (03:51)
[2018-08-05] MEDS ORDERED: Aspirin 81 mg CHEW TAB* 81 MG TAB.CHEW PO ONE (03:51)
--- NOTE | 2018-08-05 03:57 | ED ---
HPI Chest Pain - HPI Summary HPI Summary: This patient is a 37 year old M presenting to [facility] with a chief complaint of chest pain since yesterday morning. Patient states he felt pressure in his chest and was unable to sleep. He rates his pain 10/10 in severity. Patient is on dialysis and had his last one two days ago. His next one is scheduled for tomorrow. He states the patient does not radiate anywhere else, except his stomach for a short period of time. He describes the pain as sharp. Patient states he has chest pain when he walks up hills. He states he does not take cardiac medication. Patient was here one month ago for a similar complaint and had a stress test that was negative. - History of Current Complaint Chief Complaint: EDChestPainROMI Hx Obtained From: Patient Onset/Duration: Started Days Ago Timing: Constant Pain Intensity: 10 Pain Scale Used: 0-10 Numeric Chest Pain Radiates: Yes Chest Pain Radiates To:: Epigastric Character: Sharp/Stabbing Aggravating Factor(s): Movement Alleviating Factor(s): Nothing - Additional Pertinent History Primary Care Physician: PARVIZ - Allergy/Home Medications Allergies/Adverse Reactions: Allergies Allergy/AdvReac Type Severity Reaction Status Date / Time morphine Allergy Hallucinati Verified 08/05/18 03:44 ons PMH/Surg Hx/FS Hx/Imm Hx Endocrine/Hematology History: Denies: Hx Diabetes Cardiovascular History: Reports: Hx Angina - Walking [place] Denies: Hx Hypertension Respiratory History: Denies: Hx Asthma, Hx Chronic Obstructive Pulmonary Disease (COPD) History: Reports: Hx Chronic Renal Failure, Hx Dialysis, Other Problems/ Disorders - ESRD Sensory History: Denies: Hx Contacts or Glasses, Hx Hearing Aid Opthamlomology History: Denies: Hx Contacts or Glasses Psychiatric History: Reports: Hx Depression Denies: Hx Eating Disorder, Hx of Violent Episodes Against Others - Surgical History Surgery Procedure, Year, and Place: none - Immunization History Date of Tetanus Vaccine: unk Date of Influenza Vaccine: fall 2017 Infectious Disease History: No Infectious Disease History: Denies: Traveled Outside the [place] in Last 30 Days - Family History Known Family History: Positive: Diabetes - brother - Social History Alcohol Use: None Hx Substance Use: No Substance Use Type: Reports: None Hx Tobacco Use: No Smoking Status (MU): Never Smoked Tobacco Review of Systems Positive: Chest Pain Positive: Abdominal Pain All Other Systems Reviewed And Are Negative: Yes Physical Exam - Summary Physical Exam Summary: VITAL SIGNS: Reviewed. GENERAL: Patient is a well-developed and nourished MALE who is lying comfortable in the stretcher. Patient is not in any acute respiratory distress. HEAD AND FACE: No signs of trauma. No ecchymosis, hematomas or skull depressions. No sinus tenderness. EYES: PERRLA, EOMI x 2, No injected conjunctiva, no nystagmus. EARS: Hearing grossly intact. Ear canals and tympanic membranes are within normal limits. MOUTH: Oropharynx within normal limits. NECK: Supple, trachea is midline, no adenopathy, no JVD, no carotid bruit, no c- spine tenderness, neck with full ROM. CHEST: Symmetric, no tenderness at palpation LUNGS: Clear to auscultation bilaterally. No wheezing or crackles. CVS: Regular rate and rhythm, S1 and S2 present, 2 over 6 systolic murmur on left sternal border. ABDOMEN: Soft, non-tender. Abdominal distention. No rebound no guarding, and no masses palpated. Bowel sounds are normal. EXTREMITIES: FROM in all major joints, trace bilateral pedal edema, no cyanosis or clubbing. Dialysis shunt on left forearm. NEURO: Alert and oriented x 3. No acute neurological deficits. Speech is normal and follows commands. SKIN: Dry and warm Triage Information Reviewed: Yes Vital Signs On Initial Exam: Initial Vitals Temp Pulse Resp BP Pulse Ox 97.7 F 89 18 138/59 100 08/05/18 03:30 08/05/18 03:30 08/05/18 03:30 08/05/18 03:30 08/05/18 03:30 Vital Signs Reviewed: Yes Diagnostics - Vital Signs Vital Signs Temp Pulse Resp BP Pulse Ox 08/05/18 03:30 97.7 F 89 18 138/59 100 - Laboratory Lab Statement: Any lab studies that have been ordered have been reviewed, and results considered in the medical decision making process. - EKG 0353 Cardiac Rate: NL EKG Rhythm: Sinus Rhythm - [address] Segment: Non-Specific EKG Comparison: No Significant Change - 07/29/18 Chest Pain Course/Dx - Course Course Of Treatment: This patient is a 37 year old M presenting to [facility] with a chief complaint of chest pain since yesterday morning. The roundhouse worker was unable to draw blood due to lack of vein access. U/S assistance to find vein in peripheral RUE was attempted but did not work. Patient refused external jugular access. Patient wanted to be discharged against medical advice. ED Physician explained risk of leaving including ut not limited to heart attack, permament disability, and . Patient was then discharged. - Diagnoses Provider Diagnoses: Chest pain Discharge - Sign-Out/Discharge Documenting (check all that apply): Patient Departure - Discharge Plan Condition: Stable Disposition: AGAINST MEDICAL ADVICE Patient Education Materials: Chest Pain (ED) [place]errals: [facility] [place]] Additional Instructions: Return with any new or worsening symptoms. - Attestation Statements Document Initiated by Scribe: Yes Documenting Scribe: Archie Newell Provider For Whom Scribe is Documenting (Include Credential): Paramjit Barnhart MD Scribe Attestation: Archie Mcgregor, scribed for Paramjit Barnhart MD on 08/05/18 at 0558. Status of Scribe Document: Ready
[2018-08-05 06:12] VITALS: BP 0/0
== END 2018-08-05 06:11 | disposition left against medical advice (07) ==
LOC: ED 03:28
DX: R07.89 Other chest pain (principal); R10.13 Epigastric pain; N18.6 End stage renal disease; Z99.2 Dependence on renal dialysis; Z88.5 Allergy status to narcotic agent; Z83.3 Family history of diabetes mellitus
CPT/HCPCS: 93005; 99282; A9270-GY

== ENCOUNTER 2018-08-19 12:35 | Inpatient (IN) | payer OTHER ==
--- NOTE | 2018-08-19 13:28 | ED ---
HPI Chest Pain - HPI Summary HPI Summary: The patient is a 37 y/o M presenting to [facility] with a chief complaint of diffuse CP and SOB with exertion associated with frequent episodes of blacking out today. He reports that while he is walking either downtown or up the hill, he begins to see darkness, but he does not have any syncopal episodes. During these experiences, he has CP and SOB, but he denies nausea and vomiting. To stop his symptoms, he sits down and waits until he is able to see again. Currently, his pain is rated 4/10 in severity. He denies previous NE, but he does have a leaky valve. He receives dialysis for chronic renal failure on Tuesdays, , and Saturdays, with his last treatment yesterday. No hx of diabetes, HTN, or HLD. - History of Current Complaint Chief Complaint: EDChestPainROMI Time Seen by Provider: 08/19/18 12:54 Hx Obtained From: Patient Onset/Duration: Started Hours Ago, Resolved Initial Severity: Moderate Current Severity: Mild Pain Intensity: 4 Pain Scale Used: 0-10 Numeric Chest Pain Location: Diffuse Chest Pain Radiates: No Character: Exertion Aggravating Factor(s): Exertion Alleviating Factor(s): Rest Associated Signs and Symptoms: Positive: Chest Pain, Vision Changes - darkness, Shortness of Breath, Other: - NEGATIVE: syncope. Negative: Nausea, Vomiting - Additional Pertinent History Primary Care Physician: [id number] - Allergy/Home Medications Allergies/Adverse Reactions: Allergies Allergy/AdvReac Type Severity Reaction Status Date / Time morphine Allergy Hallucinati Verified 08/19/18 12:42 ons PMH/Surg Hx/FS Hx/Imm Hx Endocrine/Hematology History: Denies: Hx Diabetes Cardiovascular History: Reports: Hx Angina - Walking [place] Denies: Hx Hypercholesterolemia, Hx Hypertension Respiratory History: Denies: Hx Asthma, Hx Chronic Obstructive Pulmonary Disease (COPD) History: Reports: Hx Chronic Renal Failure, Hx Dialysis, Other Problems/ Disorders - ESRD Sensory History: Denies: Hx Contacts or Glasses, Hx Hearing Aid Opthamlomology History: Denies: Hx Contacts or Glasses Psychiatric History: Reports: Hx Depression Denies: Hx Eating Disorder, Hx of Violent Episodes Against Others - Surgical History Surgery Procedure, Year, and Place: none - Immunization History Date of Tetanus Vaccine: unk Date of Influenza Vaccine: fall 2017 Infectious Disease History: No Infectious Disease History: Denies: Traveled Outside the [place] in Last 30 Days - Family History Known Family History: Positive: Diabetes - brother - Social History Alcohol Use: None Hx Substance Use: No Substance Use Type: Reports: None Hx Tobacco Use: No Smoking Status (MU): Never Smoked Tobacco Review of Systems Positive: Chest Pain Positive: Shortness Of Breath Negative: Vomiting, Nausea Neurological: Other - episodes of 'blacking out/darkness' without syncope All Other Systems Reviewed And Are Negative: Yes Physical Exam - Summary Physical Exam Summary: VITAL SIGNS: Reviewed. GENERAL: Patient is a well-developed and nourished male who is lying comfortable in the stretcher. Patient is not in any acute respiratory distress. HEAD AND FACE: No signs of trauma. No ecchymosis, hematomas or skull depressions. No sinus tenderness. EYES: PERRLA, EOMI x 2, No injected conjunctiva, no nystagmus. EARS: Hearing grossly intact. Ear canals and tympanic membranes are within normal limits. MOUTH: Oropharynx within normal limits. NECK: Supple, trachea is midline, no adenopathy, no JVD, no carotid bruit, no c- spine tenderness, neck with full ROM. CHEST: Symmetric, no tenderness at palpation LUNGS: Clear to auscultation bilaterally. No wheezing or crackles. CVS: Regular rate and rhythm, S1 and S2 present, no murmurs or gallops appreciated. ABDOMEN: Soft, non-tender. No signs of distention. No rebound no guarding, and no masses palpated. Bowel sounds are normal. EXTREMITIES: FROM in all major joints, no edema, no cyanosis or clubbing. AV fistula in left arm. NEURO: Alert and oriented x 3. No acute neurological deficits. Speech is normal and follows commands. SKIN: Dry and warm Triage Information Reviewed: Yes Vital Signs On Initial Exam: Initial Vitals Temp Pulse Resp BP Pulse Ox 97.3 F 95 22 138/59 99 08/19/18 12:36 08/19/18 12:36 08/19/18 12:36 08/19/18 12:36 08/19/18 12:36 Vital Signs Reviewed: Yes Diagnostics - Vital Signs Vital Signs Temp Pulse Resp BP Pulse Ox 08/19/18 12:36 97.3 F 95 22 138/59 99 - Laboratory Result Diagrams: 08/19/18 13:55 08/19/18 13:55 Lab Statement: Any lab studies that have been ordered have been reviewed, and results considered in the medical decision making process. - Radiology CXR Radiology Interpretation Completed By: Radiologist Summary of Radiographic Findings: Cardiomegaly with no evidence of active cardiopulmonary disease. ED physician has reviewed this report. - EKG 12:44 Cardiac Rate: NL - 89 BPM EKG Rhythm: Sinus Rhythm Summary of EKG Findings: T wave inversions in 2, 3, V4-V6 leads. Re-Evaluation - Re-Evaluation First Eval Re-Evaluation Time: 13:05 Change: Unchanged Comment: I spoke with the patient concerning results and admission to [facility] [place]. Chest Pain Course/Dx - Course Course Of Treatment: The patient was found to have increased BP in the ED. The patient will follow up with PCP for better control of BP. Assessment/Plan: The patient is a 37 y/o M [facility] [place] [facility] [place] a chief complaint of diffuse CP and SOB with exertion associated with frequent episodes of blacking out today. He reports that while he is walking either downtown or up the hill, he begins to see darkness, but he does not have any syncopal episodes. During these experiences, he has CP and SOB, but he denies nausea and vomiting. To stop his symptoms, he sits down and waits until he is able to see again. Currently, his pain is rated 4/10 in severity. He denies previous NE, but he does have a leaky valve. He receives dialysis for chronic renal failure on Tuesdays, , and Saturdays, with his last treatment yesterday. No hx of diabetes, HTN, or HLD. Blood work without any significant abnormality except for a slight anemia, potassium is 5.2, BUNs 41 and creatinine is 10. Troponin is 0.01, and BNP is 3555. At this point I discussed my findings and test results with Dr. Benton from cardiology and she recommends for the patient to get an ECHO stress test. I also discussed the case with who accepts the patient for admission. - Chest Pain Differential Diagnosis/HQI/PQRI: Acute NE, ACS, Angina, CHF, Chest Wall, GI Disease, Lower Respiratory Infection - Diagnoses Provider Diagnoses: Chest pain - Provider Notifications Discussed Care Of Patient With: Mariano Saeed - nephrology Time Discussed With Above Provider: 13:48 Instructed by Provider To: Other - I consulted with Dr. Saeed concerning patient's condition. I also spoke with Dr. Tillman, hospitalist, who accepts the patient for admission at 15:05. Discharge - Sign-Out/Discharge Documenting (check all that apply): Patient Departure - Patient will be admitted to [facility] for further care by Dr. Tillman. - Discharge Plan Condition: Stable Disposition: ADMITTED TO [facility] Referrals: [facility] [place] [facility] [Outside] - 1 Week Additional Instructions: FOLLOW UP WITH YOUR PRIMARY CARE PROVIDER WITHIN 2-3 DAYS FOR HIGH BLOOD PRESSURE NOTED TODAY. RETURN TO THE ED FOR ANY WORSENING OR NEW SYMPTOMS. - Billing Disposition and Condition Condition: STABLE Disposition: Admitted to [facility] - Attestation Statements Document Initiated by Vidhi: Yes Documenting Scribe: Justyna Salgado Provider For Whom Vidhi is Documenting (Include Credential): Dr. Zhou Gao MD Scribe Attestation: I, Justyna Salgado, scribed for Dr. Zhou Gao MD on 08/19/18 at 1546. Scribe Documentation Reviewed: Yes Provider Attestation: The documentation as recorded by the Justyna yoder accurately reflects the service I personally performed and the decisions made by me, Dr. Zhou Gao MD Status of Scribflorecita Document: Viewed
[2018-08-19 14:18] LABS: ABS Basophils 0.1 10^3/ul (0-0.2); ABS Eosinophils 0.4 10^3/ul (0-0.6); ABS Lymphocytes 1.3 10^3/ul (1.0-4.8); ABS Monocytes 0.4 10^3/ul (0-0.8); ABS Neutrophils 2.2 10^3/ul (1.5-7.7); ABS Nucleated RBC 0 10^3/ul; Eosinophil % 8.9 %; Hematocrit 32 % (42-52); Hemoglobin 10.4 g/dl (14.0-18.0); Lymphocyte % 29.6 %; Mean Corpuscular HGB Conc 32 g/dl (31-36); Mean Corpuscular Hemoglobin 29 pg (27-31); Mean Corpuscular Volume 90 fL (80-94); Mean Platelet Volume 8.4 fL (7.4-10.4); Nucleated Red Blood Cells % 0; Platelet Count 208 10^3/ul (150-450); Red Blood Count 3.57 10^6/ul (4.00-5.40); Red Cell Distribution Width 18 % (10.5-15); White Blood Count 4.4 10^3/ul (3.5-10.8)
[2018-08-19 14:38] LABS: Albumin 3.7 g/dL (3.2-5.2); Albumin/Globulin Ratio 1.4 (1-3); BUN/Creatinine Ratio 4.1 (8-20); Calcium 8.9 mg/dL (8.6-10.3); EGFR Non-African American 5.8 (>60); Globulin 2.7 g/dL (2-4); Magnesium 2.5 mg/dL (1.9-2.7); Total Bilirubin 0.4 mg/dL (0.2-1.0); Total Protein 6.4 g/dL (6.4-8.9)
[2018-08-19 14:39] LABS: Potassium 5.2 mmol/L (3.5-5.0)
[2018-08-19 15:21] LABS: TSH (Thyroid Stimulating Horm) 1.43 mcIU/mL (0.34-5.60)
[2018-08-19] MEDS ORDERED: Albuterol HFA INHALER* 8 gm MDI INH PRN (16:10)
[2018-08-19] MEDS ORDERED: Nitroglycerin TAB 0.4 MG* 0.4 MG TAB SL PRN (16:10)
[2018-08-19] MEDS ORDERED: Ergocalciferol CAP* 50000 UNIT PO SCH (17:00)
[2018-08-19 18:10] LABS: ABS Basophils 0.1 10^3/ul (0-0.2); ABS Eosinophils 0.4 10^3/ul (0-0.6); ABS Lymphocytes 1.2 10^3/ul (1.0-4.8); ABS Monocytes 0.4 10^3/ul (0-0.8); ABS Neutrophils 2.1 10^3/ul (1.5-7.7); ABS Nucleated RBC 0 10^3/ul; Eosinophil % 9.3 %; Hematocrit 31 % (42-52); Hemoglobin 9.9 g/dl (14.0-18.0); Lymphocyte % 29.1 %; Mean Corpuscular HGB Conc 32 g/dl (31-36); Mean Corpuscular Hemoglobin 29 pg (27-31); Mean Corpuscular Volume 90 fL (80-94); Mean Platelet Volume 9.1 fL (7.4-10.4); Nucleated Red Blood Cells % 0.3; Platelet Count 194 10^3/ul (150-450); Red Blood Count 3.47 10^6/ul (4.00-5.40); Red Cell Distribution Width 18 % (10.5-15); White Blood Count 4.1 10^3/ul (3.5-10.8)
--- NOTE | 2018-08-19 18:19 | HP ---
ADMITTING HISTORY AND PHYSICAL: DATE OF ADMISSION: 08/19/18 CHIEF COMPLAINT: Exertional chest pain and shortness of breath. HISTORY OF PRESENT ILLNESS: The patient is a 37-year-old -Mexican gentleman with history of ESRD, on hemodialysis; and history of previous illicit drug use and morbid obesity, who was recently discharged from our facility on 07/02/18 after he was admitted 2 days prior due to cellulitis. He has been treated with IV clindamycin and cultures have been drawn and was found to be contaminated with bacillus species. During that admission, he also complained of chest pain, but he had a Lexiscan stress test which was otherwise read as low probability and his troponins were also found to be normal and this has been cycled a few times prior to his last discharge. He was then discharged and mentioned that he was in his usual state of health unless he walks up the hill towards his house at which point he mentioned there were at least 3 to 4 episodes since his last discharge where he would palpitate, have some chest discomfort, and appeared to be confusion while walking uphill. Persistence of signs and symptoms has led to his presentation in the ED. PAST MEDICAL HISTORY: ESRD, on hemodialysis, with left arm AV fistula done on 09/14/15 for the past 5 years; hypertension; morbid obesity; and severe aortic regurgitation based on his last echocardiogram on 06/16/18 showing an EF of 50% to 55% with severe aortic regurgitation and moderate tricuspid regurgitation as well as severe pulmonary hypertension. PAST SURGICAL HISTORY: Status post total thyroidectomy. FAMILY HISTORY: His brother has diabetes. SOCIAL HISTORY: He has had previous smoking history, but quit 3 years ago. Has previous alcohol abuse history, but quit 5 years ago. However, he still smokes marijuana occasionally. REVIEW OF SYSTEMS: Dyspnea and chest pain on exertion. Other than this, the patient denied any recent headaches, dizziness, fevers, chills, nausea, vomiting , abdominal pain, diarrhea, constipation, pain and/or increased frequency on urination, myalgias, arthralgias, throat pain, or new skin lesions. The rest of the 14-point review of systems are otherwise unremarkable. PHYSICAL EXAMINATION GENERAL APPEARANCE: The patient is awake, not in acute distress. VITAL SIGNS: Shows the most recent vital signs of records with blood pressure of 133/72, 88 beats per minute heart rate, 13 per minute respiratory rate, saturating at 100% on room air. HEENT: Normocephalic, atraumatic. PERRLA. Extraocular muscles intact. Negative for icterus. Moist oral mucosa. Negative throat erythema. NECK: Soft, supple with no cervical lymphadenopathy. Positive JVD with positive hepatojugular reflux. CHEST : Clear to auscultation bilaterally. Good air entry. No wheezes, rales , and rhonchi. HEART: S1, S2, within normal limits. Regular rate and rhythm. No murmurs, rubs, or gallops. ABDOMEN: Soft, nondistended, nontender. Normoactive bowel sounds x4 quadrants. EXTREMITIES: No cyanosis or clubbing. +2 bilateral lower extremity edema. PSYCHIATRIC: No active psychosis, depression, suicidal or homicidal ideations. SKIN: Warm to touch. DIAGNOSTIC STUDIES/LAB DATA: Most recent pertinent laboratories include EKG that shows sinus rhythm, 89 beats per minute with no ST segment changes in comparison to previous one. Troponin x1 has been normal. CBC with the WBC of 4.4, H and H of 10.4 and 32, platelets of 208, PTT of 32.2, sodium and potassium of 142 and 5.2, BUN and creatinine 41 and 10.05. LFTs were found to be normal. BNP of 3555, which is at his baseline. Chest x-ray done showed cardiomegaly with no evidence of active cardiopulmonary disease. ASSESSMENT AND PLAN: The patient is a 37-year-old -Mexican gentleman with history of end-stage renal disease, on hemodialysis, being admitted for exertional chest pain and dyspnea along with confusion. 1. Exertional chest pain and/or shortness of breath. The patient may possibly have angina given this is not the first time that he complained of chest pain; however, his last stress test prior to June was normal. This has since been reported to Dr. Benton by Dr. Gao, who mentioned and suggested to perform stress echo instead and hence this will be set up for tomorrow. In addition, on further review of his previous 2D echo, he does have severe aortic regurgitation and we will defer with further input from Cardiology. 2. Fluid overload possibly due to valvular problem such as severe aortic regurgitation. We will diurese the patient with 40 IV b.i.d. of Lasix along with metolazone. This is also upon discussion with Dr. Saeed given Dr. Saeed is unsure whether the patient still responds to diuretics given his end-stage renal disease, on hemodialysis. 3. End-state renal disease, on hemodialysis. Continue hemodialysis, but per Dr. Saeed, the patient may not get dialyzed until Friday. Usually his dialysis schedule is Tuesdays, and Saturdays as an outpatient. We will place the patient on 2 g of sodium and potassium per day diet therapy along with 1500 mL fluid restriction as Dr. Saeed suggested. 4. Prophylaxis. We will place the patient on DVT prophylaxis, on heparin subcu renally dosed. 5. Disposition: For PT eval and for stress echo in a.m. We will await further Cardiology input. [id number]/[facility] #: [id number] CHRISS
[2018-08-19 18:21] LABS: EGFR Non-African American 5.7 (>60)
[2018-08-19 18:27] LABS: Activated Partial Thrombo Time 31.7 seconds (26.0-36.3); INR 1.14 (0.77-1.02)
[2018-08-19] MEDS: SUCROFERRIC OXYHYDROXIDE 500 MG PO SCH (18:38)
[2018-08-19] MEDS: Heparin VIAL(*) 5000 UNITS/ML VIAL (FIVE THOUSAND) SUBCUT SCH (20:40)
[2018-08-19] MEDS: Furosemide IV* 10 MG/ML VIAL (40 MG) IV SCH (20:40)
--- NOTE | 2018-08-20 01:31 | CONS ---
CONSULTATION REPORT: DATE OF CONSULT: 08/19/18 REASON FOR CONSULT: Near syncope, blackout sensation, and chest pain. CHIEF COMPLAINT: As above. HISTORY OF PRESENT ILLNESS: Kelvin Govea is a 37-year-old male with end-stage renal disease, on hemodialysis and he was seen in May by Dr. Ruiz for severe aortic insufficiency and exertional dyspnea. The patient states that Dr. Saeed has been changing his dialysis protocol and is due to see Dr. Ruiz on 08/21/18. The patient states that he has had a chest pain syndrome for years and that has come back. He said he was walking today and had what he calls a blackout where he was walking up a hill. He said he had to sort of slap himself to get back, but denied falling or fainting. PAST MEDICAL HISTORY: The patient has a past medical history of: 1. End-stage renal disease, on hemodialysis. 2. Hypertension. 3. Aortic insufficiency, severe. 4. Tricuspid insufficiency. 5. Severe pulmonary hypertension. PAST SURGICAL HISTORY: Includes thyroidectomy. MEDICATIONS: Current inpatient medications include: 1. Albuterol inhaler. 2. Sensipar 30 mg a day. 3. Drisdol (ergocalciferol tabs) 50,000 units weekly. 4. Lasix 40 mg b.i.d. 5. Heparin 5000 units q.12 hours. 6. Zaroxolyn 5 mg a day. 7. Nitroglycerin sublingual p.r.n. 8. Velphoro 500 mg t.i.d. ALLERGIES: He is allergic or intolerant to MORPHINE. FAMILY HISTORY: Significant for a brother with diabetes. SOCIAL HISTORY: The patient relatively recently moved from [place] to the [facility]. Stopped smoking approximately 3 years ago. History of alcohol abuse in the past. Occasional marijuana. No history of cocaine use. REVIEW OF SYSTEMS: Significant in that with his dialysis protocol being changed , he has an increasing lower extremity edema. See history of present illness for exertional dyspnea, chest discomfort, and blackout spells and all other review of systems was negative. No fevers, chills, sweats, change in bowel or bladder habit. He did mention that he had been gaining weight on his home scale. PHYSICAL EXAM: On exam, the patient is 5 feet 9 inches, weighs 257 pounds with BMI of 38. Vital signs on presentation: Blood pressure 140/68, pulse is 80 and regular, respiratory rate is 20, oxygen saturation 100%. General Appearance : Stocky and overweight middle-aged gentleman, seated at the edge of his bed, talking with the nurse, appears reasonably comfortable. Psychologically, pleasant and cooperative. Neurologically, awake, alert, and oriented to person , place, and time. Cranial nerves II through XII grossly intact. HEENT: Conjunctivae were injected and red bilaterally. Mucous membranes were moist. Neck: Obese without appreciable thyromegaly or lymphadenopathy. Breath sounds , he had some wheezing and decreased breath sounds in the bases. Coronary: S1 , S2, regular. I heard a prominent systolic murmur in the upper sternal border with radiation. I did not appreciate a diastolic murmur. Abdomen: Rotund, active bowel sounds, soft. Lower extremities showed 1 to 2+ pitting edema. DIAGNOSTIC STUDIES/LAB DATA: White count 4.1, hematocrit 32, platelets 208. INR 1.14, PTT 31.7. Sodium 142, potassium 5.2, chloride 100, bicarb 34, BUN 41 , creatinine 10, glucose 100, magnesium 2.5. AST of 13, ALT 14. Troponin #1, 0.01; troponin #2, 0.00. BNP 3555. TSH 1.43. Studies: Echocardiogram from 06/16/18 showed mild left ventricular hypertrophy with an ejection fraction of 50% to 55%, severe aortic insufficiency, no aortic stenosis, moderate tricuspid insufficiency, moderate mitral insufficiency, moderate to severe elevation in PA pressure, estimated at 67 mmHg. Lexiscan Myoview study from 06/30/18 showed dilated cardiomyopathy, ejection fraction of 54%, probable diaphragmatic attenuation, low risk study. Chest x-ray today showed cardiomegaly. No acute pulmonary disease. Venous Doppler 06/29/18 was negative for DVT. ASSESSMENT AND PLAN: In summary, Kelvin Govea is a 37-year-old male with end- stage renal disease, on hemodialysis with exertional symptoms of not only chest tightness but a blacking out sensation. He has evidence of right-sided heart failure and he is at risk for left-sided heart failure and pulmonary hypertension on the basis of his valve problems, which could be accounting for his symptoms. I proposed an exercise echo looking at valvular function at rest, post exercise and looking at PA pressures rest and post exercise in addition to wall motion abnormalities and ST changes. He thinks that this will be tough, so we will plan on a modified or a Lisa protocol, but I think this may be more helpful than a chemical stress test at determining his exercise-induced problems and assist in management of his valvular heart disease. Additional recommendations will be made following his exercise stress test. Oxygen levels can also be checked during the test. [id number]/[facility] #: [id number] MTDD
[2018-08-20 06:55] LABS: ABS Basophils 0 10^3/ul (0-0.2); ABS Eosinophils 0.4 10^3/ul (0-0.6); ABS Lymphocytes 1.5 10^3/ul (1.0-4.8); ABS Monocytes 0.4 10^3/ul (0-0.8); ABS Neutrophils 1.7 10^3/ul (1.5-7.7); ABS Nucleated RBC 0 10^3/ul; Eosinophil % 9.8 %; Hematocrit 32 % (42-52); Hemoglobin 10.2 g/dl (14.0-18.0); Lymphocyte % 36.5 %; Mean Corpuscular HGB Conc 32 g/dl (31-36); Mean Corpuscular Hemoglobin 29 pg (27-31); Mean Corpuscular Volume 90 fL (80-94); Mean Platelet Volume 8.5 fL (7.4-10.4); Nucleated Red Blood Cells % 0.3; Platelet Count 203 10^3/ul (150-450); Red Blood Count 3.52 10^6/ul (4.00-5.40); Red Cell Distribution Width 18 % (10.5-15)
[2018-08-20 07:15] LABS: Albumin 3.4 g/dL (3.2-5.2); Albumin/Globulin Ratio 1.1 (1-3); BUN/Creatinine Ratio 4.6 (8-20); EGFR Non-African American 5.2 (>60); Globulin 3.1 g/dL (2-4); Magnesium 2.5 mg/dL (1.9-2.7); Total Bilirubin 0.4 mg/dL (0.2-1.0); Total Protein 6.5 g/dL (6.4-8.9)
[2018-08-20 07:31] LABS: Potassium 5.5 mmol/L (3.5-5.0)
[2018-08-20] MEDS: SUCROFERRIC OXYHYDROXIDE 500 MG PO SCH ×3 (07:52→15:24)
[2018-08-20] MEDS: Metolazone TAB* 5 MG PO SCH (08:06)
[2018-08-20] MEDS: Cinacalcet TAB* 30 MG PO SCH (08:06)
[2018-08-20] MEDS: Heparin VIAL(*) 5000 UNITS/ML VIAL (FIVE THOUSAND) SUBCUT SCH ×2 (08:07→20:17)
[2018-08-20] MEDS: Furosemide IV* 10 MG/ML VIAL (40 MG) IV SCH ×2 (10:45→20:17)
--- NOTE | 2018-08-20 13:27 | PN ---
Subjective Date of Service: 08/20/18 Interval History: f/u AI, admitted with exertional dyspnea/CP/presyncope Patient had limited echo today showing very severe AI, ? AoV prolapse vs. vegetation (previously described on 06/2018 echo), LVEF 40.6% mild-moderately dilated. Patient exercised for 30 seconds on charu protocol stopped due to severe dyspnea and chest tightness with mild BP drop (unable to obtain post- stress echo images) Patient denies any IV drug use history Medications Active Medications: Albuterol (Ventolin Hfa Inhaler*) 2 puff INH Q6H PRN PRN Reason: SHORTNESS OF BREATH Cinacalcet (Sensipar Tab*) 30 mg PO DAILY [facility] Last Admin: 08/20/18 08:06 Dose: 30 mg Ergocalciferol (Drisdol Cap*) 50,000 unit PO WEEKLY [facility] Furosemide (Lasix Iv*) 40 mg IV BID [facility] Last Admin: 08/20/18 10:45 Dose: 40 mg Heparin Sodium (Porcine) (Heparin Vial(*)) 5,000 units SUBCUT Q12HR [facility] Last Admin: 08/20/18 08:07 Dose: 5,000 units Metolazone (Zaroxolyn Tab*) 5 mg PO DAILY@0830 [facility] Last Admin: 08/20/18 08:06 Dose: 5 mg Nitroglycerin (Nitroglycerin Tab 0.4 Mg*) 0.4 mg SL Q5M PRN PRN Reason: PAIN - CHEST Nft: Sucroferric Oxyhydroxide [ Velphoro] 500 Mg 500 mg PO TID [facility] Last Admin: 08/20/18 11:56 Dose: Not Given Patiromer (Veltassa Powder*) 8.4 gm PO DAILY [facility] Objective Vital Signs: Temp Pulse Resp BP Pulse Ox 98.4 F 89 20 127/54 100 08/20/18 08:42 08/20/18 08:42 08/20/18 08:42 08/20/18 08:42 08/20/18 08:42 Oxygen Devices in Use Now: None Appearance: nad, pleasant Neck: Trachea Midline, - - uncertain jvp Respiratory: Symmetrical Chest Expansion and Respiratory Effort, Clear to Auscultation Cardiovascular: - - RRR, 3/6 diastolic murmur heard best left base Extremities: - - 1-2+ pitting edema Neurological: Alert and Oriented x 3 Laboratory Results: 08/20/18 06:32 08/20/18 06:32 INR (Anticoag Therapy) 1.14 (0.77-1.02) H 08/19/18 17:49 APTT 31.7 seconds (26.0-36.3) 08/19/18 17:49 Total Bilirubin 0.40 mg/dL (0.2-1.0) 08/20/18 06:32 AST 12 U/L (13-39) L 08/20/18 06:32 ALT 14 U/L (7-52) 08/20/18 06:32 Alkaline Phosphatase 90 U/L (34-104) 08/20/18 06:32 CK-MB (CK-2) 2.7 ng/mL (0.6-6.3) 08/19/18 13:55 B-Natriuretic Peptide > 1300 pg/mL (<=100) H 08/20/18 06:32 Total Protein 6.5 g/dL (6.4-8.9) 08/20/18 06:32 Albumin 3.4 g/dL (3.2-5.2) 08/20/18 06:32 Globulin 3.1 g/dL (2-4) 08/20/18 06:32 Albumin/Globulin Ratio 1.1 (1-3) 08/20/18 06:32 TSH 1.43 mcIU/mL (0.34-5.60) 08/19/18 13:55 08/19/18 08/19/18 08/19/18 13:55 15:13 17:49 Troponin I 0.01 0.00 0.00 08/19/18 08/20/18 20:57 00:35 Troponin I 0.00 0.00 Assessment/Plan 1. 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 ESRD on HD - L arm fistula 3. HTN 4. Obesity Discussed with Nephrology Dr. Saeed, plan for HD tomorrow AM (to remove volume and address K 5.5) followed by ANABEL to further evaluate aortic regurgitation. I discussed with his sister on phone I think he would benefit from aortic valve surgery in the near future. He would prefer [facility]. Check ESR/CRP and blood cultures now (ordered) Thank you for allowing me to participate in the cardiovascular care of this patient. Please do not hesitate to contact me with questions or concerns.
--- NOTE | 2018-08-20 13:58 | PN ---
Subjective Date of Service: 08/20/18 Interval History: Pt seen and examined. Meds and labs reviewed. Pt was only able to tolerate 30 secs of exercise echo and had to be halted given LORENZO, chest tightness, and slight drop in BP. CC: As above ROS: Denied KRISHNA/dizziness, F/C, N/V, CP, SOB, increased cough, sputum production , abd pain, diarrhea, constipation, dysuria, myalgias, arthralgias, throat pain , and new skin lesions. The rest of the 14 point ROS are unremarkable. PHYSICAL EXAM: GEN APPEARANCE: Awake, not in acute distress HEENT: NC/AT, PERRLA, moist oral mucosa, (-) throat erythema NECK: Soft, supple, (-) cervical LAD, (+)JVD HEART: S1S2 WNL, RRR, No MRG CHEST: CTA, BL, GAE, No W/R/R ABD: Soft, ND/NT, NABS 4x Q EXT: No C/C/BLLE edema (+)2 SKIN: Warm to touch PSYCH: No active psychosis, hallucinations, depression, SI/HI Objective Active Medications: Albuterol (Ventolin Hfa Inhaler*) 2 puff INH Q6H PRN PRN Reason: SHORTNESS OF BREATH Cinacalcet (Sensipar Tab*) 30 mg PO DAILY [facility] Last Admin: 08/20/18 08:06 Dose: 30 mg Ergocalciferol (Drisdol Cap*) 50,000 unit PO WEEKLY [facility] Furosemide (Lasix Iv*) 40 mg IV BID [facility] Last Admin: 08/20/18 10:45 Dose: 40 mg Heparin Sodium (Porcine) (Heparin Vial(*)) 5,000 units SUBCUT Q12HR [facility] Last Admin: 08/20/18 08:07 Dose: 5,000 units Metolazone (Zaroxolyn Tab*) 5 mg PO DAILY@0830 [facility] Last Admin: 08/20/18 08:06 Dose: 5 mg Nitroglycerin (Nitroglycerin Tab 0.4 Mg*) 0.4 mg SL Q5M PRN PRN Reason: PAIN - CHEST Nft: Sucroferric Oxyhydroxide [ Velphoro] 500 Mg 500 mg PO TID [facility] Last Admin: 08/20/18 11:56 Dose: Not Given Patiromer (Veltassa Powder*) 8.4 gm PO DAILY [facility] Vital Signs - 8 hr 08/20/18 08/20/18 08:42 10:24 Temperature 98.4 F 97.6 F Pulse Rate 89 92 Respiratory 20 18 Rate Blood Pressure 127/54 115/58 (mmHg) O2 Sat by Pulse 100 98 Oximetry Oxygen Devices in Use Now: None Result Diagrams: 08/20/18 06:32 08/20/18 06:32 Assess/Plan/Problems-Billing Assessment: - Patient Problems (1) Aortic valve insufficiency Current Visit: Yes Status: Acute Code(s): I35.1 - NONRHEUMATIC AORTIC (VALVE ) INSUFFICIENCY SNOMED Code(s): 63274241 Comment: #Severe AI: -Likely cause of fluid overload -Appreciate Cardiology F/U who mentions that pt to be dialyzed tomorrow after touching base w/Dr. Saeed -Continue Lasix and Metolazone for now -Suspected healed endocarditis and for ANABEL in AM; pt does have history of downplaying his symptoms and history -Pt prefers [facility] for AV surgery in the future and will defer (2) Chest pain Current Visit: No Status: Acute Code(s): R07.9 - CHEST PAIN, UNSPECIFIED SNOMED Code(s): 49709354 Comment: -Troponin (-) x 5 -Likely due to above (3) ESRD (end stage renal disease) Current Visit: No Status: Acute Code(s): N18.6 - END STAGE RENAL DISEASE SNOMED Code(s): 91347523 Comment: -For HD tomorrow to further correct slight hyperkalemia w/c he was given patiromer for -Will place pt on renal diet on top of HH diet (4) DVT prophylaxis Current Visit: No Status: Acute Code(s): EGO4542 - SNOMED Code(s): 630116280 Comment: -Continue Heparin SQ, renally dosed Status and Disposition: -As above
[2018-08-20] MEDS: Patiromer POWDER* 8.4 GM PAK PO SCH ×2 (15:28→15:30)
[2018-08-20] MEDS ORDERED: Ergocalciferol CAP* 50000 UNIT PO SCH (21:00)
[2018-08-21] MEDS: Metolazone TAB* 5 MG PO SCH (07:48)
[2018-08-21] MEDS: Cinacalcet TAB* 30 MG PO SCH (07:48)
[2018-08-21] MEDS: SUCROFERRIC OXYHYDROXIDE 500 MG PO SCH ×3 (07:48→17:19)
[2018-08-21 08:32] LABS: Hematocrit 34 % (42-52); Mean Corpuscular HGB Conc 33 g/dl (31-36); Mean Corpuscular Hemoglobin 29 pg (27-31); Mean Corpuscular Volume 89 fL (80-94); Platelet Count 230 10^3/ul (150-450); Red Cell Distribution Width 18 % (10.5-15); White Blood Count 4.9 10^3/ul (3.5-10.8)
[2018-08-21 08:49] LABS: BUN/Creatinine Ratio 4.8 (8-20); Calcium 9.6 mg/dL (8.6-10.3); EGFR Non-African American 3.8 (>60)
[2018-08-21 08:53] LABS: Potassium 7.1 mmol/L (3.5-5.0)
[2018-08-21] MEDS ORDERED: Insulin REGULAR(*) 1 UNITS UNIT IV PUSH STA (09:23)
[2018-08-21] MEDS ORDERED: Dextrose 50% VIAL 50 ml IV STA (09:24)
[2018-08-21] MEDS: Furosemide IV* 10 MG/ML VIAL (40 MG) IV SCH ×2 (09:24→21:13)
[2018-08-21] MEDS: Patiromer POWDER* 8.4 GM PAK PO SCH (09:24)
[2018-08-21] MEDS: Heparin VIAL(*) 5000 UNITS/ML VIAL (FIVE THOUSAND) SUBCUT SCH ×2 (09:24→21:12)
[2018-08-21] MEDS ORDERED: Albuterol 0.5% CONC NEB.SOL* 5 MG/ML 20 ml BOT INH STA (09:25)
[2018-08-21] MEDS ORDERED: Calcium Gluconate INJ* 1 GM in NS 0.9% 50 ML* 50 ML IVPB ONE (09:25)
[2018-08-21] MEDS ORDERED: Dextrose 50% Syringe 50 ML* 25 GM/50 ML SYRINGE IV PUSH STA (09:27)
[2018-08-21 09:46] LABS: ABS Basophils 0.1 10^3/ul (0-0.2); ABS Eosinophils 0.3 10^3/ul (0-0.6); ABS Lymphocytes 1.8 10^3/ul (1.0-4.8); ABS Monocytes 0.3 10^3/ul (0-0.8); ABS Neutrophils 2.4 10^3/ul (1.5-7.7); ABS Nucleated RBC 0 10^3/ul; Eosinophil % 6.7 %; Lymphocyte % 36.8 %; Nucleated Red Blood Cells % 0.4
[2018-08-21] MEDS ORDERED: Albuterol 2.5 MG/3 ML NEB.SOL* (0.083%) INH PRN (10:32)
[2018-08-21] MEDS ORDERED: Heparin DIALYSIS ONLY(*) 1,000 UNITS/ML VIAL DIALYSIS ONE (12:00)
[2018-08-21] MEDS ORDERED: fentaNYL* 50 MCG/ML 2 ML VIAL (100 MCG VIAL) ONE (14:57)
[2018-08-21] MEDS ORDERED: Flumazenil* 0.1 MG/ML 5 ML MDV ONE (14:58)
[2018-08-21] MEDS ORDERED: Midazolam* 1 MG/ML 10 ML VIAL (10 MG) ONE (14:58)
[2018-08-21] MEDS ORDERED: Lidocaine 2% VISCOUS* 15 ML UDC ONE (14:58)
[2018-08-21] MEDS ORDERED: Naloxone* 0.4 MG/ML 1 ML VIAL ONE (14:58)
--- NOTE | 2018-08-21 14:59 | PN ---
Subjective Date of Service: 08/21/18 Interval History: Pt seen and examined. Meds and labs reviewed. RN informed me of pts hyperkalemia. This was corrected. Please see discussion below. CC: N/A ROS: Denied KRISHNA/dizziness, F/C, N/V, CP, SOB, increased cough, sputum production , abd pain, diarrhea, constipation, dysuria, myalgias, arthralgias, throat pain , and new skin lesions. The rest of the 14 point ROS are unremarkable. PHYSICAL EXAM: GEN APPEARANCE: Awake, not in acute distress HEENT: NC/AT, PERRLA, moist oral mucosa, (-) throat erythema NECK: Soft, supple, (-) cervical LAD, (+)JVD HEART: S1S2 WNL, RRR, No MRG CHEST: CTA, BL, GAE, No W/R/R ABD: Soft, ND/NT, NABS 4x Q EXT: No C/C/BLLE edema (+)2 SKIN: Warm to touch PSYCH: No active psychosis, hallucinations, depression, SI/HI Objective Active Medications: Albuterol (Ventolin Hfa Inhaler*) 2 puff INH Q6H PRN PRN Reason: SHORTNESS OF BREATH Albuterol (Ventolin 2.5 Mg/3 Ml Neb.Lucia*) 2.5 mg INH Q4H PRN PRN Reason: SOB/WHEEZING Cinacalcet (Sensipar Tab*) 30 mg PO DAILY [facility] Last Admin: 08/21/18 07:48 Dose: Not Given Ergocalciferol (Drisdol Cap*) 50,000 unit PO Th [facility] Last Admin: 08/20/18 20:18 Dose: 50,000 unit Furosemide (Lasix Iv*) 40 mg IV BID [facility] Last Admin: 08/21/18 09:24 Dose: Not Given Heparin Sodium (Porcine) (Heparin Vial(*)) 5,000 units SUBCUT Q12HR [facility] Last Admin: 08/21/18 09:24 Dose: Not Given Metolazone (Zaroxolyn Tab*) 5 mg PO DAILY@0830 [facility] Last Admin: 08/21/18 07:48 Dose: Not Given Nitroglycerin (Nitroglycerin Tab 0.4 Mg*) 0.4 mg SL Q5M PRN PRN Reason: PAIN - CHEST Nft: Sucroferric Oxyhydroxide [ Velphoro] 500 Mg 500 mg PO TID [facility] Last Admin: 08/21/18 12:15 Dose: Not Given Patiromer (Veltassa Powder*) 8.4 gm PO DAILY [facility] Last Admin: 08/21/18 09:24 Dose: Not Given Vital Signs - 8 hr 08/21/18 08/21/18 08/21/18 07:36 08:00 14:36 Temperature 97.5 F 97.2 F Pulse Rate 87 87 Respiratory 16 16 18 Rate Blood Pressure 128/56 130/52 (mmHg) O2 Sat by Pulse 99 100 Oximetry Oxygen Devices in Use Now: None Result Diagrams: 08/21/18 08:21 08/21/18 08:21 Assess/Plan/Problems-Billing Assessment: - Patient Problems (1) Aortic valve insufficiency Current Visit: Yes Status: Acute Code(s): I35.1 - NONRHEUMATIC AORTIC (VALVE ) INSUFFICIENCY SNOMED Code(s): 72152588 Comment: #Severe AI: -Likely cause of fluid overload -Pt planned to be ultrafiltrated total of 3L -Continue Lasix and Metolazone for now, although pt seems to be poorly responsive to diuretics at this time -Suspected healed endocarditis and for ANABEL post dialysis and UF -Pt prefers [facility] for AV surgery in the future and will defer (2) Hyperkalemia Current Visit: Yes Status: Acute Code(s): E87.5 - HYPERKALEMIA SNOMED Code (s): 16704846 Comment: -Nebulized w/Albuterol, Calcium gluconate IV x1, 2 amps of Glucose, and 10 units of Regular insulin prior to dialysis today -Expected to improve w/HD -Continue watchful waiting -Placed pt on renal diet (3) Chest pain Current Visit: No Status: Acute Code(s): R07.9 - CHEST PAIN, UNSPECIFIED SNOMED Code(s): 72492189 Comment: -Troponin (-) x 5 -Likely due to above (4) ESRD (end stage renal disease) Current Visit: No Status: Acute Code(s): N18.6 - END STAGE RENAL DISEASE SNOMED Code(s): 11832524 Comment: -For HD today -Will place pt on renal diet on top of HH diet (5) DVT prophylaxis Current Visit: No Status: Acute Code(s): QIA4746 - SNOMED Code(s): 625332410 Comment: -Continue Heparin SQ, renally dosed Status and Disposition: -As above -No skilled PT needs identified
[2018-08-21] MEDS ORDERED: diPHENhydraMINE IV* 50 MG/ML 1 ml VIAL (BENADRYL) ONE (15:20)
--- NOTE | 2018-08-21 19:43 | PN ---
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) and very severe AI No symptoms at rest currently Medications Active Medications: Albuterol (Ventolin Hfa Inhaler*) 2 puff INH Q6H PRN PRN Reason: SHORTNESS OF BREATH Albuterol (Ventolin 2.5 Mg/3 Ml Neb.Lucia*) 2.5 mg INH Q4H PRN PRN Reason: SOB/WHEEZING Cinacalcet (Sensipar Tab*) 30 mg PO DAILY [facility] Last Admin: 08/21/18 07:48 Dose: Not Given Ergocalciferol (Drisdol Cap*) 50,000 unit PO Th [facility] Last Admin: 08/20/18 20:18 Dose: 50,000 unit Furosemide (Lasix Iv*) 40 mg IV BID [facility] Last Admin: 08/21/18 09:24 Dose: Not Given Heparin Sodium (Porcine) (Heparin Vial(*)) 5,000 units SUBCUT Q12HR [facility] Last Admin: 08/21/18 09:24 Dose: Not Given Metolazone (Zaroxolyn Tab*) 5 mg PO DAILY@0830 [facility] Last Admin: 08/21/18 07:48 Dose: Not Given Nitroglycerin (Nitroglycerin Tab 0.4 Mg*) 0.4 mg SL Q5M PRN PRN Reason: PAIN - CHEST Nft: Sucroferric Oxyhydroxide [ Velphoro] 500 Mg 500 mg PO TID AC [facility] Last Admin: 08/21/18 17:19 Dose: Not Given Patiromer (Veltassa Powder*) 8.4 gm PO DAILY [facility] Last Admin: 08/21/18 09:24 Dose: Not Given Objective Vital Signs: Temp Pulse Resp BP Pulse Ox 98.1 F 87 17 119/52 97 08/21/18 17:21 08/21/18 17:21 08/21/18 17:21 08/21/18 17:21 08/21/18 17:21 Oxygen Devices in Use Now: None Appearance: nad, pleasant Neck: Trachea Midline, - - uncertain jvp Respiratory: Symmetrical Chest Expansion and Respiratory Effort, Clear to Auscultation Cardiovascular: - - RRR, 3/6 diastolic murmur heard best left base Extremities: - - 1+ pitting edema Neurological: Alert and Oriented x 3 Laboratory Results: 08/21/18 08:21 08/21/18 08:21 INR (Anticoag Therapy) 1.14 (0.77-1.02) H 08/19/18 17:49 APTT 31.7 seconds (26.0-36.3) 08/19/18 17:49 Total Bilirubin 0.40 mg/dL (0.2-1.0) 08/20/18 06:32 AST 12 U/L (13-39) L 08/20/18 06:32 ALT 14 U/L (7-52) 08/20/18 06:32 Alkaline Phosphatase 90 U/L (34-104) 08/20/18 06:32 CK-MB (CK-2) 2.7 ng/mL (0.6-6.3) 08/19/18 13:55 B-Natriuretic Peptide 3621 pg/mL (<=100) H 08/21/18 08:21 Total Protein 6.5 g/dL (6.4-8.9) 08/20/18 06:32 Albumin 3.4 g/dL (3.2-5.2) 08/20/18 06:32 Globulin 3.1 g/dL (2-4) 08/20/18 06:32 Albumin/Globulin Ratio 1.1 (1-3) 08/20/18 06:32 TSH 1.43 mcIU/mL (0.34-5.60) 08/19/18 13:55 08/19/18 08/19/18 08/19/18 13:55 15:13 17:49 Troponin I 0.01 0.00 0.00 08/19/18 08/20/18 20:57 00:35 Troponin I 0.00 0.00 blood cultures: NGTD ESR 18 CRP 12.7 Assessment/Plan 1. Severe AI - He has multiple indications for surgery (LV dilated with mild LV dysfunction and very symptomatic) - Suspected healed prior endocarditis 2. ESRD on HD - L arm fistula 3. HTN 4. Obesity - Working on arranging transfer for cardiac surgery (unlikely to happen until Friday) - Discussed with Dr. Saeed, plan for HD Friday, possibility of diagnostic coronary angiogram here that day. Thank you for allowing me to participate in the cardiovascular care of this patient. Please do not hesitate to contact me with questions or concerns.
[2018-08-21 21:14] LABS: Potassium 5.3 mmol/L (3.5-5.0)
[2018-08-22] MEDS ORDERED: Benzocaine/Menthol LOZ* 1 LOZENGE ONE (04:46)
[2018-08-22 07:01] LABS: ABS Basophils 0.1 10^3/ul (0-0.2); ABS Eosinophils 0.4 10^3/ul (0-0.6); ABS Lymphocytes 1.4 10^3/ul (1.0-4.8); ABS Monocytes 0.4 10^3/ul (0-0.8); ABS Neutrophils 2.9 10^3/ul (1.5-7.7); ABS Nucleated RBC 0 10^3/ul; Eosinophil % 7.2 %; Hematocrit 32 % (42-52); Hemoglobin 10.6 g/dl (14.0-18.0); Lymphocyte % 27.4 %; Mean Corpuscular HGB Conc 33 g/dl (31-36); Mean Corpuscular Hemoglobin 29 pg (27-31); Mean Corpuscular Volume 89 fL (80-94); Mean Platelet Volume 8.9 fL (7.4-10.4); Nucleated Red Blood Cells % 0.1; Platelet Count 218 10^3/ul (150-450); Red Blood Count 3.63 10^6/ul (4.00-5.40); Red Cell Distribution Width 18 % (10.5-15)
[2018-08-22 07:13] LABS: BUN/Creatinine Ratio 4.5 (8-20); Calcium 9.4 mg/dL (8.6-10.3)
[2018-08-22 07:30] LABS: Potassium 5.7 mmol/L (3.5-5.0)
[2018-08-22] MEDS: SUCROFERRIC OXYHYDROXIDE 500 MG PO SCH ×3 (07:45→15:59)
[2018-08-22] MEDS: Metolazone TAB* 5 MG PO SCH (07:49)
[2018-08-22] MEDS: Patiromer POWDER* 8.4 GM PAK PO SCH ×3 (08:12→17:10)
[2018-08-22] MEDS: Heparin VIAL(*) 5000 UNITS/ML VIAL (FIVE THOUSAND) SUBCUT SCH ×2 (08:35→21:24)
[2018-08-22] MEDS: Cinacalcet TAB* 30 MG PO SCH (08:35)
[2018-08-22] MEDS: Furosemide IV* 10 MG/ML VIAL (40 MG) IV SCH ×3 (08:35→22:10)
--- NOTE | 2018-08-22 12:48 | PN ---
Subjective Date of Service: 08/22/18 Interval History: Pt seen and examined. Meds and labs reviewed. CC: N/A ROS: Denied KRISHNA/dizziness, F/C, N/V, CP, SOB, increased cough, sputum production , abd pain, diarrhea, constipation, dysuria, myalgias, arthralgias, throat pain , and new skin lesions. The rest of the 14 point ROS are unremarkable. PHYSICAL EXAM: GEN APPEARANCE: Awake, not in acute distress HEENT: NC/AT, PERRLA, moist oral mucosa, (-) throat erythema NECK: Soft, supple, (-) cervical LAD, (+)JVD improved HEART: S1S2 WNL, RRR, No MRG CHEST: CTA, BL, GAE, No W/R/R ABD: Soft, ND/NT, NABS 4x Q EXT: No C/C/BLLE edema (+)2 SKIN: Warm to touch PSYCH: No active psychosis, hallucinations, depression, SI/HI Objective Active Medications: Albuterol (Ventolin Hfa Inhaler*) 2 puff INH Q6H PRN PRN Reason: SHORTNESS OF BREATH Albuterol (Ventolin 2.5 Mg/3 Ml Neb.Lucia*) 2.5 mg INH Q4H PRN PRN Reason: SOB/WHEEZING Cinacalcet (Sensipar Tab*) 30 mg PO DAILY [facility] Last Admin: 08/22/18 08:35 Dose: 30 mg Ergocalciferol (Drisdol Cap*) 50,000 unit PO Th [facility] Last Admin: 08/20/18 20:18 Dose: 50,000 unit Furosemide (Lasix Iv*) 40 mg IV BID [facility] Last Admin: 08/22/18 08:35 Dose: 40 mg Heparin Sodium (Porcine) (Heparin Vial(*)) 5,000 units SUBCUT Q12HR [facility] Last Admin: 08/22/18 08:35 Dose: 5,000 units Metolazone (Zaroxolyn Tab*) 5 mg PO DAILY@0830 [facility] Last Admin: 08/22/18 07:49 Dose: 5 mg Nitroglycerin (Nitroglycerin Tab 0.4 Mg*) 0.4 mg SL Q5M PRN PRN Reason: PAIN - CHEST Nft: Sucroferric Oxyhydroxide [ Velphoro] 500 Mg 500 mg PO TID [facility] Last Admin: 08/22/18 07:45 Dose: Not Given Patiromer (Veltassa Powder*) 8.4 gm PO DAILY [facility] Last Admin: 08/22/18 08:12 Dose: Not Given Vital Signs - 8 hr 08/22/18 08/22/18 03:44 07:10 Temperature 97.4 F 96.9 F Pulse Rate 93 83 Respiratory 20 16 Rate Blood Pressure 122/52 123/55 (mmHg) O2 Sat by Pulse 100 99 Oximetry Oxygen Devices in Use Now: None Result Diagrams: 08/22/18 06:39 08/22/18 06:39 Microbiology and Other Data: Microbiology 08/21/18 08:21 Aerobic Blood Culture - Preliminary Blood Venous No Growth Day 1 Anaerobic Blood Culture - Preliminary No Growth Day 1 08/20/18 15:15 Aerobic Blood Culture - Preliminary Blood Venous No Growth Day 1 Anaerobic Blood Culture - Preliminary No Growth Day 1 Assess/Plan/Problems-Billing Assessment: - Patient Problems (1) Aortic valve insufficiency Current Visit: Yes Status: Acute Code(s): I35.1 - NONRHEUMATIC AORTIC (VALVE ) INSUFFICIENCY SNOMED Code(s): 15427067 Comment: #Severe AI: -Likely cause of fluid overload -S/P UF via HD yesterday -Continue Lasix and Metolazone for now, although pt seems to be poorly responsive to diuretics at this time -Suspected healed endocarditis and for ANABEL post dialysis and UF -Pt prefers [facility] for AV surgery in the future and will defer ---possible transfer to cardiovascular surgery team after diagnostic coronary angiogram on Friday -Will defer w/Cards (2) Hyperkalemia Current Visit: Yes Status: Acute Code(s): E87.5 - HYPERKALEMIA SNOMED Code (s): 36716230 Comment: -Increased Patiromer needs to qAC instead of qday -Will repeat potassium levels at 2100 -Continue watchful waiting -Continue renal diet -D/W Dr. Saeed who agrees with above plan (3) Chest pain Current Visit: No Status: Acute Code(s): R07.9 - CHEST PAIN, UNSPECIFIED SNOMED Code(s): 48540432 Comment: -Troponin (-) x 5 -Likely due to above (4) ESRD (end stage renal disease) Current Visit: No Status: Acute Code(s): N18.6 - END STAGE RENAL DISEASE SNOMED Code(s): 08703048 Comment: -Continue HD; next one scheduled on Friday -Continue renal diet on top of HH diet (5) DVT prophylaxis Current Visit: No Status: Acute Code(s): OAV9005 - SNOMED Code(s): 673110566 Comment: -Continue Heparin SQ, renally dosed Status and Disposition: -As above -No skilled PT needs identified -For planned transfer to Cardiovascular surgery discussed above in 2-3 days
--- NOTE | 2018-08-22 12:49 | PN ---
Subjective Date of Service: 08/22/18 Interval History: f/u AI, admitted with exertional dyspnea/presyncope No symptoms at rest currently No bed availability at [facility] in [place] through transfer center (they declined transfer) I discussed with Dr. Hamm at [facility] and patient will be arranged for transfer Friday at some point, still needs diagnostic coronary angiogram Discussed with Dr. Saeed and plan for HD Friday Possibility of diagnostic coronary angiogram here Friday with Dr. Saeed either before after HD Medications Active Medications: Albuterol (Ventolin Hfa Inhaler*) 2 puff INH Q6H PRN PRN Reason: SHORTNESS OF BREATH Albuterol (Ventolin 2.5 Mg/3 Ml Neb.Lucia*) 2.5 mg INH Q4H PRN PRN Reason: SOB/WHEEZING Cinacalcet (Sensipar Tab*) 30 mg PO DAILY [facility] Last Admin: 08/22/18 08:35 Dose: 30 mg Ergocalciferol (Drisdol Cap*) 50,000 unit PO Th [facility] Last Admin: 08/20/18 20:18 Dose: 50,000 unit Furosemide (Lasix Iv*) 40 mg IV BID [facility] Last Admin: 08/22/18 08:35 Dose: 40 mg Heparin Sodium (Porcine) (Heparin Vial(*)) 5,000 units SUBCUT Q12HR [facility] Last Admin: 08/22/18 08:35 Dose: 5,000 units Metolazone (Zaroxolyn Tab*) 5 mg PO DAILY@0830 [facility] Last Admin: 08/22/18 07:49 Dose: 5 mg Nitroglycerin (Nitroglycerin Tab 0.4 Mg*) 0.4 mg SL Q5M PRN PRN Reason: PAIN - CHEST Nft: Sucroferric Oxyhydroxide [ Velphoro] 500 Mg 500 mg PO TID [facility] Last Admin: 08/22/18 11:28 Dose: Not Given Patiromer (Veltassa Powder*) 8.4 gm PO DAILY [facility] Last Admin: 08/22/18 08:12 Dose: Not Given Objective Vital Signs: Temp Pulse Resp BP Pulse Ox 96.9 F 83 16 123/55 99 08/22/18 07:10 08/22/18 07:10 08/22/18 08:00 08/22/18 07:10 08/22/18 07:10 Oxygen Devices in Use Now: None Appearance: nad, pleasant Neck: Trachea Midline, - - uncertain jvp Respiratory: Symmetrical Chest Expansion and Respiratory Effort, Clear to Auscultation Cardiovascular: - - RRR, 3/6 systolic murmur heard best left base Extremities: - - 1+ pitting edema Neurological: Alert and Oriented x 3 Laboratory Results: 08/22/18 06:39 08/22/18 06:39 INR (Anticoag Therapy) 1.14 (0.77-1.02) H 08/19/18 17:49 APTT 31.7 seconds (26.0-36.3) 08/19/18 17:49 Total Bilirubin 0.40 mg/dL (0.2-1.0) 08/20/18 06:32 AST 12 U/L (13-39) L 08/20/18 06:32 ALT 14 U/L (7-52) 08/20/18 06:32 Alkaline Phosphatase 90 U/L (34-104) 08/20/18 06:32 CK-MB (CK-2) 2.7 ng/mL (0.6-6.3) 08/19/18 13:55 B-Natriuretic Peptide 3621 pg/mL (<=100) H 08/21/18 08:21 Total Protein 6.5 g/dL (6.4-8.9) 08/20/18 06:32 Albumin 3.4 g/dL (3.2-5.2) 08/20/18 06:32 Globulin 3.1 g/dL (2-4) 08/20/18 06:32 Albumin/Globulin Ratio 1.1 (1-3) 08/20/18 06:32 TSH 1.43 mcIU/mL (0.34-5.60) 08/19/18 13:55 08/19/18 08/19/18 08/19/18 13:55 15:13 17:49 Troponin I 0.01 0.00 0.00 08/19/18 08/20/18 20:57 00:35 Troponin I 0.00 0.00 EKG Data: ekg this admission nsr, diffuse repolarization abnormalities Assessment/Plan 1. 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 ESRD on HD - L arm fistula 3. HTN 4. Obesity - Plan for HD Friday, possibility of diagnostic coronary angiogram here that day - Transfer to [facility] Friday (see HPI) Thank you for allowing me to participate in the cardiovascular care of this patient. Please do not hesitate to contact me with questions or concerns.
[2018-08-22] MEDS ORDERED: Benzocaine/Menthol LOZ* 1 LOZENGE PO PRN (12:53)
[2018-08-22] MEDS: Furosemide TAB* 20 MG PO SCH (22:20)
[2018-08-23] MEDS: Acetaminophen TAB* 325 MG PO PRN (06:05)
[2018-08-23 07:37] LABS: ABS Basophils 0 10^3/ul (0-0.2); ABS Eosinophils 0.4 10^3/ul (0-0.6); ABS Lymphocytes 1.3 10^3/ul (1.0-4.8); ABS Monocytes 0.3 10^3/ul (0-0.8); ABS Nucleated RBC 0 10^3/ul; Eosinophil % 8.8 %; Hematocrit 31 % (42-52); Lymphocyte % 32.1 %; Mean Corpuscular HGB Conc 32 g/dl (31-36); Mean Corpuscular Hemoglobin 29 pg (27-31); Mean Corpuscular Volume 90 fL (80-94); Mean Platelet Volume 8.4 fL (7.4-10.4); Nucleated Red Blood Cells % 0.1; Platelet Count 180 10^3/ul (150-450); Red Blood Count 3.47 10^6/ul (4.00-5.40); Red Cell Distribution Width 18 % (10.5-15)
[2018-08-23 08:24] LABS: BUN/Creatinine Ratio 4.7 (8-20); Calcium 8.6 mg/dL (8.6-10.3); EGFR Non-African American 3.9 (>60)
[2018-08-23 08:27] LABS: Potassium 5.1 mmol/L (3.5-5.0)
[2018-08-23] MEDS: Metolazone TAB* 5 MG PO SCH (09:08)
[2018-08-23] MEDS: Cinacalcet TAB* 30 MG PO SCH (09:08)
[2018-08-23] MEDS: Furosemide TAB* 20 MG PO SCH ×2 (09:09→21:23)
[2018-08-23] MEDS: Heparin VIAL(*) 5000 UNITS/ML VIAL (FIVE THOUSAND) SUBCUT SCH ×2 (09:09→21:23)
[2018-08-23] MEDS: SUCROFERRIC OXYHYDROXIDE 500 MG PO SCH ×3 (09:11→15:36)
[2018-08-23] MEDS: Patiromer POWDER* 8.4 GM PAK PO SCH ×3 (09:14→15:35)
--- NOTE | 2018-08-23 16:13 | PN ---
Subjective Date of Service: 08/23/18 Interval History: f/u AI, admitted with exertional dyspnea/presyncope No syncope Only dyspnea and chest discomfort with exertion No bed availability at [facility] in [place] through transfer center (they declined transfer) I discussed with Dr. Hamm at [facility] and patient will be arranged for transfer Friday at some point, still needs diagnostic coronary angiogram Discussed with Dr. Saeed and plan for HD Friday Possibility of diagnostic coronary angiogram here Friday with Dr. Castillo either before after HD Medications Active Medications: Acetaminophen (Tylenol Tab*) 650 mg PO Q4H PRN PRN Reason: PAIN Last Admin: 08/23/18 06:05 Dose: 650 mg Albuterol (Ventolin Hfa Inhaler*) 2 puff INH Q6H PRN PRN Reason: SHORTNESS OF BREATH Albuterol (Ventolin 2.5 Mg/3 Ml Neb.Lucia*) 2.5 mg INH Q4H PRN PRN Reason: SOB/WHEEZING Cinacalcet (Sensipar Tab*) 30 mg PO DAILY [facility] Last Admin: 08/23/18 09:08 Dose: 30 mg Ergocalciferol (Drisdol Cap*) 50,000 unit PO Th [facility] Last Admin: 08/20/18 20:18 Dose: 50,000 unit Furosemide (Lasix Tab*) 60 mg PO BID [facility] Last Admin: 08/23/18 09:09 Dose: 60 mg Heparin Sodium (Porcine) (Heparin Vial(*)) 5,000 units SUBCUT Q12HR [facility] Last Admin: 08/23/18 09:09 Dose: 5,000 units Metolazone (Zaroxolyn Tab*) 5 mg PO DAILY@0830 [facility] Last Admin: 08/23/18 09:08 Dose: 5 mg Nitroglycerin (Nitroglycerin Tab 0.4 Mg*) 0.4 mg SL Q5M PRN PRN Reason: PAIN - CHEST Nft: Sucroferric Oxyhydroxide [ Velphoro] 500 Mg 500 mg PO TID [facility] Last Admin: 08/23/18 15:36 Dose: Not Given Patiromer (Veltassa Powder*) 8.4 gm PO [facility] Last Admin: 08/23/18 15:35 Dose: 8.4 gm Objective Vital Signs: Temp Pulse Resp BP Pulse Ox 97.6 F 85 16 140/53 100 08/23/18 15:24 08/23/18 15:24 08/23/18 15:24 08/23/18 15:24 08/23/18 15:24 Oxygen Devices in Use Now: None Appearance: nad, pleasant Neck: Trachea Midline, - - uncertain jvp Respiratory: Symmetrical Chest Expansion and Respiratory Effort, Clear to Auscultation Cardiovascular: - - RRR, 3/6 systolic murmur heard best left base Extremities: - - 1+ pitting edema, left arm av fistula Neurological: Alert and Oriented x 3 Laboratory Results: 08/23/18 07:24 08/23/18 07:24 INR (Anticoag Therapy) 1.14 (0.77-1.02) H 08/19/18 17:49 APTT 31.7 seconds (26.0-36.3) 08/19/18 17:49 Total Bilirubin 0.40 mg/dL (0.2-1.0) 08/20/18 06:32 AST 12 U/L (13-39) L 08/20/18 06:32 ALT 14 U/L (7-52) 08/20/18 06:32 Alkaline Phosphatase 90 U/L (34-104) 08/20/18 06:32 CK-MB (CK-2) 2.7 ng/mL (0.6-6.3) 08/19/18 13:55 B-Natriuretic Peptide 3621 pg/mL (<=100) H 08/21/18 08:21 Total Protein 6.5 g/dL (6.4-8.9) 08/20/18 06:32 Albumin 3.4 g/dL (3.2-5.2) 08/20/18 06:32 Globulin 3.1 g/dL (2-4) 08/20/18 06:32 Albumin/Globulin Ratio 1.1 (1-3) 08/20/18 06:32 TSH 1.43 mcIU/mL (0.34-5.60) 08/19/18 13:55 08/19/18 08/19/18 08/19/18 13:55 15:13 17:49 Troponin I 0.01 0.00 0.00 08/19/18 08/20/18 20:57 00:35 Troponin I 0.00 0.00 EKG Data: ekg this admission nsr, diffuse repolarization abnormalities Assessment/Plan 1. 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 ESRD on HD - L arm fistula - Had Nephrectomy as child per patients account 3. HTN 4. Obesity - Plan for HD Friday, possibility of pre-op diagnostic coronary angiogram here that day with Dr. Castillo (vs. at [facility]) - Transfer to [facility] Friday (see HPI) Thank you for allowing me to participate in the cardiovascular care of this patient. Please do not hesitate to contact me with questions or concerns.
--- NOTE | 2018-08-23 18:50 | PN ---
Subjective Date of Service: 08/23/18 Interval History: Pt seen and examined. Meds and labs reviewed. CC: N/A ROS: Denied KRISHNA/dizziness, F/C, N/V, CP, SOB, increased cough, sputum production , abd pain, diarrhea, constipation, dysuria, myalgias, arthralgias, throat pain , and new skin lesions. The rest of the 14 point ROS are unremarkable. PHYSICAL EXAM: GEN APPEARANCE: Awake, not in acute distress HEENT: NC/AT, PERRLA, moist oral mucosa, (-) throat erythema NECK: Soft, supple, (-) cervical LAD, (+)JVD improved HEART: S1S2 WNL, RRR, No MRG CHEST: CTA, BL, GAE, No W/R/R ABD: Soft, ND/NT, NABS 4x Q EXT: No C/C/BLLE edema (+)2 SKIN: Warm to touch PSYCH: No active psychosis, hallucinations, depression, SI/HI Objective Active Medications: Acetaminophen (Tylenol Tab*) 650 mg PO Q4H PRN PRN Reason: PAIN Last Admin: 08/23/18 06:05 Dose: 650 mg Albuterol (Ventolin Hfa Inhaler*) 2 puff INH Q6H PRN PRN Reason: SHORTNESS OF BREATH Albuterol (Ventolin 2.5 Mg/3 Ml Neb.Lucia*) 2.5 mg INH Q4H PRN PRN Reason: SOB/WHEEZING Cinacalcet (Sensipar Tab*) 30 mg PO DAILY [facility] Last Admin: 08/23/18 09:08 Dose: 30 mg Ergocalciferol (Drisdol Cap*) 50,000 unit PO Th [facility] Last Admin: 08/20/18 20:18 Dose: 50,000 unit Furosemide (Lasix Tab*) 60 mg PO BID [facility] Last Admin: 08/23/18 09:09 Dose: 60 mg Heparin Sodium (Porcine) (Heparin Vial(*)) 5,000 units SUBCUT Q12HR [facility] Last Admin: 08/23/18 09:09 Dose: 5,000 units Metolazone (Zaroxolyn Tab*) 5 mg PO DAILY@0830 [facility] Last Admin: 08/23/18 09:08 Dose: 5 mg Nitroglycerin (Nitroglycerin Tab 0.4 Mg*) 0.4 mg SL Q5M PRN PRN Reason: PAIN - CHEST Nft: Sucroferric Oxyhydroxide [ Velphoro] 500 Mg 500 mg PO TID [facility] Last Admin: 08/23/18 15:36 Dose: Not Given Patiromer (Veltassa Powder*) 8.4 gm PO AC [facility] Last Admin: 08/23/18 15:35 Dose: 8.4 gm Vital Signs - 8 hr 08/23/18 08/23/18 11:11 15:24 Temperature 97.5 F 97.6 F Pulse Rate 84 85 Respiratory 16 16 Rate Blood Pressure 113/48 140/53 (mmHg) O2 Sat by Pulse 92 100 Oximetry Oxygen Devices in Use Now: None Result Diagrams: 08/23/18 07:24 08/23/18 07:24 Microbiology and Other Data: Microbiology 08/21/18 08:21 Aerobic Blood Culture - Preliminary Blood Venous No Growth Day 1 Anaerobic Blood Culture - Preliminary No Growth Day 1 08/20/18 15:15 Aerobic Blood Culture - Preliminary Blood Venous No Growth Day 1 Anaerobic Blood Culture - Preliminary No Growth Day 1 Assess/Plan/Problems-Billing Assessment: - Patient Problems (1) Aortic valve insufficiency Current Visit: Yes Status: Acute Code(s): I35.1 - NONRHEUMATIC AORTIC (VALVE ) INSUFFICIENCY SNOMED Code(s): 13289394 Comment: #Severe AI: -Likely cause of fluid overload -S/P UF via HD yesterday -Continue Lasix and Metolazone for now, although pt seems to be poorly responsive to diuretics at this time -Suspected healed endocarditis and for ANABEL post dialysis and UF -Pt prefers [facility] for AV surgery in the future and will defer , however, there is no bed availability in [facility], therefor Dr. Hamm of [facility] has been contacted by Dr. Iniguez for transfer tomorrow after planned coronary angiogram and HD tomorrow -Appreciate Dr. Burks help (2) Hyperkalemia Current Visit: Yes Status: Acute Code(s): E87.5 - HYPERKALEMIA SNOMED Code (s): 55983182 Comment: -Continue Patiromer needs to qAC instead of qday -For HD prior to planned transfer tommorow -Continue watchful waiting -Continue renal diet (3) Chest pain Current Visit: No Status: Acute Code(s): R07.9 - CHEST PAIN, UNSPECIFIED SNOMED Code(s): 64715444 Comment: -Troponin (-) x 5 -Likely due to above (4) ESRD (end stage renal disease) Current Visit: No Status: Acute Code(s): N18.6 - END STAGE RENAL DISEASE SNOMED Code(s): 86947135 Comment: -Continue HD; next one scheduled on Friday -Continue renal diet on top of HH diet (5) DVT prophylaxis Current Visit: No Status: Acute Code(s): RVJ1084 - SNOMED Code(s): 244760273 Comment: -Continue Heparin SQ, renally dosed Status and Disposition: -As above -No skilled PT needs identified -For transfer to [facility] tomorrow
[2018-08-24] MEDS ORDERED: guaiFENesin ER TAB 600 MG PO ONE (00:49)
[2018-08-24 06:50] LABS: ABS Basophils 0.1 10^3/ul (0-0.2); ABS Eosinophils 0.4 10^3/ul (0-0.6); ABS Lymphocytes 1.4 10^3/ul (1.0-4.8); ABS Monocytes 0.3 10^3/ul (0-0.8); ABS Neutrophils 1.9 10^3/ul (1.5-7.7); ABS Nucleated RBC 0 10^3/ul; Eosinophil % 9.2 %; Hematocrit 32 % (42-52); Hemoglobin 10.3 g/dl (14.0-18.0); Lymphocyte % 35.5 %; Mean Corpuscular HGB Conc 33 g/dl (31-36); Mean Corpuscular Hemoglobin 29 pg (27-31); Mean Corpuscular Volume 90 fL (80-94); Nucleated Red Blood Cells % 0.3; Platelet Count 172 10^3/ul (150-450); Red Blood Count 3.54 10^6/ul (4.00-5.40); Red Cell Distribution Width 18 % (10.5-15)
[2018-08-24 07:05] LABS: BUN/Creatinine Ratio 5.1 (8-20); Calcium 8.6 mg/dL (8.6-10.3); EGFR Non-African American 3.4 (>60); Magnesium 2.7 mg/dL (1.9-2.7)
[2018-08-24 07:09] LABS: Potassium 5.7 mmol/L (3.5-5.0)
[2018-08-24] MEDS: Furosemide TAB* 20 MG PO SCH ×2 (09:25→21:17)
[2018-08-24] MEDS: Metolazone TAB* 5 MG PO SCH (09:25)
[2018-08-24] MEDS: Cinacalcet TAB* 30 MG PO SCH (09:25)
[2018-08-24] MEDS: Heparin VIAL(*) 5000 UNITS/ML VIAL (FIVE THOUSAND) SUBCUT SCH ×2 (09:26→21:32)
[2018-08-24] MEDS: SUCROFERRIC OXYHYDROXIDE 500 MG PO SCH ×3 (09:26→16:18)
[2018-08-24] MEDS: Patiromer POWDER* 8.4 GM PAK PO SCH ×3 (09:28→18:25)
[2018-08-24] MEDS ORDERED: Midazolam* 1 MG/ML 10 ML VIAL (10 MG) ONE (15:38)
[2018-08-24] MEDS ORDERED: fentaNYL* 50 MCG/ML 2 ML VIAL (100 MCG VIAL) ONE (15:38)
[2018-08-24] MEDS ORDERED: Lidocaine 1% INJ* 10 MG/ML 30 ML SDV ONE (15:39)
[2018-08-24] MEDS ORDERED: nitroGLYCERIN DRIP* 25,000 MCG/250 ML BTL ONE (15:39)
[2018-08-24] MEDS ORDERED: Heparin(*) 1000 UNIT/ML 10 ML VIAL CATH LAB IV ONE (15:39)
[2018-08-24] MEDS ORDERED: Heparin 2 UNITS/ML IVPREMIX* 2,000 ML IV ONE (15:39)
[2018-08-24] MEDS ORDERED: VERAPAMIL 2.5 MG/ML 2 ML VIAL ** 5 mg/2 ml ONE (15:39)
[2018-08-24] MEDS ORDERED: Iodixanol 320 (CONTRAST) 100 ML SDV ONE (15:40)
[2018-08-24] MEDS ORDERED: NS 0.9% 1000 ML* 1,000 ML IV SCH (16:30)
[2018-08-24] MEDS ORDERED: amLODIPine TAB* 5 MG PO SCH (18:00)
[2018-08-24] MEDS ORDERED: Metoprolol Tartrate IV* 1 MG/ML 5 ML VIAL IV PRN (18:24)
[2018-08-24] MEDS: Acetaminophen TAB* 325 MG PO PRN (19:12)
[2018-08-24] MEDS ORDERED: Metoprolol Tartrate IV* 1 MG/ML 5 ML VIAL IV ONE (19:58)
[2018-08-24 22:09] LABS: Magnesium 2.4 mg/dL (1.9-2.7); Potassium 4.2 mmol/L (3.5-5.0)
--- NOTE | 2018-08-25 00:05 | TRS ---
CC: Dr. Zhou Gao; Dr. Claudia Benton; Dr. Iniguez; Dr. Castillo; Dr. Hamm of [facility].* TRANSFER SUMMARY: DATE OF ADMISSION: DATE OF DISCHARGE: 08/24/18 DISCHARGE DIAGNOSES: As follows: 1. Severe aortic insufficiency, likely causing fluid overload and has multiple indications for surgery including left ventricular dilation as well as mild left ventricular dysfunction and symptomatic and markedly abnormal treadmill test. 2. Hyperkalemia, likely secondary to endstage renal disease. 3. Chest pain, likely secondary to #1, resolved, acute coronary syndrome has been ruled out. 4. Endstage renal disease, on hemodialysis. DISCHARGE MEDICATIONS: 1. Albuterol 2 puffs inhalation q.6 p.r.n. 2. Cinacalcet 30 mg p.o. daily. 3. Ergocalciferol 50,000 units p.o. weekly. 4. Lasix 60 mg p.o. b.i.d. 5. Metolazone 5 mg p.o. daily. 6. Nitroglycerin 0.4 mg sublingual q.5 minutes p.r.n. 7. Patiromer 8.4 g p.o. q.a.c. 8. Sucroferric oxyhydroxide 500 mg p.o. t.i.d. a.c. 9. Tylenol 650 mg p.o. q.6 p.r.n. 10. Amlodipine 10 mg p.o. daily. HISTORY OF PRESENT ILLNESS/HOSPITAL COURSE: The patient is a 37-year-old - [place] gentleman with history of ESRD, on hemodialysis, as well as history of previous illicit drug use and morbid obesity, who was recently discharged from our facility on 07/02/18 after he was admitted 2 days prior due to cellulitis. He had been treated with IV clindamycin and cultured at that time and was found to be contaminated with bacillus species. During that admission, he also complained of chest pain and had a Lexiscan stress test, which was otherwise read as low probability and troponins were found to be normal and this has been cycled few times prior to his discharge. He then re- presented and readmitted on 08/19/18 due to exertional chest pain and shortness of breath and feeling as if he is confused with exertion while walking uphill to his home. Upon review of his 2D echo, it was found that he had severe aortic regurgitation and hence he was referred to cardiology service, who noted that given his severe aortic insufficiency, he would likely require cardiovascular surgery to correct this along with left ventricular dilatation with mild LV dysfunction that is symptomatic and with markedly abnormal treadmill test. Given this, Dr. Iniguez has spoken with Dr. Hamm of [facility], who has accepted the patient for transfer to correct his aortic insufficiency. Prior to this planned discharge, he had hemodialysis as scheduled for today as well as had a diagnostic coronary angiogram by Dr. Castillo, who mentions that his coronaries are clear. The official report is still currently pending at the time of this dictation. He advised that the patient can be transferred to [facility] as planned, which is at around 6:30 in the morning tomorrow. REVIEW OF SYSTEMS: The patient denied any current headaches, dizziness, fevers , chills, nausea, vomiting, chest pain, shortness of breath, increased cough and /or sputum production, abdominal pain, diarrhea, constipation, pain and/or increased frequency on urination, myalgias or arthralgias, throat pain or new skin lesions. The rest of the 14-point review of systems is otherwise unremarkable. PHYSICAL EXAMINATION: Shows the most recent vital signs of records 187/62 and hence amlodipine was started, 82 beats per minute heart rate, 19 per minute respiratory rate, saturating at 100% on room air. General Appearance: The patient is awake, not in acute distress. HEENT: Normocephalic, atraumatic. PERRLA. Extraocular muscles intact. Negative for icterus. Moist oral mucosa, negative throat erythema. Neck is soft, supple with no cervical lymphadenopathy. No JVD. Heart: S1, S2 within normal limits. Regular rate and rhythm with positive holosystolic murmur, 4/6. No rubs or gallops appreciated. Abdomen is soft, nondistended, nontender. Normoactive bowel sounds x4 quadrants. Extremities: No cyanosis, clubbing with 1 to 2+ bilateral lower extremity edema. Psychiatric: No active psychosis, depression , suicidal or homicidal ideation, blunt affect. TIME SPENT: The total time spent evaluating the patient, reviewing pertinent data and appropriate documentation is 65 minutes. [id number]/[facility] #: [id number] [facility]
--- NOTE | 2018-08-25 01:35 | CATH ---
CC: Dr. Ni; Dr. Ricardo Iniguez * CARDIAC CATHETERIZATION REPORT: DATE OF PROCEDURE: 08/24/18 - ROOM #451 PROCEDURE: Cardiac catheterization. INDICATION: Aortic regurgitation. HISTORY: The patient is a 37-year-old gentleman with a history of end-stage renal disease, on hemodialysis. The patient was admitted to the hospital with congestive heart failure. The patient's echocardiogram showed severe aortic regurgitation with hyperdynamic left ventricular function. The patient will be scheduled for aortic valve replacement. Cardiac catheterization was recommended. DESCRIPTION OF PROCEDURE: The patient was brought to the cardiac catheterization lab in a fasting state. Informed consent had been obtained prior to the procedure, all labs had been reviewed. The patient's right wrist was prepped and draped in the usual fashion. A 1% lidocaine was used for local anesthesia. The radial artery was entered by a Seldinger technique and a guidewire was placed. Oer the guidewire, a 6-Nicaraguan hydrocolloid sheath was placed. The patient underwent coronary angiography using a 6-Nicaraguan TIG catheter. A total of 70 cc of Visipaque dye was used and total of 2.1 minutes of fluoro time was used. FINDINGS: Central aortic blood pressure 106/60 with a mean of 80. CORONARY ARTERIES: 1. Left main artery: The left main was normal in size. It trifurcated into the LAD, ramus artery, and circumflex artery. There was no evidence of stenosis. 2. Left anterior descending artery: The LAD was normal in size. It gave off 1 diagonal vessel. There was no evidence of stenosis. 3. Ramus artery. The ramus artery was a moderate size vessel with no evidence of coronary artery disease. 4. Left circumflex artery: The circumflex artery was a large artery. It gave off 2 obtuse marginal branches. There was no evidence of stenosis. 5. Right coronary artery. The RCA was a large dominant vessel giving off to the PDA and a posterolateral branch. There was no evidence of stenosis. IMPRESSION: Normal coronary arteries. RECOMMENDATION: The patient will be evaluated for aortic valve replacement for a severe aortic regurgitation. [id number] #: [id number] [facility]PITALJose Raul
[2018-08-25 05:35] VITALS: BP 154/53
== END 2018-08-25 08:21 | disposition short-term general hospital (02) | DRG 192 ==
LOC: ED 12:35 → MEDTELE 16:09 → OBSVTOIN 08-20 14:00
PROVIDERS: ADMIT Student in an Organized Health Care Education/Training Program; ATTEND Student in an Organized Health Care Education/Training Program
PROC: 4A02XM4 Measurement of Cardiac Total Activity, External Approach (ICD-10-PCS; 2018-08-20)
PROC: 5A1D70Z Performance of Urinary Filtration, Intermittent, Less than 6 Hours Per Day (ICD-10-PCS; 2018-08-21)
PROC: B24BZZ4 Ultrasonography of Heart with Aorta, Transesophageal (ICD-10-PCS; principal; 2018-08-21 13:30)
PROC: 4A023N7 Measurement of Cardiac Sampling and Pressure, Left Heart, Percutaneous Approach (ICD-10-PCS; 2018-08-24)
PROC: B2111ZZ Fluoroscopy of Multiple Coronary Arteries using Low Osmolar Contrast (ICD-10-PCS; 2018-08-24)
PROC: 5A1D70Z Performance of Urinary Filtration, Intermittent, Less than 6 Hours Per Day (ICD-10-PCS; 2018-08-24)
DX: I08.3 Combined rheumatic disorders of mitral, aortic and tricuspid valves (principal); N18.6 End stage renal disease; I42.8 Other cardiomyopathies; I13.0 Hypertensive heart and chronic kidney disease with heart failure and stage 1 through stage 4 chronic kidney disease, or unspecified chronic kidney disease; F32.9 Major depressive disorder, single episode, unspecified; E89.0 Postprocedural hypothyroidism; E87.70 Fluid overload, unspecified; I27.20 Pulmonary hypertension, unspecified; E66.9 Obesity, unspecified; I50.9 Heart failure, unspecified; E87.5 Hyperkalemia; Z90.5 Acquired absence of kidney; Z99.2 Dependence on renal dialysis; Z83.3 Family history of diabetes mellitus; Z88.5 Allergy status to narcotic agent; Z87.891 Personal history of nicotine dependence; Z68.38 Body mass index [BMI] 38.0-38.9, adult
CPT/HCPCS: 36415; 71045; 80048; 80051; 80053; 82550; 82553; 82565; 83605; 83735; 83880; 84100; 84132; 84443; 84484; 84520; 85025; 85060; 85610; 85652; 85730; 86140; 87040; 90935; 93005; 93308; 93312; 93325; 93351; 93454; 99156; 99157; 99284; A9270-GY; G0257; G0378; G8978-GP-CH; G8979-GP-CH; G8980-GP-CH; J0610; J1200; J1644; J1940; J2250; J2310; J3010; J3490; J7611

== ENCOUNTER 2019-02-11 11:23 | Emergency (ER) | payer MEDICARE, MEDICAID ==
--- NOTE | 2019-02-11 11:49 | ED ---
Skin Complaint - HPI Summary HPI Summary: Patient is a 38-year-old male who presents emergency Department from dialysis for evaluation of bleeding from fistula. Patient states he had his routine dialysis this morning and site would not stop bleeding after procedure. Pressure was applied with clamp and patient referred to ER. Patient otherwise denies any complaints. He is not anticoagulated. Symptoms are mild in severity. No current modifying factors. - History of Current Complaint Chief Complaint: EDBleedingDisorder Time Seen by Provider: 02/11/19 11:46 Stated Complaint: BLEEDING L ARM PER PT Hx Obtained From: Patient Pain Intensity: 2 - Additional Pertinent History Primary Care Physician: [id number] - Allergy/Home Medications Allergies/Adverse Reactions: Allergies Allergy/AdvReac Type Severity Reaction Status Date / Time morphine Allergy Hallucinati Verified 02/11/19 11:42 ons PMH/Surg Hx/FS Hx/Imm Hx Previously Healthy: Yes Endocrine/Hematology History: Reports: Hx Diabetes Cardiovascular History: Reports: Hx Angina - Walking up hills, Hx Hypertension Denies: Hx Hypercholesterolemia Respiratory History: Denies: Hx Asthma, Hx Chronic Obstructive Pulmonary Disease (COPD) History: Reports: Hx Chronic Renal Failure, Hx Dialysis - last 08-18-18, Other Problems/Disorders - ESRD Sensory History: Denies: Hx Contacts or Glasses, Hx Hearing Aid Opthamlomology History: Denies: Hx Contacts or Glasses Psychiatric History: Reports: Hx Depression Denies: Hx Eating Disorder, Hx of Violent Episodes Against Others - Surgical History Surgery Procedure, Year, and Place: none - Immunization History Date of Tetanus Vaccine: unk Date of Influenza Vaccine: fall 2017 Infectious Disease History: No Infectious Disease History: Denies: Traveled Outside the [place] in Last 30 Days - Family History Known Family History: Positive: Diabetes - brother - Social History Alcohol Use: None Hx Substance Use: No Substance Use Type: Reports: None Hx Tobacco Use: No Smoking Status (MU): Never Smoked Tobacco Review of Systems Cardiovascular: Negative Respiratory: Negative Positive: Other - bleed from left arm fistula All Other Systems Reviewed And Are Negative: Yes Physical Exam Triage Information Reviewed: Yes Vital Signs On Initial Exam: Initial Vitals Temp Pulse Resp BP Pulse Ox 98.3 F 92 18 151/104 100 02/11/19 11:38 02/11/19 11:38 02/11/19 11:38 02/11/19 11:38 02/11/19 11:38 Vital Signs Reviewed: Yes Appearance: Positive: Well-Appearing - Pt. sitting on bed in NAD. Skin: Positive: Warm, Dry, Other - Fistula noted to left lower arm with bandage and clamp in place. Head/Face: Positive: Normal Head/Face Inspection Eyes: Positive: Normal, EOMI Neck: Positive: Supple Neurological: Positive: Normal, CN Intact II-III Psychiatric: Positive: Affect/Mood Appropriate Diagnostics - Vital Signs Vital Signs Temp Pulse Resp BP Pulse Ox 02/11/19 11:38 98.3 F 92 18 151/104 100 - Laboratory Lab Statement: Any lab studies that have been ordered have been reviewed, and results considered in the medical decision making process. Course/Dx - Course Course Of Treatment: Patient presenting with bleeding from fistula. Patient presented with clamp. Clamp was removed and was initially going to apply TXA and pressure dressing but bleeding has stopped. There is a very superficial area distally with a small amount of bleeding that is controlled with pressure. Dressing was placed over area and advised patient to leave on until tomorrow. We'll return to the ER bleeding returns. Patient understands and agrees with plan. - Diagnoses Provider Diagnoses: Complication of AV dialysis fistula Discharge - Sign-Out/Discharge Documenting (check all that apply): Patient Departure Patient Received Moderate/Deep Sedation with Procedure: No - Discharge Plan Condition: Improved Disposition: HOME Referrals: Cecilia Fay MD [Primary Care Provider] - Additional Instructions: Keep dressing in place until tomorrow morning Return to ER if bleeding returns - Billing Disposition and Condition Condition: IMPROVED Disposition: Home
[2019-02-11] MEDS ORDERED: Tranexamic Acid 1,000 MG/10 ML SDV TOPICAL ONE (11:55)
--- OUTSIDE RECORDS SUMMARY | 2019-02-11 12:10 | XMS REPORT | Continuity of Care Document ---
:1980 External Reference #:[id number] Author Name Deepali Arevalo Care Team Providers Name Role Phone Cecilia Fay MD Primary Care Physician Unavailable Payers Date Identification Numbers Payment Provider Subscriber Policy Number: [id number] Medicare Kelvin Govea PayID: [id number] [address] [place] [address] Effective: 2018 Policy Number: [id number] Medicaid Kelvin Govea Group Name: 1 1 [address] PayID: [id number] [place] [address] Problems Active Problems Provider Date Heart valve replacement Kal Ruiz M.D., [facility], Onset: 09/14/2018 [facility] End-stage renal disease Cecilia Fay MD Onset: 09/21/2018 End stage renal failure on dialysis Cecilia Fay MD Onset: 09/21/2018 Learning difficulties Cecilia Fay MD Onset: 09/21/2018 Social History Type Date Description Comments Sex Unknown Marital Status Single Lives With Brother Occupation Unemployed ETOH Use Denies alcohol use Tobacco Use Start: Unknown End: Patient is a former smoker Unknown Recreational Drug Use Denies Drug Use Tobacco Use Start: Unknown Heavy tobacco smoker (more than 10 cigarettes/day) Smoking Status Reviewed: 02/05/19 Heavy tobacco smoker (more than 10 cigarettes/day) Exercise Type/Frequency Walks daily Allergies, Adverse Reactions, Alerts Active Allergies Reaction Severity Comments Date Morphine doesnt like it..... 09/10/2018 Medications Active Medications SIG Qnty Indications Ordering Date Provider Albuterol Sulfate HFA 2 puffs by mouth 8gm Cecilia Fay MD 02/05/2019 four times a day 108(90Base) mcg/Act as needed Aerosol Sensipar 2 by mouth once a Cecilia Fay MD 12/29/2018 60mg Tablets day Norvasc 2 by mouth twice 360tabs Cecilia Fay MD 5mg Tablets a day Tylenol 2 tablets every 6 90caps Kal Hampton 325mg Capsules hours as needed Humberto Ruiz, for pain FACC, FASNC Ergocalciferol one every weekly Unknown 24045Vbmm ( duplicated not Capsules taking) Metolazone 1 by mouth every 90tabs Cecilia Fay MD 5mg Tablets day Velphoro chew 1 by mouth 3 Unknown 500mg Chewtabs times a day with meals Aspirin Ec 1 tablet by mouth 90tabs Cecilia Fay MD 325mg Tablets daily DR Stern po daily ( not Unknown 8.4G taking) Furosemide take 3 tablets 540tabs Cecilia Fay MD 20mg Tablets twice a day by mouth History Medications Ventolin HFA 2 puffs by mouth 8gm Cecilia Fay MD - 108(90Base) four times a day 02/05/2019 mcg/Act Aerosol as needed Sensipar 1 by mouth 3 times Unknown - 30mg Tablets a day 12/29/2018 Hydrocodone-Acetaminop 1 tab by mouth 42tabs Cecilia Fay MD - hen every 4 hours as 10/19/2018 5-325mg Tablets needed for pain Lasix 1 by mouth every Unknown - 40mg Tablets day 10/18/2018 Cinacalcet HCL 1 tablet po daily Unknown - 30mg ( last taking in 10/18/[address] [facility] 09/04/`9not taking ) Levalbuterol Tartrate inhale 2 puffs by 15gm Cecilia Fay MD - mouth every 4 10/19/2018 45mcg/Act Aerosol hours as needed Calcium Acetate (Phos Qac Unknown - Binder) 09/09/2018 667mg Capsules Aspirin 81 Low Dose 1 by mouth every Unknown - 81mg day 09/13/2018 Chewtabs Tramadol HCL 0.5 tablets by Unknown - 50mg Tablets mouth every 6 09/09/2018 hours as needed pain (25 mg) Vitamin D 1 by mouth every 30caps Cecilia Fay MD - (Cholecalciferol) day 10/19/2018 1000Unit Capsules Benzonatate one by mouth three Unknown - 200mg times daily 09/09/2018 Capsules Clindamycin HCL take 1 cap every 6 Unknown - 300mg hrs. 09/09/2018 Capsules Floranex 2 by mouth every Unknown - Tablets day 09/09/2018 Vital Signs Date Vital Result Comment 02/05/2019 1:46pm Height 69 inches 5'9" Weight 243.00 lb Heart Rate 104 /min BP Systolic Sitting 112 mmHg BP Diastolic Sitting 78 mmHg Body Temperature 98.9 F O2 % BldC Oximetry 96 % BMI (Body Mass Index) 35.9 kg/m2 12/29/2018 4:54pm Height 69 inches 5'9" Weight 247.38 lb Heart Rate 90 /min BP Systolic 134 mmHg BP Diastolic 97 mmHg Body Temperature 97.7 F O2 % BldC Oximetry 98 % BMI (Body Mass Index) 36.5 kg/m2 10/19/2018 11:27am Height 69 inches 5'9" Weight 250.00 lb Heart Rate 100 /min BP Systolic Sitting 142 mmHg BP Diastolic Sitting 97 mmHg Body Temperature 97.9 F O2 % BldC Oximetry 96 % BMI (Body Mass Index) 36.9 kg/m2 10/12/2018 10:57am Weight 245.00 lb Heart Rate 90 /min BP Systolic 138 mmHg BP Diastolic 94 mmHg Respiratory Rate 18 /min Body Temperature 98.4 F O2 % BldC Oximetry 97 % 09/21/2018 4:14pm Height 69 inches 5'9" Weight 245.00 lb Heart Rate 94 /min BP Systolic Sitting 108 mmHg BP Diastolic Sitting 77 mmHg Body Temperature 98.8 F O2 % BldC Oximetry 97 % BMI (Body Mass Index) 36.2 kg/m2 09/14/2018 1:31pm BP Systolic Sitting 110 mmHg Rue lg cuff BP Diastolic Sitting 82 mmHg Rue lg cuff BP Systolic Standing 110 mmHg Rue lg cuff BP Diastolic Standing 74 mmHg Rue lg cuff 09/10/2018 11:22am Weight 250.00 lb Heart Rate 90 /min BP Systolic 118 mmHg BP Diastolic 80 mmHg Respiratory Rate 18 /min Body Temperature 98.7 F Pain Level 10 chest O2 % BldC Oximetry 97 % Procedures Date Code Description Status 12/29/2018 40047 EKG Tracing & Interpretation Completed 09/14/2018 60490 EKG Tracing & Interpretation Completed 08/24/2018 57635 Cath PLMT&NJX L Ventriculog Img S&I Completed 08/21/2018 04478 Moderate Sedation Services; Same Phys Each Additional 15 Completed Mins 08/21/2018 89004 Moderate Sedation Services; Same Phys Intl 15 Mins; PT >=5 Completed Years 08/21/2018 47681 Color Flow Doppler/Interp & Reprt Completed 08/21/2018 29942 Pulse Wave/Continuous-Interp.RPT Completed 08/21/2018 71103 Echocardiography, Transesophageal, Real Time W/Image 2D Completed W/W/O M-M 08/20/2018 70374 Stress Test Supervsn W/Out I/R Completed 08/20/2018 73737 Treadmill Interp/Report Only Completed 08/20/2018 37013 ECHO Transthorasic Realtime 2D W Doppler & Color Flow Hosp Completed 08/20/2018 09052 Stress ECHO Interpretation/Report Hospital Completed 06/30/2018 62336 Treadmill Interp/Report Only Completed 06/30/2018 48564 Stress Test Supervsn W/Out I/R Completed 06/18/2018 93148 EKG, Interpretation Only Completed 06/16/2018 27130 ECHO Transthorasic Realtime 2D W Doppler & Color Flow Hosp Completed 06/16/2018 30521 Treadmill Interp/Report Only Completed 06/16/2018 20718 Stress Test Supervsn W/Out I/R Completed 06/16/2018 34221 EKG, Interpretation Only Completed Encounters Type Date Location Provider Dx Diagnosis Office Visit 12/29/2018 Zulema Fay MD R07.89 Other chest pain 5:00p Medicine - [facility] N18.6 End stage renal disease Z95.2 Presence of prosthetic heart valve I44.0 Atrioventricular block, first degree Office Visit 10/19/2018 11:20a Zulema Fay MD N18.6 End stage renal Medicine - [facility] disease 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 Z99.2 Dependence on renal dialysis Office Visit 10/12/2018 11:00a DO Not Use Care Martha Ronquillo, N18.6 End stage Connections DO renal disease Clinic[facility] Z95.2 Presence of prosthetic heart valve Z59.0 Homelessness Office Visit 09/21/2018 4:00p [facility] Internal Cecilia Sumeet, Z95.2 Presence of Medicine - [place] SMITH prosthetic heart valve E66.01 Morbid (severe) obesity due to excess calories Z99.2 Dependence on renal dialysis N18.6 End stage renal disease Office Visit 09/14/2018 1:45p [facility] Kal Hampton Z95.2 Presence of Of Zulema Ruiz M.D., prosthetic heart FACC, FASNC valve Office Visit 09/10/2018 11:00a DO Not Use Care Martha Z95.2 Presence of Connections DO Yg prosthetic heart [facility] valve N18.6 End stage renal disease Office Visit 08/24/2018 9:23a [facility] Rocael D. I12.0 Hyp chr kidney Of Zulema Castillo M.D. disease w stage 5 chr kidney disease or Esrd N18.6 End stage renal disease Z99.2 Dependence on renal dialysis I35.1 Nonrheumatic aortic (valve) insufficiency R93.1 Abnormal findings on dx imaging of heart and cor circ Office Visit 08/24/2018 [place] Mercedez Merlos I35.1 Nonrheumatic 10:30a amilcar Boyle MD aortic (valve) Hospitalists insufficiency E87.5 Hyperkalemia N18.6 End stage renal disease Z99.2 Dependence on renal dialysis Office Visit 08/23/2018 9:22a [facility] Ricardo S. 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 Nam Merlos I35.1 Nonrheumatic 10:30a amilcar Boyle MD aortic (valve) Hospitalists insufficiency E87.5 Hyperkalemia N18.6 End stage renal disease Z99.2 Dependence on renal dialysis Office Visit 08/20/2018 9:15a [facility] Ricardo S. 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 Nam Merlos I35.1 Nonrheumatic 10:29a amilcar Boyle MD aortic (valve) Hospitalists insufficiency E87.70 Fluid overload, unspecified N18.6 End stage renal disease Z99.2 Dependence on renal dialysis Office Visit 08/19/2018 3:16p [facility] Claudia Benton, R55 Syncope and Of Zulema Paul collapse R07.89 Other chest pain N18.6 End stage renal disease Office Visit 08/19/2018 [facility] Nam Merlos R07.9 Chest pain, 10:29a amilcar Boyle MD unspecified Hospitalists R06.00 Dyspnea, unspecified Z99.2 Dependence on renal dialysis N18.6 End stage renal disease Office Visit 07/02/2018 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 Melba E87.70 Fluid overload, 10:37a amilcar Boyle MD unspecified Hospitalists N18.6 End stage renal disease Z99.2 Dependence on renal dialysis Office Visit 06/20/2018 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 Nam Merlos I12.0 Hyp chr kidney amilcar Boyle MD disease w Hospitalists stage 5 chr kidney disease or Esrd N18.6 End stage renal disease Z99.2 Dependence on renal dialysis Office Visit 06/18/2018 1:50p [facility] Kal Hampton R07.9 Chest pain, Of Zulema Ruiz M.D., unspecified FACC, FASNC I35.0 Nonrheumatic aortic (valve) stenosis Office Visit 06/18/2018 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 Adelia I12.0 Hyp chr kidney Assoc,amilcar Day, disease w Hospitalists COMPUTER TRAINING SPECIALIST stage 5 chr kidney disease or Esrd N18.6 End stage renal disease Z99.2 Dependence on renal dialysis Office Visit 06/17/2018 7:00a [facility] Ricardo Sanon N18.6 End stage renal Of [facility] MD Nita, disease FACS R10.11 Right upper quadrant pain Office Visit 06/16/2018 11:49a 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 Ruiz ( Cardiology) after the ECHO ( write down all info for the oojakjaS16.0 Hypertensive chronic kidney disease with stage 5 chronic kidFollow up:F/U 6 dmmbqaI24.2 Dependence on renal dialysisComments:Continue 3 times a week
[2019-02-11 12:20] VITALS: BP 131/97
== END 2019-02-11 12:18 | disposition home or self-care (01) ==
LOC: ED 11:23
DX: T82.590A Other mechanical complication of surgically created arteriovenous fistula, initial encounter (principal); E11.22 Type 2 diabetes mellitus with diabetic chronic kidney disease; I12.0 Hypertensive chronic kidney disease with stage 5 chronic kidney disease or end stage renal disease; N18.6 End stage renal disease; Z99.2 Dependence on renal dialysis; Z83.3 Family history of diabetes mellitus; Z88.5 Allergy status to narcotic agent
CPT/HCPCS: 99282